=== PATIENT | female | born 1930 | race Caucasian/White ===

== ENCOUNTER 2018-03-29 11:56 | Inpatient (IN) ==
[2018-03-29] MEDS ORDERED: Vancomycin Inj 1,000 MG in Sodium Chlor 0.9% Inj 250 ML IV.SIG STA (12:31)
[2018-03-29] MEDS ORDERED: Acetaminophen 650 MG Supp RECTAL ONE (12:31)
--- NOTE | 2018-03-29 12:40 | ED ---
HPI General Chief Complaint: Fever Stated Complaint: Medical/EVAC Time Seen by Provider: 03/29/18 12:30 History of Present Illness HPI Narrative: Patient comes to the emergency department by EMS sent by her urologist after developing a fever status post lithotripsy today. Patient was given a liter of fluid and started on gentamicin prior to being transferred. Patient's states that over the past 2 days she has had 2 small episodes where she was confused but then went back to normal. States it she was fine today until she developed fever. Patient denies any pain anywhere. However patient believes it is 1975 and Matt is President thus limiting H&P. No modifying factors. Related Data Home Medications Medication Instructions Recorded Confirmed amlodipine 10 mg PO DAILY 03/29/18 03/29/18 atorvastatin 10 mg PO DAILY 03/29/18 03/29/18 carvedilol 6.25 mg PO BID 03/29/18 03/29/18 furosemide 20 mg PO DAILY 03/29/18 03/29/18 glimepiride 1 mg PO QAM 03/29/18 03/29/18 latanoprost 1 drp OPHTHALMIC (EYE) QPM 03/29/18 03/29/18 ramipril 5 mg PO BID 03/29/18 03/29/18 sucralfate 2 g PO DAILY 03/29/18 03/29/18 tamsulosin 0.4 mg PO DAILY 03/29/18 03/29/18 Allergies Allergy/AdvReac Type Severity Reaction Status Date / Time No Known Allergies Allergy Unverified 03/29/18 12:31 Review of Systems ROS Unobtainable unobtainable due to mental status [facility] Medical History Medical History Diabetes (Acute) History of hysterectomy (Acute) Hyperlipemia (Acute) Hypertension (Acute) Throat cancer (Acute) Surgical History Surgical History Knee joint replacement by other means (Acute) Social History Social History Substance History: No History of Abuse Second Hand Smoke Exposure: No Smoking Status: Never smoker How Often Do You Have a Drink Containing Alcohol: Monthly or less Recent Out of Country Travel within the Last 8 Weeks: No Immunization History Tetanus Immunization: <5 Years Hx Influenza Vaccine This Season: Yes Exam Narrative Exam Narrative: GENERAL: Well-developed, overly nourished, in no acute distress , and non-ill appearing. SKIN: Focused skin assessment warm and dry. HEAD: Atraumatic. Normocephalic. EYES: Pupils equal and round. EOMI. No scleral icterus. No injection or drainage. ENT: No nasal bleeding or discharge. Mucous membranes pink and moist. NECK: Trachea midline. Supple. No nuclear rigidity. CARDIOVASCULAR: Regular rate and rhythm. No murmur appreciated. RESPIRATORY: No accessory muscle use. No respiratory distress. Clear to auscultation. Breath sounds equal bilaterally. GASTROINTESTINAL: Abdomen soft, nondistended, and no guarding. Hepatic and splenic margins not palpable. No pulsatile mass. Tenderness to lower abdomen. MUSCULOSKELETAL: No obvious deformities. No clubbing. No cyanosis. No edema. Full range of motion. NEUROLOGICAL: Awake and alert. No obvious cranial nerve deficits. Normal speech. PSYCHIATRIC: Confused. Course Reevaluation(s) Reevaluation #1: Discussed patient with residents trade union official, who are agreeable to admit the patient. Time: 15:20 Initial Documented Vital Signs Temperature 102.6 F H 03/29/18 12:14 Respiratory Rate 16 03/29/18 12:14 Blood Pressure 147/64 H 03/29/18 12:14 Pulse Oximetry 89 L 03/29/18 12:14 Last Documented Vital Signs Temperature 100.8 F H 03/29/18 15:21 Pulse Rate 93 H 03/29/18 14:58 Respiratory Rate 14 03/29/18 12:35 Blood Pressure 123/58 L 03/29/18 14:58 Pulse Oximetry 96 03/29/18 13:24 Medical Decision Making [facility] Narrative Medical decision making narrative: Patient was seen and examined. IV was established patient placed on continuous cardiac monitoring. Sepsis protocol was initiated. Patient was given additional 2 L of IV fluid and started on vancomycin. Patient's family stabilized. Temperature came down after receiving Tylenol suppository. Discussed patient with Dr. Jenkins who saw and evaluated patient and discussed all findings plan of care with patient's family , who are agreeable for patient to be admitted. Discussed patient with residents, who are agreeable to admit the patient. Differential Diagnosis Differential Diagnosis: Sepsis, UTI, pneumonia, SBO, metabolic disturbance Lab Data Result diagrams: 03/29/18 12:47 03/29/18 12:47 Lab Results 03/29/18 03/29/18 03/29/18 Range/Units 12:47 12:47 12:47 WBC 2.5 L (4.0-11.0) th/mm3 RBC 3.55 L (4.00-5.30) mil/mm3 Hgb 10.4 L (11.6-15.3) gm/dL Hct 31.9 L (35.0-46.0) % MCV 89.9 (80.0-100.0) fL MCH 29.4 (27.0-34.0) pg MCHC 32.7 (32.0-36.0) % RDW 13.1 (11.6-17.2) % Plt Count 231 (150-450) th/mm3 MPV 7.7 (7.0-11.0) fL Neut % (Auto) 96.6 H (16.0-70.0) % Lymph % (Auto) 2.1 L (9.0-44.0) % Parker % (Auto) 0.5 (0.0-8.0) % Eos % (Auto) 0.5 (0.0-4.0) % Baso % (Auto) 0.3 (0.0-2.0) % Neut # (Auto) 2.4 (1.8-7.7) th/mm3 Lymph # (Auto) 0.1 L (1.0-4.8) th/mm3 Parker # (Auto) 0.0 (0.0-0.9) th/mm3 Eos # (Auto) 0.0 (0.0-0.4) th/mm3 Baso # (Auto) 0.0 (0.0-0.2) th/mm3 WBC Differential . Differential Comment Auto diff final PT 11.7 H (9.8-11.6) sec INR 1.2 Ratio APTT 21.6 L (24.3-30.1) sec Sodium 143 (136-145) meq/L Potassium 4.0 (3.5-5.1) meq/L Chloride 106 (98-107) meq/L Carbon Dioxide 24.6 (21.0-32.0) meq/L Anion Gap 12 (5-15) meq/L BUN 23 H (7-18) mg/dL Creatinine 1.31 H (0.50-1.00) mg/dL Estimated GFR 38 L (>89) mL/min POC Glucose (68-110) mg/dl Random Glucose 108 H (74-106) mg/dL Lactic Acid (0.4-2.0) mmol/L Calcium 8.7 (8.5-10.1) mg/dL Magnesium 1.8 (1.5-2.5) mg/dL Total Bilirubin 0.8 (0.2-1.0) mg/dL AST 14 L (15-37) U/L ALT 16 (10-53) U/L Alkaline Phosphatase 83 (45-117) U/L Total Protein 7.3 (6.4-8.2) g/dL Albumin 2.7 L (3.4-5.0) g/dL Urine Color (Yellw/Straw) Urine Clarity (Clear) Urine pH (5.0-8.5) Ur Specific [place] (1.002-1.035) Urine Protein (Neg-Trace) mg/dL Urine Glucose (UA) (Negative) mg/dL Urine Ketones (Negative) mg/dL Urine Occult Blood (Negative) Urine Nitrate (Negative) Urine Bilirubin (Negative) Urine Urobilinogen (Less than 2) mg/dL Ur Leukocyte Esterase (Negative) Urine RBC (0-3) /hpf Urine WBC (0-5) /hpf Micro UA Comment Urine Culture Comments 03/29/18 03/29/18 03/29/18 Range/Units 12:47 12:54 13:05 WBC (4.0-11.0) th/mm3 RBC (4.00-5.30) mil/mm3 Hgb (11.6-15.3) gm/dL Hct (35.0-46.0) % MCV (80.0-100.0) fL MCH (27.0-34.0) pg MCHC (32.0-36.0) % RDW (11.6-17.2) % Plt Count (150-450) th/mm3 MPV (7.0-11.0) fL Neut % (Auto) (16.0-70.0) % Lymph % (Auto) (9.0-44.0) % Parker % (Auto) (0.0-8.0) % Eos % (Auto) (0.0-4.0) % Baso % (Auto) (0.0-2.0) % Neut # (Auto) (1.8-7.7) th/mm3 Lymph # (Auto) (1.0-4.8) th/mm3 Parker # (Auto) (0.0-0.9) th/mm3 Eos # (Auto) (0.0-0.4) th/mm3 Baso # (Auto) (0.0-0.2) th/mm3 WBC Differential Differential Comment PT (9.8-11.6) sec INR Ratio APTT (24.3-30.1) sec Sodium (136-145) meq/L Potassium (3.5-5.1) meq/L Chloride (98-107) meq/L Carbon Dioxide (21.0-32.0) meq/L Anion Gap (5-15) meq/L BUN (7-18) mg/dL Creatinine (0.50-1.00) mg/dL Estimated GFR (>89) mL/min POC Glucose 120 H (68-110) mg/dl Random Glucose (74-106) mg/dL Lactic Acid 2.6 H (0.4-2.0) mmol/L Calcium (8.5-10.1) mg/dL Magnesium (1.5-2.5) mg/dL Total Bilirubin (0.2-1.0) mg/dL AST (15-37) U/L ALT (10-53) U/L Alkaline Phosphatase (45-117) U/L Total Protein (6.4-8.2) g/dL Albumin (3.4-5.0) g/dL Urine Color Red (Yellw/Straw) Urine Clarity Cloudy H (Clear) Urine pH 7.0 (5.0-8.5) Ur Specific [place] 1.006 (1.002-1.035) Urine Protein 100 H (Neg-Trace) mg/dL Urine Glucose (UA) Negative (Negative) mg/dL Urine Ketones Negative (Negative) mg/dL Urine Occult Blood Large H (Negative) Urine Nitrate Negative (Negative) Urine Bilirubin Negative (Negative) Urine Urobilinogen Less than 2 (Less than 2) mg/dL Ur Leukocyte Esterase Large H (Negative) Urine RBC (0-3) /hpf Urine WBC 171 H (0-5) /hpf Micro UA Comment Cath-culture ind Urine Culture Comments Cath-cult indicated Imaging Data Radiologist's impression: ITS Impressions Chest X-Ray 03/29/18 12:31 CONCLUSION: Mild pulmonary venous congestion. No definite acute pulmonary infiltrates. Abdomen/Pelvis CT 03/29/18 12:35 CONCLUSION: 1. Left kidney stones. Left ureteral stent in satisfactory position. No evidence of perinephric hematoma or other specific complication 2. Gallstone. Unexplained density adjacent to the right lobe of the liver which could be exophytic liver mass or other mass or artifactual in the setting of significant patient motion. ECG Data Interpretation: EKG reviewed by Dr. Jenkins shows sinus tachycardia with ventricular rate of 106. No STEMI. Discharge Plan Discharge Disposition Patient Disposition: 30 Still Patient Discharge Details Discharge Problem: Sepsis, Acute UTI Physicians Team ED Provider: Broderick Jenkins ED Midlevel Provider: Aly Beaulieu Attending Provider: Laura Figueroa Discharge Interventions Interventions: Vital Signs Last Done: 03/29/18 15:21 Status ED Status: Admitted Patient
[2018-03-29] MEDS ORDERED: Sod Chloride 0.9% Inj 1,000 ML IV.SIG SCH ×2 (12:45)
[2018-03-29 13:17] LABS: Baso % (Auto) 0.3 % (0.0-2.0); Eos % (Auto) 0.5 % (0.0-4.0); Hematocrit 31.9 % (35.0-46.0); Hemoglobin 10.4 gm/dL (11.6-15.3); Lymph # (Auto) 0.1 th/mm3 (1.0-4.8); Lymph % (Auto) 2.1 % (9.0-44.0); Mean Corpuscular HGB Conc 32.7 % (32.0-36.0); Mean Corpuscular Hemoglobin 29.4 pg (27.0-34.0); Mean Corpuscular Volume 89.9 fL (80.0-100.0); Mean Platelet Volume 7.7 fL (7.0-11.0); Mono % (Auto) 0.5 % (0.0-8.0); Neut # (Auto) 2.4 th/mm3 (1.8-7.7); Neut % (Auto) 96.6 % (16.0-70.0); Platelet Count 231 th/mm3 (150-450); Red Blood Count 3.55 mil/mm3 (4.00-5.30); Red Cell Distribution Width 13.1 % (11.6-17.2); White Blood Count 2.5 th/mm3 (4.0-11.0)
[2018-03-29 13:22] LABS: Activated Partial Thrombo Time 21.6 sec (24.3-30.1); INR 1.2 Ratio; Prothrombin Time 11.7 sec (9.8-11.6)
[2018-03-29 13:34] LABS: Bilirubin,Urine Negative (Negative); Clarity,Urine Cloudy (Clear); Color,Urine Red (Yellw/Straw); Glucose,Urine (UA) Negative (Negative); Leukocyte Esterase,Urine Large (Negative); Nitrite,Urine Negative (Negative); Specific Gravity,Urine 1.006 (1.002-1.035)
[2018-03-29 13:39] LABS: Alanine Aminotransferase 16 U/L (10-53); Albumin 2.7 g/dL (3.4-5.0); Anion Gap 12 meq/L (5-15); Aspartate Aminotransferase 14 U/L (15-37); Blood Urea Nitrogen 23 mg/dL (7-18); Calcium 8.7 mg/dL (8.5-10.1); Carbon Dioxide 24.6 meq/L (21.0-32.0); Chloride 106 meq/L (98-107); Glomerular Filtration Rate 38 mL/min (>89); Glucose,Random 108 mg/dL (74-106); Magnesium 1.8 mg/dL (1.5-2.5); Sodium 143 meq/L (136-145)
[2018-03-29 13:41] LABS: Alkaline Phosphatase 83 U/L (45-117); Total Protein 7.3 g/dL (6.4-8.2)
--- NOTE | 2018-03-29 13:46 | CT ---
EXAM DATE: 03/29/2018 1:38 PM EDT AGE/SEX: 87 years / Female INDICATIONS: Patient became septic today after lithotripsy procedure. CLINICAL DATA: This is the patient's initial encounter. Patient reports that signs and symptoms have been present for 1 day and indicates a pain score of 10/10. MEDICAL/SURGICAL HISTORY: Diabetes. Hypertension. Carcinoma, throat. Hysterectomy. RADIATION DOSE: 15.33 CTDI (mGy) COMPARISON: [facility], CHEST 1V SINGLE AP, 03/29/2018. . TECHNIQUE: Multiple contiguous axial images were obtained through the abdomen. Images were obtained using multiple row detector helical technique. Using automated exposure control and adjustment of the mA and/or kV according to patient size, radiation dose was kept as low as reasonably achievable to o btain optimal diagnostic quality images. DICOM format image data is available electronically for rev iew and comparison. FINDINGS: Prominently motion degraded exam. Lower Lungs: The visualized lower lungs are clear. Liver: Density adjacent to the inferior aspect of the right lobe of the liver lateral to the gallblad rosario which may be artifactual though mass is not excluded. Gallstone. No definite biliary ductal dilat ation. Spleen: Homogeneous density without enlargement. Pancreas: Unremarkable without mass or calcification. Kidneys: Left ureteral stent. Left kidney stones. Exophytic posterior right renal cyst. No evidence of perinephric hematoma. Adrenal Glands: Unremarkable. Aorta: The aorta and proximal iliac vessels are grossly unremarkable without aneurysmal dilation. I VC filter in place. Bowel/Mesentery: The bowel loops are grossly unremarkable. The cecum and sigmoid colon have a normal configuration. Abdominal Wall: Intact. Retroperitoneum: No evidence of adenopathy in the retrocrural, para-aortic, or deep pelvic regions. Bladder: Minimally distended with left ureteral stent in good position Reproductive Organs: No abnormal masses or calcifications seen. Inguinal: The inguinal region is unremarkable without evidence of adenopathy. Bony Structures: Unremarkable. CONCLUSION: 1. Left kidney stones. Left ureteral stent in satisfactory position. No evidence of perinephric samantha armando or other specific complication 2. Gallstone. Unexplained density adjacent to the right lobe of the liver which could be exophytic l iver mass or other mass or artifactual in the setting of significant patient motion. Electronically signed by: Gordo Maldonado MD 03/29/2018 1:45 PM EDT
--- NOTE | 2018-03-29 14:09 | XR ---
EXAM DATE: 03/29/2018 1:56 PM EDT AGE/SEX: 87 years / Female INDICATIONS: Fever, blood in urine. CLINICAL DATA: This is the patient's initial encounter. Patient reports that signs and symptoms have been present for 3 days and indicates a pain score of 0/10. MEDICAL/SURGICAL HISTORY: . Kidney stones . Lithotripsy [place] [facility] [place]EL[place]AST, 03/29/2018. . FINDINGS: A single AP view of the chest demonstrates the lungs to be symmetrically aerated without evidence of mass, infiltrate or effusion. There is some mild prominence of the pulmonary vasculature. The cardio mediastinal contours are unremarkable. Osseous structures are intact. CONCLUSION: Mild pulmonary venous congestion. No definite acute pulmonary infiltrates. Electronically signed by: Alpesh Diaz MD 03/29/2018 2:07 PM EDT
--- NOTE | 2018-03-29 16:17 | P.HPFP ---
History of Present Illness Primary Care Physician: Sirisha Renee <CarolinaLaura R - 03/30/18 12:28> Sirisha Renee <Vik Oakley H - 03/29/18 16:17> Chief Complaint: Fever <Vik Oakley H - 03/29/18 19:04> History of Present Illness: Mrs. Jaime is a 87 y/o F presenting to the ED s/p laser lithotripsy with AMS. Patient is unable to provide history, but she is accompanied by her daughter and who provided the history. Patient does answer intermittent yes/no questioning between falling asleep during the interview. They state that her procedure went well with Dr. Klein, Urology. However she became tachycardic with chills post-procedure. Temperature was not obtained per the patient's daughter due to "the monitor's not picking up her temeprature." She was given one dose of morphine for back pain and a dose of gentamicin. Her mental status then acutely changed. She was originally AAOx3 with mild drowsiness prior to the morphine, but became AAOx0 after the medication. Due to her rapid change in mental state as well as her continued tachycardia, patient was transferred to [facility] for further evaluation. Her daughter reports that she is very sensitive to opiate medications. During a previous hospitalization, she has had a very similar episode where she became disoriented after opiate medications. Her also reports two episodes of possible hallucinations this week which is not normal for the patient at her baseline. He states that shortly after awakening she would complain of "men" coming into their house. Upon questioning later in the day, she denied the statements "like they did not happen." Both her daughter and her state that her long-term memory remains intact, however she is beginning to lose her short-term memory. Otherwise they have no acute complaints and the patient denies any chest pain, shortness of breath, NVD, or calf tenderness. Past medical history: -Hyperlipidemia -Hypertension -History of DVT, currently not on anticoagulation due to gastric ulceration. 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 They do not require assistance with ADLs. -Patient ambulates with assistance of walker. -Patient denies any tobacco or illicit drug history. -Patient has occasional alcohol use. <Vik Oakley 03/29/18 19:04> - Diagnosis (1) Severe sepsis (2) Acute UTI (3) Renal stone (4) Creatinine elevation (5) Altered mental status (6) Abnormal finding on CT scan (7) Hypertension (8) Hyperlipidemia (9) Diabetes mellitus (10) Nutrition, metabolism, and development symptoms (11) DVT prophylaxis <Laura Figueroa 03/30/18 12:28> (1) Severe sepsis (2) Acute UTI (3) Renal stone (4) Creatinine elevation (5) Altered mental status (6) Abnormal finding on CT scan (7) Hypertension (8) Hyperlipidemia (9) Diabetes mellitus (10) Nutrition, metabolism, and development symptoms (11) DVT prophylaxis <OakleyVik 03/29/18 17:26> Inpatient Certification: I certify that the inpatient services were ordered in accordance with Medicare regulations governing the order. This includes certification that hospital inpatient services are reasonable and necessary and in the case of services not specified as inpatient-only under 42 CFR 419.22(n), that they are appropriately provided as inpatient services in accordance to with the 2-midnight benchmark under 43 CFR 412.3(e) <RenanradhaLaura R 03/30/18 12:28> I certify that the inpatient services were ordered in accordance with Medicare regulations governing the order. This includes certification that hospital inpatient services are reasonable and necessary and in the case of services not specified as inpatient-only under 42 CFR 419.22(n), that they are appropriately provided as inpatient services in accordance to with the 2-midnight benchmark under 43 CFR 412.3(e) <Vik Oakley 03/29/18 16:17> Estimated Total Length of Stay (Days): 3 <Vik Oakley 03/29/18 16:17> Plans for Post Hospital Care: Home <Vik Oakley 03/29/18 16:17> Review of Systems unobtainable due to mental status (Provided by Daughter and ) <Vik Oakley 03/29/18 16:39> Constitutional: Reports chills, Reports lack of energy <Vik Oakley 16:39> Eyes: Denies blurry vision, Denies double vision [facility] 16: 39> Ears, Nose, Mouth, and Throat: Denies nasal discharge, Denies sore throat < Vik Oakley 03/29/18 16:39> Cardiovascular: Denies chest pain, Denies shortness of breath with activity < Vik Oakley 03/29/18 16:39> Respiratory: Denies cough, Denies shortness of breath [facility] 16:39> Gastrointestinal: Denies abdominal pain, Denies nausea, Denies vomiting < [facility] 03/29/18 16:39> Genitourinary: Reports urinary incontinence, Denies painful urination <Vik Oakley 03/29/18 16:39> Musculoskeletal: Reports back pain, Denies joint pain <Vik Oakley 16:39> Skin/Breast: Denies itching, Denies rash <Vik Oakley 03/29/18 16:39> Psychiatric: Reports sensing things others do not sense, Denies mood swings < Vik Oakley 03/29/18 16:39> PMFSH - History History Provided By: Patient, Significant Other <Vik Oakley 03/29/18 16: 17> - Medical History Medical History: Medical History (Last Reviewed 03/29/18 @ 12:38 by JOYA Moraes) Diabetes History of hysterectomy Hyperlipemia Hypertension Throat cancer <Laura Figueroa 03/30/18 12:28> Medical History (Last Reviewed 03/29/18 @ 12:38 by JOYA Moraes) Diabetes History of hysterectomy Hyperlipemia Hypertension Throat cancer <Vik Oakley 03/29/18 16:17> - Surgical History Surgical History: Surgical History (Last Reviewed 03/29/18 @ 12:38 by JOYA Moraes) Knee joint replacement by other means <Laura Figueroa 03/30/18 12:28> Surgical History (Last Reviewed 03/29/18 @ 12:38 by JOYA Moraes) Knee joint replacement by other means <Vik Oakley 03/29/18 16:17> - Tobacco History Second Hand Smoke Exposure: No <Vik Oakley [facility] 03/29/18 16:17> Smoking Status: Never smoker <OakleyVik - 03/29/18 16:17> - Alcohol History How Often Do You Have a Drink Containing Alcohol: Monthly or less <Vik Oakley - 03/29/18 16:17> - Substance Use History Substance History: No History of Abuse <Vik Oakley - 03/29/18 16:17> - Travel History Recent Travel Out of the Country Within the Last 8 Weeks: No <Vik Oakley - 03/29/18 16:17> - Immunization History Tetanus Immunization: <5 Years <Vik Oakley - 03/29/18 16:17> Hx Influenza Vaccine This Season: Yes <Vik Oakley [facility] 03/29/18 16:17> Medications and Allergies Allergies Allergy/AdvReac Type Severity Reaction Status Date / Time No Known Allergies Allergy Unverified 03/29/18 12:31 <Laura Figueroa - 03/30/18 12:28> Home Medications Medication Instructions Recorded Confirmed Type amlodipine 10 mg PO DAILY 03/29/18 03/29/18 History atorvastatin 10 mg PO DAILY 03/29/18 03/29/18 History carvedilol 6.25 mg PO BID 03/29/18 03/29/18 History furosemide 20 mg PO DAILY 03/29/18 03/29/18 History glimepiride 1 mg PO QAM 03/29/18 03/29/18 History latanoprost 1 drp OPHTHALMIC (EYE) QPM 03/29/18 03/29/18 History ramipril 5 mg PO BID 03/29/18 03/29/18 History sucralfate 2 g PO DAILY 03/29/18 03/29/18 History tamsulosin 0.4 mg PO DAILY 03/29/18 03/29/18 History <Laura Figueroa - 03/30/18 12:28> Active Medications: Active Medications Acetaminophen (Tylenol) 650 mg PO Q4H PRN PRN Reason: Temp > 100.4/Pain 1-10 Last Admin: 03/29/18 21:00 Dose: 650 mg Amlodipine Besylate (Norvasc) 10 mg PO DAILY [facility] Last Admin: 03/30/18 09:55 Dose: 10 mg Atorvastatin Calcium (Lipitor) 10 mg PO DAILY [facility] Last Admin: 03/30/18 09:55 Dose: 10 mg Carvedilol (Coreg) 6.25 mg PO BID [facility] Last Admin: 03/30/18 09:55 Dose: 6.25 mg Clonidine HCl (Catapres) 0.1 mg PO Q6H PRN PRN Reason: BP >180/110 Dextrose (D50w Vial) 50 ml IV.PUSH UNSCH PRN PRN Reason: PER HYPOGLYCEMIA PROTOCOL Furosemide (Lasix) 20 mg PO DAILY [facility] Last Admin: 03/30/18 09:04 Dose: Not Given Glucagon (Glucagon Inj) 1 mg OTHER UNSCH PRN PRN Reason: for Hypoglycemia Protocol Sodium Chloride (Ns Inj) 1,000 mls @ 100 mls/hr IV.CONT .Q10H [facility] Last Infusion: 03/30/18 09:05 Dose: Infused Piperacillin/Tazobactam/Dextrose (Zosyn 2.25 Gm Premix) 50 mls @ 100 mls/hr IV.SIG Q6H [facility] Last Infusion: 03/30/18 09:04 Dose: Infused Pharmacy Profile Note (Vancomycin Consult Pharmacy) 0 mls @ 0 mls/hr OTHER UNSCH [facility] Heparin Sodium/Dextrose (Heparin/D5w 25,000 U/250 Ml) 25,000 unit in 250 mls @ 12.684 mls/hr IV.CONT TITRATE PRN; Protocol PRN Reason: Per Protocol Last Admin: 03/30/18 10:44 Dose: 12 units/kg/hr, 12.68 mls/hr Vancomycin HCl 1,500 mg/ (Sodium Chloride) 515 mls @ 250 mls/hr IV.SIG ONCE ONE Stop: 03/30/18 13:03 Insulin Aspart (Novolog Insulin Suppl Scale Inj) 0 unit SQ ACHS [facility]; Protocol Last Admin: 03/30/18 11:36 Dose: 1 unit Latanoprost (Xalatan 0.005% Opth Drops) 1 drop EACH EYE [facility] Last Admin: 03/29/18 21:04 Dose: Not Given Nitroglycerin (Nitrostat Sl) 0.4 mg SL Q5M PRN PRN Reason: CHEST PAIN Ondansetron HCl (Zofran Odt) 4 mg PO Q6H PRN PRN Reason: NAUSEA Pantoprazole Sodium (Protonix Inj) 40 mg IV.PUSH Q24H [facility] Last Admin: 03/30/18 10:58 Dose: 40 mg Ramipril (Altace) 5 mg PO BID [facility] Last Admin: 03/30/18 10:16 Dose: 5 mg Senna/Docusate Sodium (Marie-Colace) 1 tab PO BID PRN PRN Reason: CONSTIPATION Sucralfate (Carafate) 2 gm PO DAILY [facility] Last Admin: 03/30/18 09:55 Dose: 2 gm <Laura Figueroa R - 03/30/18 12:28> Active Medications Sodium Chloride (Ns Inj) 1,000 mls @ 0 mls/hr IV.SIG .Q0M [facility] Last Admin: 03/29/18 13:23 Dose: 1,000 mls/hr Sodium Chloride (Ns Inj) 1,000 mls @ 0 mls/hr IV.SIG .Q0M [facility] Last Admin: 03/29/18 13:22 Dose: 1,000 mls/hr <Vik Oakley H - 03/29/18 16:17> Exam Vital signs: Vital Signs 03/29/18 12:35 03/29/18 13:24 03/29/18 14:58 Temperature 103.2 F H Pulse Rate 100 H 93 H Respiratory Rate 14 Blood Pressure 117/54 L 123/58 L Pulse Oximetry 96 96 03/29/18 15:21 03/29/18 17:23 03/29/18 20:00 Temperature 100.8 F H 100.6 F H Pulse Rate 87 Respiratory Rate 16 Blood Pressure 117/58 L 122/57 L Pulse Oximetry 95 03/30/18 00:00 03/30/18 04:00 03/30/18 04:50 Temperature 99.6 F 98.3 F Pulse Rate 69 78 68 Respiratory Rate 14 16 Blood Pressure 107/52 L 125/58 L Pulse Oximetry 95 93 L 03/30/18 05:23 03/30/18 06:30 03/30/18 06:35 Temperature Pulse Rate 70 Respiratory Rate 30 H Blood Pressure 147/68 H Pulse Oximetry 96 85 L 96 03/30/18 06:40 03/30/18 06:45 03/30/18 06:50 Temperature Pulse Rate 75 Respiratory Rate Blood Pressure 144/82 H Pulse Oximetry 99 94 L 95 03/30/18 07:00 03/30/18 08:00 03/30/18 09:00 Temperature 97.9 F Pulse Rate 82 78 Respiratory Rate 36 H Blood Pressure 145/69 H 149/71 H Pulse Oximetry 95 93 L 89 L 03/30/18 10:02 03/30/18 11:20 Temperature Pulse Rate Respiratory Rate Blood Pressure Pulse Oximetry 94 L 97 Intake & Output 03/29/18 03/30/18 03/30/18 18:59 06:59 18:59 Intake Total 250 / 250 900 / 900 2750 / 2750 Balance 250 / 250 900 / 900 2750 / 2750 Weight 100 kg 105.7 kg Intake: IV 250 / 250 900 / 900 2750 / 2750 NS Inj 1,000 ML @ 100 mls/hr IV 800 / 800 700 / 700 .CONT .Q10H [facility] Rx#:[id number] Zosyn 2.25 GM Premix 50 ML @ 100 / 100 50 / 50 100 mls/hr IV.SIG Q6H [facility] Rx#: [id number] Other: Weight On Admission 90.4 kg <Laura Figueroa R - 03/30/18 12:28> Vital Signs 03/29/18 12:14 03/29/18 12:35 03/29/18 13:24 Temperature 102.6 F H 103.2 F H Pulse Rate 100 H Respiratory Rate 16 14 Blood Pressure 147/64 H 117/54 L Pulse Oximetry 89 L 96 96 03/29/18 14:58 03/29/18 15:21 Temperature 100.8 F H Pulse Rate 93 H Respiratory Rate Blood Pressure 123/58 L Pulse Oximetry Intake & Output 03/28/18 03/29/18 03/29/18 18:59 06:59 18:59 Weight 100 kg <Vik Oakley H - 03/29/18 16:17> Narrative: GENERAL: Elderly female lying in bed sleeping upon entering the room in no acute distress with daughter and at bedside. PSYCHIATRIC: Unable to evaluate due to sleep/drowsiness. EYES: Pupils miotic and fixed to 3mm. EOMI. Lids and conjunctivae reveal no gross abnormality. No scleral icterus. ENT: Hearing difficulties bilaterally. NCAT. MMM. OP/OC clear. No cervical or supraclavicular LAD. NECK: Full ROM. No stiffness. Supple, no masses. Trachea midline. No thyromegaly. RESPIRATORY: CTAB, no wheezing, crackles, or increased WOB. CARDIOVASCULAR: RRR, no m/r/g. Normal S1, S2 heart sounds. Radial and DP pulses 2+ and symmetric bilaterally. Brisk capillary refill. ABDOMEN: S/ NT/ND. Bowel sounds x 4. No masses or pulsations present. No hepatosplenomegaly. Patient shows discomfort suprapubic palpation. Broussard catheter in place with dark colored urine and reservoir without destiny hematuria. EXTREMITIES: No remarkable dependent edema or varicosities. No clubbing, cyanosis, or erythema. MUSCULOSKELETAL: No calf tenderness. No edema appreciated. SKIN: Essentially clear with no significant rash or lesions. Adequate skin turgor. NEUROLOGICAL: AAOx1. GCS 14 (Eye 4, Verbal 4, Motor 6) Speech- Fluent. No dysarthria or dysphasia. Poor focus, attention, and comprehension secondary to depressed mental state. Cranial nerves- 2 through 12 intact. (Patient with BL difficulty hearing) Motor/sensory/reflexes- Face- No facial droop. No tongue deviation. RUE- 5/5 strength in all musc groups, sensation intact. Reflexes 2+. LUE- 5/5 strength in all musc groups, sensation intact. Reflexes 2+. RLE- 5/5 strength in all musc groups, sensation intact. Reflexes 2+. LLE- 5/5 strength in all musc groups, sensation intact. Reflexes 2+. Babinski-negative No hemispace neglect. Patient able to answer yes/no questioning in ROS. Unable to evaluate short-term memory due to mental status. <Vik Oakley H - 03/29/18 19:04> Results - Labs Result diagrams: 03/30/18 06:19 03/30/18 06:19 <Laura Figueroa - 03/30/18 12:28> Abnormal lab results 03/29/18 03/29/18 03/29/18 Range/Units 12:47 12:47 12:47 WBC 2.5 L (4.0-11.0) th/mm3 RBC 3.55 L (4.00-5.30) mil/mm3 Hgb 10.4 L (11.6-15.3) gm/dL Hct 31.9 L (35.0-46.0) % Neut % (Auto) 96.6 H (16.0-70.0) % Lymph % (Auto) 2.1 L (9.0-44.0) % Neut # (Auto) (1.8-7.7) th/mm3 Lymph # (Auto) 0.1 L (1.0-4.8) th/mm3 [place] # (Auto) (0.0-0.9) th/mm3 Seg Neuts % (Manual) (16-70) % Band Neuts % (Manual) (0-6) % Lymphocytes % (Manual) (9-44) % Abs Neuts (Manual) (1.8-7.7) th/mm3 PT 11.7 H (9.8-11.6) sec APTT 21.6 L (24.3-30.1) sec ABG pH (7.380-7.420) ABG pCO2 (38-42) mmHg ABG HCO3 (22-26) mmol/L ABG Base Excess (-2-2) mmol/L Hemoglobin (12.0-16.0) G/DL Sodium (136-145) meq/L Chloride (98-107) meq/L BUN 23 H (7-18) mg/dL Creatinine 1.31 H (0.50-1.00) mg/dL Estimated GFR 38 L (>89) mL/min POC Glucose (68-110) mg/dl Random Glucose 108 H (74-106) mg/dL Lactic Acid (0.4-2.0) mmol/L Calcium (8.5-10.1) mg/dL AST 14 L (15-37) U/L Troponin I (0.02-0.05) ng/mL B-Natriuretic Peptide (0-100) pg/mL Total Protein (6.4-8.2) g/dL Albumin 2.7 L (3.4-5.0) g/dL Urine Clarity (Clear) Urine Protein (Neg-Trace) mg/dL Urine Occult Blood (Negative) Ur Leukocyte Esterase (Negative) Urine WBC (0-5) /hpf 03/29/18 03/29/18 03/29/18 Range/Units 12:47 12:54 13:05 WBC (4.0-11.0) th/mm3 RBC (4.00-5.30) mil/mm3 Hgb (11.6-15.3) gm/dL Hct (35.0-46.0) % Neut % (Auto) (16.0-70.0) % Lymph % (Auto) (9.0-44.0) % Neut # (Auto) (1.8-7.7) th/mm3 Lymph # (Auto) (1.0-4.8) th/mm3 [place] # (Auto) (0.0-0.9) th/mm3 Seg Neuts % (Manual) (16-70) % Band Neuts % (Manual) (0-6) % Lymphocytes % (Manual) (9-44) % Abs Neuts (Manual) (1.8-7.7) th/mm3 PT (9.8-11.6) sec APTT (24.3-30.1) sec ABG pH (7.380-7.420) ABG pCO2 (38-42) mmHg ABG HCO3 (22-26) mmol/L ABG Base Excess (-2-2) mmol/L Hemoglobin (12.0-16.0) G/DL Sodium (136-145) meq/L Chloride (98-107) meq/L BUN (7-18) mg/dL Creatinine (0.50-1.00) mg/dL Estimated GFR (>89) mL/min POC Glucose 120 H (68-110) mg/dl Random Glucose (74-106) mg/dL Lactic Acid 2.6 H (0.4-2.0) mmol/L Calcium (8.5-10.1) mg/dL AST (15-37) U/L Troponin I (0.02-0.05) ng/mL B-Natriuretic Peptide (0-100) pg/mL Total Protein (6.4-8.2) g/dL Albumin (3.4-5.0) g/dL Urine Clarity Cloudy H (Clear) Urine Protein 100 H (Neg-Trace) mg/dL Urine Occult Blood Large H (Negative) Ur Leukocyte Esterase Large H (Negative) Urine WBC 171 H (0-5) /hpf 03/29/18 03/29/18 03/30/18 Range/Units 19:20 21:17 06:19 WBC (4.0-11.0) th/mm3 RBC (4.00-5.30) mil/mm3 Hgb 9.1 L (11.6-15.3) gm/dL Hct 27.7 L (35.0-46.0) % Neut % (Auto) (16.0-70.0) % Lymph % (Auto) (9.0-44.0) % Neut # (Auto) (1.8-7.7) th/mm3 Lymph # (Auto) (1.0-4.8) th/mm3 [place] # (Auto) (0.0-0.9) th/mm3 Seg Neuts % (Manual) (16-70) % Band Neuts % (Manual) (0-6) % Lymphocytes % (Manual) (9-44) % Abs Neuts (Manual) (1.8-7.7) th/mm3 PT (9.8-11.6) sec APTT (24.3-30.1) sec ABG pH (7.380-7.420) ABG pCO2 (38-42) mmHg ABG HCO3 (22-26) mmol/L ABG Base Excess (-2-2) mmol/L Hemoglobin (12.0-16.0) G/DL Sodium (136-145) meq/L Chloride (98-107) meq/L BUN (7-18) mg/dL Creatinine (0.50-1.00) mg/dL Estimated GFR (>89) mL/min POC Glucose (68-110) mg/dl Random Glucose (74-106) mg/dL Lactic Acid 3.0 H (0.4-2.0) mmol/L Calcium (8.5-10.1) mg/dL AST (15-37) U/L Troponin I 1.52 H* (0.02-0.05) ng/mL B-Natriuretic Peptide (0-100) pg/mL Total Protein (6.4-8.2) g/dL Albumin (3.4-5.0) g/dL Urine Clarity (Clear) Urine Protein (Neg-Trace) mg/dL Urine Occult Blood (Negative) Ur Leukocyte Esterase (Negative) Urine WBC (0-5) /hpf 03/30/18 03/30/18 03/30/18 Range/Units 06:19 06:19 06:56 WBC 28.6 H D (4.0-11.0) th/mm3 RBC 3.14 L (4.00-5.30) mil/mm3 Hgb 9.0 L (11.6-15.3) gm/dL Hct 28.0 L (35.0-46.0) % Neut % (Auto) 94.4 H (16.0-70.0) % Lymph % (Auto) 2.0 L (9.0-44.0) % Neut # (Auto) 26.9 H (1.8-7.7) th/mm3 Lymph # (Auto) 0.6 L (1.0-4.8) th/mm3 [place] # (Auto) 1.0 H (0.0-0.9) th/mm3 Seg Neuts % (Manual) 74 H (16-70) % Band Neuts % (Manual) 21 H (0-6) % Lymphocytes % (Manual) 1 L (9-44) % Abs Neuts (Manual) 27.5 H (1.8-7.7) th/mm3 PT (9.8-11.6) sec APTT (24.3-30.1) sec ABG pH 7.44 H (7.380-7.420) ABG pCO2 32 L (38-42) mmHg ABG HCO3 21 L (22-26) mmol/L ABG Base Excess -2.4 L (-2-2) mmol/L Hemoglobin 11.7 L (12.0-16.0) G/DL Sodium 147 H (136-145) meq/L Chloride 111 H (98-107) meq/L BUN 29 H (7-18) mg/dL Creatinine 1.78 H (0.50-1.00) mg/dL Estimated GFR 27 L (>89) mL/min POC Glucose (68-110) mg/dl Random Glucose (74-106) mg/dL Lactic Acid (0.4-2.0) mmol/L Calcium 7.8 L D (8.5-10.1) mg/dL AST (15-37) U/L Troponin I (0.02-0.05) ng/mL B-Natriuretic Peptide (0-100) pg/mL Total Protein 6.1 L D (6.4-8.2) g/dL Albumin 2.2 L (3.4-5.0) g/dL Urine Clarity (Clear) Urine Protein (Neg-Trace) mg/dL Urine Occult Blood (Negative) Ur Leukocyte Esterase (Negative) Urine WBC (0-5) /hpf 03/30/18 03/30/18 Range/Units 11:31 Unknown WBC (4.0-11.0) th/mm3 RBC (4.00-5.30) mil/mm3 Hgb (11.6-15.3) gm/dL Hct (35.0-46.0) % Neut % (Auto) (16.0-70.0) % Lymph % (Auto) (9.0-44.0) % Neut # (Auto) (1.8-7.7) th/mm3 Lymph # (Auto) (1.0-4.8) th/mm3 [place] # (Auto) (0.0-0.9) th/mm3 Seg Neuts % (Manual) (16-70) % Band Neuts % (Manual) (0-6) % Lymphocytes % (Manual) (9-44) % Abs Neuts (Manual) (1.8-7.7) th/mm3 PT (9.8-11.6) sec APTT (24.3-30.1) sec ABG pH (7.380-7.420) ABG pCO2 (38-42) mmHg ABG HCO3 (22-26) mmol/L ABG Base Excess (-2-2) mmol/L Hemoglobin (12.0-16.0) G/DL Sodium (136-145) meq/L Chloride (98-107) meq/L BUN (7-18) mg/dL Creatinine (0.50-1.00) mg/dL Estimated GFR (>89) mL/min POC Glucose 163 H (68-110) mg/dl Random Glucose (74-106) mg/dL Lactic Acid (0.4-2.0) mmol/L Calcium (8.5-10.1) mg/dL AST (15-37) U/L Troponin I (0.02-0.05) ng/mL B-Natriuretic Peptide 1752 H (0-100) pg/mL Total Protein (6.4-8.2) g/dL Albumin (3.4-5.0) g/dL Urine Clarity (Clear) Urine Protein (Neg-Trace) mg/dL Urine Occult Blood (Negative) Ur Leukocyte Esterase (Negative) Urine WBC (0-5) /hpf Short CBC 03/29/18 03/29/18 03/30/18 Range/Units 12:47 21:17 06:19 WBC 2.5 L 28.6 H D (4.0-11.0) th/mm3 Hgb 10.4 L 9.1 L 9.0 L (11.6-15.3) gm/dL Hct 31.9 L 27.7 L 28.0 L (35.0-46.0) % Plt Count 231 208 (150-450) th/mm3 BMP 03/29/18 03/30/18 12:47 06:19 Sodium 143 147 H Potassium 4.0 3.9 Chloride 106 111 H Carbon Dioxide 24.6 23.2 BUN 23 H 29 H Creatinine 1.31 H 1.78 H Calcium 8.7 7.8 L D Cardiac Enzymes 03/30/18 Range/Units 06:19 Troponin I 1.52 H* (0.02-0.05) ng/mL Liver Function 03/29/18 03/30/18 Range/Units 12:47 06:19 Total Bilirubin 0.8 0.5 (0.2-1.0) mg/dL AST 14 L 18 (15-37) U/L ALT 16 13 (10-53) U/L Alkaline Phosphatase 83 61 (45-117) U/L Albumin 2.7 L 2.2 L (3.4-5.0) g/dL Urine 03/29/18 Range/Units 12:54 Urine Color Red (Yellw/Straw) Urine Clarity Cloudy H (Clear) Urine pH 7.0 (5.0-8.5) Ur Specific [place] 1.006 (1.002-1.035) Urine Protein 100 H (Neg-Trace) mg/dL Urine Glucose (UA) Negative (Negative) mg/dL <Laura Figueroa R - 03/30/18 12:28> Abnormal lab results 03/29/18 03/29/18 03/29/18 Range/Units 12:47 12:47 12:47 WBC 2.5 L (4.0-11.0) th/mm3 RBC 3.55 L (4.00-5.30) mil/mm3 Hgb 10.4 L (11.6-15.3) gm/dL Hct 31.9 L (35.0-46.0) % Neut % (Auto) 96.6 H (16.0-70.0) % Lymph % (Auto) 2.1 L (9.0-44.0) % Lymph # (Auto) 0.1 L (1.0-4.8) th/mm3 PT 11.7 H (9.8-11.6) sec APTT 21.6 L (24.3-30.1) sec BUN 23 H (7-18) mg/dL Creatinine 1.31 H (0.50-1.00) mg/dL Estimated GFR 38 L (>89) mL/min POC Glucose (68-110) mg/dl Random Glucose 108 H (74-106) mg/dL Lactic Acid (0.4-2.0) mmol/L AST 14 L (15-37) U/L Albumin 2.7 L (3.4-5.0) g/dL Urine Clarity (Clear) Urine Protein (Neg-Trace) mg/dL Urine Occult Blood (Negative) Ur Leukocyte Esterase (Negative) Urine WBC (0-5) /hpf 03/29/18 03/29/18 03/29/18 Range/Units 12:47 12:54 13:05 WBC (4.0-11.0) th/mm3 RBC (4.00-5.30) mil/mm3 Hgb (11.6-15.3) gm/dL Hct (35.0-46.0) % Neut % (Auto) (16.0-70.0) % Lymph % (Auto) (9.0-44.0) % Lymph # (Auto) (1.0-4.8) th/mm3 PT (9.8-11.6) sec APTT (24.3-30.1) sec BUN (7-18) mg/dL Creatinine (0.50-1.00) mg/dL Estimated GFR (>89) mL/min POC Glucose 120 H (68-110) mg/dl Random Glucose (74-106) mg/dL Lactic Acid 2.6 H (0.4-2.0) mmol/L AST (15-37) U/L Albumin (3.4-5.0) g/dL Urine Clarity Cloudy H (Clear) Urine Protein 100 H (Neg-Trace) mg/dL Urine Occult Blood Large H (Negative) Ur Leukocyte Esterase Large H (Negative) Urine WBC 171 H (0-5) /hpf Short CBC 03/29/18 Range/Units 12:47 WBC 2.5 L (4.0-11.0) th/mm3 Hgb 10.4 L (11.6-15.3) gm/dL Hct 31.9 L (35.0-46.0) % Plt Count 231 (150-450) th/mm3 BMP 03/29/18 12:47 Sodium 143 Potassium 4.0 Chloride 106 Carbon Dioxide 24.6 BUN 23 H Creatinine 1.31 H Calcium 8.7 Liver Function 03/29/18 Range/Units 12:47 Total Bilirubin 0.8 (0.2-1.0) mg/dL AST 14 L (15-37) U/L ALT 16 (10-53) U/L Alkaline Phosphatase 83 (45-117) U/L Albumin 2.7 L (3.4-5.0) g/dL Urine 03/29/18 Range/Units 12:54 Urine Color Red (Yellw/Straw) Urine Clarity Cloudy H (Clear) Urine pH 7.0 (5.0-8.5) Ur Specific [place] 1.006 (1.002-1.035) Urine Protein 100 H (Neg-Trace) mg/dL Urine Glucose (UA) Negative (Negative) mg/dL <Vik Oakley H - 03/29/18 16:17> - Imaging Impressions Chest X-Ray 03/29/18 12:31 CONCLUSION: Mild pulmonary venous congestion. No definite acute pulmonary infiltrates. Abdomen/Pelvis CT 03/29/18 12:35 CONCLUSION: 1. Left kidney stones. Left ureteral stent in satisfactory position. No evidence of perinephric hematoma or other specific complication 2. Gallstone. Unexplained density adjacent to the right lobe of the liver which could be exophytic liver mass or other mass or artifactual in the setting of significant patient motion. Chest X-Ray 03/30/18 07:02 CONCLUSION: 1. Cardiomegaly with increase in pulmonary vascularity. 2. Prominence of mediastinum. Consider PA and lateral views of the chest for further evaluation. <Laura Figueroa R - 03/30/18 12:28> Impressions Chest X-Ray 03/29/18 12:31 CONCLUSION: Mild pulmonary venous congestion. No definite acute pulmonary infiltrates. Abdomen/Pelvis CT 03/29/18 12:35 CONCLUSION: 1. Left kidney stones. Left ureteral stent in satisfactory position. No evidence of perinephric hematoma or other specific complication 2. Gallstone. Unexplained density adjacent to the right lobe of the liver which could be exophytic liver mass or other mass or artifactual in the setting of significant patient motion. <Vik Oakley - 03/29/18 16:17> Caprini VTE Risk Assessment Caprini VTE Risk Assessment: Moderate/High Risk (score >= 2) <Vik Oakley - 03/29/18 19:04> Bobbi Risk Assessment Model: Point Value = 1 Point Value = 2 Point Value = 3 Point Value = 5 Age 41-60 Minor surgery BMI > 25 kg/m2 Swollen legs Varicose veins or History of unexplained or recurrent spontaneous Oral contraceptives or hormone replacement Sepsis (< 1 month) Serious lung disease, including pneumonia (< 1 month) Abnormal pulmonary function Acute myocardial infarction Congestive heart failure (< 1 month) History of inflammatory bowel disease Medical patient at bed rest Age 61-74 Arthroscopic surgery Major open surgery (> 45 min) Laparoscopic surgery (> 45 min) Malignancy Confined to bed (> 72 hours) Immobilizing plaster cast Central venous access Age >= 75 History of VTE Family history of VTE Factor V Leiden Prothrombin [id number] Lupus anticoagulant Anticardiolipin antibodies Elevated serum homocysteine Heparin-induced thrombocytopenia Other congenital or acquired thrombophilia Stroke (< 1 month) Elective arthroplasty Hip, pelvis, or leg fracture Acute spinal cord injury (< 1 month) <Laura Figueroa - 03/30/18 12:28> Point Value = 1 Point Value = 2 Point Value = 3 Point Value = 5 Age 41-60 Minor surgery BMI > 25 kg/m2 Swollen legs Varicose veins or History of unexplained or recurrent spontaneous Oral contraceptives or hormone replacement Sepsis (< 1 month) Serious lung disease, including pneumonia (< 1 month) Abnormal pulmonary function Acute myocardial infarction Congestive heart failure (< 1 month) History of inflammatory bowel disease Medical patient at bed rest Age 61-74 Arthroscopic surgery Major open surgery (> 45 min) Laparoscopic surgery (> 45 min) Malignancy Confined to bed (> 72 hours) Immobilizing plaster cast Central venous access Age >= 75 History of VTE Family history of VTE Factor V Leiden Prothrombin [id number] Lupus anticoagulant Anticardiolipin antibodies Elevated serum homocysteine Heparin-induced thrombocytopenia Other congenital or acquired thrombophilia Stroke (< 1 month) Elective arthroplasty Hip, pelvis, or leg fracture Acute spinal cord injury (< 1 month) <Vik Oakley H - 03/29/18 16:17> Prophylaxis Regimen: Total Risk Factor Score Risk Level Prophylaxis Regimen 0-1 Low Early ambulation 2 Moderate Order ONE of the following: *Sequential Compression Device (SCD) *Heparin 5000 units SQ BID 3-4 Higher Order ONE of the following medications: *Heparin 5000 units SQ TID *Enoxaparin/Lovenox 40 mg SQ daily (WT < 150 kg, CrCl > 30 mL/min) *Enoxaparin/Lovenox 30 mg SQ daily (WT < 150 kg, CrCl > 10-29 mL/min) *Enoxaparin/Lovenox 30 mg SQ BID (WT < 150 kg, CrCl > 30 mL/min) AND/OR *Sequential Compression Device (SCD) 5 or more Highest Order ONE of the following medications: *Heparin 5000 units SQ TID (Preferred with Epidurals) *Enoxaparin/Lovenox 40 mg SQ daily (WT < 150 kg, CrCl > 30 mL/min) *Enoxaparin/Lovenox 30 mg SQ daily (WT < 150 kg, CrCl > 10-29 mL/min) *Enoxaparin/Lovenox 30 mg SQ BID (WT < 150 kg, CrCl > 30 mL/min) AND *Sequential Compression Device (SCD) <Laura Figueroa R - 03/30/18 12:28> Total Risk Factor Score Risk Level Prophylaxis Regimen 0-1 Low Early ambulation 2 Moderate Order ONE of the following: *Sequential Compression Device (SCD) *Heparin 5000 units SQ BID 3-4 Higher Order ONE of the following medications: *Heparin 5000 units SQ TID *Enoxaparin/Lovenox 40 mg SQ daily (WT < 150 kg, CrCl > 30 mL/min) *Enoxaparin/Lovenox 30 mg SQ daily (WT < 150 kg, CrCl > 10-29 mL/min) *Enoxaparin/Lovenox 30 mg SQ BID (WT < 150 kg, CrCl > 30 mL/min) AND/OR *Sequential Compression Device (SCD) 5 or more Highest Order ONE of the following medications: *Heparin 5000 units SQ TID (Preferred with Epidurals) *Enoxaparin/Lovenox 40 mg SQ daily (WT < 150 kg, CrCl > 30 mL/min) *Enoxaparin/Lovenox 30 mg SQ daily (WT < 150 kg, CrCl > 10-29 mL/min) *Enoxaparin/Lovenox 30 mg SQ BID (WT < 150 kg, CrCl > 30 mL/min) AND *Sequential Compression Device (SCD) <Vik Oakley H - 03/29/18 16:17> Assessment and Plan - Assessment (1) Severe sepsis Code(s): A41.9 - Sepsis, unspecified organism; R65.20 - Severe sepsis without septic shock Status: Acute (2) Acute UTI Code(s): N39.0 - Urinary tract infection, site not specified Status: Acute (3) Renal stone Code(s): N20.0 - Calculus of kidney Status: Acute (4) Creatinine elevation Code(s): R79.89 - Other specified abnormal findings of blood chemistry Status : Acute (5) Altered mental status Code(s): R41.82 - Altered mental status, unspecified Status: Acute (6) Abnormal finding on CT scan Code(s): R93.8 - Abnormal findings on diagnostic imaging of other specified body structures Status: Acute (7) Hypertension Code(s): I10 - Essential (primary) hypertension Status: Chronic (8) Hyperlipidemia Code(s): E78.5 - Hyperlipidemia, unspecified Status: Chronic (9) Diabetes mellitus Code(s): E11.9 - Type 2 diabetes mellitus without complications Status: Chronic (10) Nutrition, metabolism, and development symptoms Code(s): R63.8 - Other symptoms and signs concerning food and fluid intake Status: Acute (11) DVT prophylaxis Status: Acute <Laura Figueroa - 03/30/18 12:28> (1) Severe sepsis Code(s): A41.9 - Sepsis, unspecified organism; R65.20 - Severe sepsis without septic shock Status: Acute Plan: Patient meeting severe sepsis criteria on admission. Patient with fever up to 103.2 degrees as well as sinus tachycardia to 100 bpm. Likely source of infection is likely urinary in origin. Patient's initial lactic acid was elevated at 2.6. -Sepsis protocol in place -Blood and urine cultures pending Medications: -Vancomycin daily, pharmacy consult for dosing -Zosyn 2.25 mg every 6 hours (renally dose) -Normal saline at 100 mL/h (patient received two 1 L normal saline boluses in ED ); cautious with IV fluids as chest x-ray showed mild venous congestion. (2) Acute UTI Code(s): N39.0 - Urinary tract infection, site not specified Status: Acute Plan: Patient admitted for urosepsis s/p lithotripsy. Findings could possibly be secondary to lithotripsy, however medical team to cover with broad spectrum antibiotics until cultures are finalized. -WBC 2.5 with 96.6% neutrophils -UA: Cloudy, 100 protein, large occult blood, large leukocyte esterase, 171 WBC -Blood cultures pending -Urine cultures pending Medications: -Vancomycin and Zosyn as above -Normal saline at 100 mL/h (caution with IV fluids as chest x-ray showed mild venous congestion) (3) Renal stone Code(s): N20.0 - Calculus of kidney Status: Acute Plan: Patient is s/p lithotripsy on 03/29/[address] Klein, Urology. Per family, procedure went well with destruction of "most of her stone." A ureter stent was placed for the next 7-10 days per family report. -CT abdomen and pelvis: Left kidney stones. Left ureteral stent in satisfactory position. No evidence of perinephric hematoma or other specific complication. Other findings as below -Repeat H/H 1 as patient is mildly anemic and is post procedure -Family and informed patient to discontinue tamsulosin at this time -Broussard catheter inserted post procedure per nursing report -Monitor I/Os (4) Creatinine elevation Code(s): R79.89 - Other specified abnormal findings of blood chemistry Status : Acute Plan: Patient presenting post lithotripsy with creatinine elevation. Patient with no recent hospitalizations per chart review and therefore no baseline could be established. -CMP: Creatinine 1.31 -Creatinine clearance calculated to 48 mL/min -Avoid nephrotoxic substances -Renally dose medications Medications: -Normal saline at 100 mL/h (cautious with IV fluids as chest x-ray showed mild pulmonary venous congestion) (5) Altered mental status Code(s): R41.82 - Altered mental status, unspecified Status: Acute Plan: Patient presenting with altered mental status. Patient was given morphine which caused an acute mental status change post procedure. Daughter reports that patient has history of low tolerance of opiate medication and has had "a reaction just like this before." Family also reports increasing short-term memory loss as well as 2 episodes of hallucinations prior to her procedure this week. Per family report, patient's mental status has improved since being transported to the hospital. -Physical exam with somnolence and mild disorientation, however patient is able to answer yes/no questioning during interview. Otherwise no acute issues. -Hold all opiate/altering medications at this time -Neuro checks every 4 hours, nursing staff to contact MD with acute change -Low threshold to proceed with further AMS evaluation with alteration including CT, MRI, carotid US, echocardiogram (6) Abnormal finding on CT scan Code(s): R93.8 - Abnormal findings on diagnostic imaging of other specified body structures Status: Acute Plan: -CT abdomen and pelvis: Left kidney stones with left ureteral stent in satisfactory position. No evidence of perinephric hematoma or other specific complication. Gallstone. Unexpected density adjacent to the right lobe of liver which could be exophytic liver mass, other mass, or artifactual in the setting of significant patient motion. -Discussed imaging with radiology who recommends repeat CT at this time due to patient having chills while in scanner disrupting imaging -Repeat CT ordered, as patient's chills have resolved and is currently in a somnolent state, plan to hold sedating patient for imaging (7) Hypertension Code(s): I10 - Essential (primary) hypertension Status: Chronic Plan: Medications: -Continue home amlodipine, carvedilol, furosemide, and ramipril -Clonidine 0.1 mg every 6 hours as needed for blood pressure greater than 180/ 110 (8) Hyperlipidemia Code(s): E78.5 - Hyperlipidemia, unspecified Status: Chronic Plan: Medications: -Continue home atorvastatin (9) Diabetes mellitus Code(s): E11.9 - Type 2 diabetes mellitus without complications Status: Chronic Plan: Medications: -Hold home glimepiride -Sliding scale insulin per protocol (10) Nutrition, metabolism, and development symptoms Code(s): R63.8 - Other symptoms and signs concerning food and fluid intake Status: Acute Plan: -Fluids: Normal saline at 100 mL/h (monitor for overload as chest x-ray concerning for mild pulmonary venous congestion) -Diet: N.p.o for swallow evaluation, may progress to a diabetic diet as tolerated -Electrolytes: Within normal limits, continue to monitor -Prophylaxis: Calcium carbonate as needed for reflux, Zofran as needed for nausea/vomiting, Marie-Colace as needed for constipation, clonidine as needed for blood pressure greater than 180/110, Tylenol as needed for fever/pain (11) DVT prophylaxis Status: Acute Plan: -SCDs bilaterally -Defer heparin at this time post procedure, plan to initiate medical prophylaxis with prolonged hospital stay <Vik Oakley - 03/29/18 17:26> - Attending Attestation Patient dw the resident team and agree with admission and assessment and plan as written. <Laura Figueroa - 03/30/18 12:28> <Vik Oakley H - Last Filed: 03/29/18 17:26> (5) Altered mental status Qualifiers: Altered mental status type: somnolence Qualified Code(s): R40.0 - Somnolence (7) Hypertension Qualifiers: Hypertension type: essential hypertension Qualified Code(s): I10 - Essential (primary) hypertension (8) Hyperlipidemia Qualifiers: Hyperlipidemia type: unspecified Qualified Code(s): E78.5 - Hyperlipidemia, unspecified (9) Diabetes mellitus Qualifiers: Diabetes mellitus type: type 2 Diabetes mellitus manager intermediate insulin use: unspecified prison insulin use status Diabetes mellitus complication status : with unspecified complications Qualified Code(s): E11.8 - Type 2 diabetes mellitus with unspecified complications <Laura Figueroa R - Last Filed: 03/30/18 12:28> (5) Altered mental status Qualifiers: Altered mental status type: somnolence Qualified Code(s): R40.0 - Somnolence (7) Hypertension Qualifiers: Hypertension type: essential hypertension Qualified Code(s): I10 - Essential (primary) hypertension (8) Hyperlipidemia Qualifiers: Hyperlipidemia type: unspecified Qualified Code(s): E78.5 - Hyperlipidemia, unspecified (9) Diabetes mellitus Qualifiers: Diabetes mellitus type: type 2 Diabetes mellitus manager intermediate insulin use: unspecified manager intermediate insulin use status Diabetes mellitus complication status : with unspecified complications Qualified Code(s): E11.8 - Type 2 diabetes mellitus with unspecified complications <Vik Oakley H - Last Filed: 03/29/18 17:26> (5) Altered mental status Qualifiers: Altered mental status type: somnolence Qualified Code(s): R40.0 - Somnolence (7) Hypertension Qualifiers: Hypertension type: essential hypertension Qualified Code(s): I10 - Essential (primary) hypertension (8) Hyperlipidemia Qualifiers: Hyperlipidemia type: unspecified Qualified Code(s): E78.5 - Hyperlipidemia, unspecified (9) Diabetes mellitus Qualifiers: Diabetes mellitus type: type 2 Diabetes mellitus prison insulin use: unspecified manager intermediate insulin use status Diabetes mellitus complication status : with unspecified complications Qualified Code(s): E11.8 - Type 2 diabetes mellitus with unspecified complications <Laura Figueroa R - Last Filed: 03/30/18 12:28> (5) Altered mental status Qualifiers: Altered mental status type: somnolence Qualified Code(s): R40.0 - Somnolence (7) Hypertension Qualifiers: Hypertension type: essential hypertension Qualified Code(s): I10 - Essential (primary) hypertension (8) Hyperlipidemia Qualifiers: Hyperlipidemia type: unspecified Qualified Code(s): E78.5 - Hyperlipidemia, unspecified (9) Diabetes mellitus Qualifiers: Diabetes mellitus type: type 2 Diabetes mellitus manager intermediate insulin use: unspecified manager intermediate insulin use status Diabetes mellitus complication status : with unspecified complications Qualified Code(s): E11.8 - Type 2 diabetes mellitus with unspecified complications
[2018-03-29] MEDS ORDERED: Vancomycin Consult Pharmacy OTHER ONE (17:03)
[2018-03-29] MEDS ORDERED: Acetaminophen 325 MG Tablet PO PRN (17:07)
[2018-03-29] MEDS ORDERED: Senna/Docusate Sodium 8.6/50 MG Tablet PO PRN (17:07)
[2018-03-29] MEDS ORDERED: Vancomycin Inj 1,000 MG in Sodium Chlor 0.9% Inj 250 ML IV.SIG SCH (18:00)
[2018-03-29] MEDS ORDERED: Vancomycin Consult Pharmacy 1 EACH OTHER SCH (18:00)
[2018-03-29] MEDS ORDERED: Dextrose 50% in Water 50 ML Vial IV.PUSH PRN (18:35)
[2018-03-29] MEDS: Sod Chloride 0.9% Inj 1,000 ML IV.CONT SCH (18:55)
[2018-03-29] MEDS: Piperacil/Tazo 2.25 GM Premix 50 ML IV.SIG SCH (19:26)
[2018-03-29] MEDS: Ramipril 5 MG Capsule PO SCH (21:00)
[2018-03-29] MEDS: Carvedilol 6.25 MG Tablet PO SCH (21:00)
[2018-03-29] MEDS: Latanoprost 0.005% Opth Drops 2.5 ML Bottle EACH EYE SCH (21:04)
[2018-03-29] MEDS: Insulin NovoLOG Aspart Correctional Sugar Inj SQ SCH (21:04)
[2018-03-29 22:07] LABS: Hematocrit 27.7 % (35.0-46.0); Hemoglobin 9.1 gm/dL (11.6-15.3)
[2018-03-30] MEDS: Piperacil/Tazo 2.25 GM Premix 50 ML IV.SIG SCH ×3 (00:11→12:55)
[2018-03-30] MEDS: Sod Chloride 0.9% Inj 1,000 ML IV.CONT SCH ×2 (04:08→14:58)
[2018-03-30 07:17] LABS: ABG Base Excess -2.4 mmol/L (-2-2); ABG PCO2 32 mmHg (38-42); ABG PO2 61 mmHg (61-120)
[2018-03-30 07:22] LABS: Baso % (Auto) 0.1 % (0.0-2.0); Lymph # (Auto) 0.6 th/mm3 (1.0-4.8); Mean Corpuscular HGB Conc 32.1 % (32.0-36.0); Mean Corpuscular Hemoglobin 28.6 pg (27.0-34.0); Mean Corpuscular Volume 89.1 fL (80.0-100.0); Mean Platelet Volume 8.1 fL (7.0-11.0); Mono % (Auto) 3.5 % (0.0-8.0); Neut # (Auto) 26.9 th/mm3 (1.8-7.7); Neut % (Auto) 94.4 % (16.0-70.0); Platelet Count 208 th/mm3 (150-450); Red Blood Count 3.14 mil/mm3 (4.00-5.30); Red Cell Distribution Width 13.3 % (11.6-17.2); White Blood Count 28.6 th/mm3 (4.0-11.0)
--- NOTE | 2018-03-30 07:44 | P.PNADD ---
Addendum to Inpatient Note Reason for Addendum: Additional Documentation Additional information: S: Resident team paged for how he can at at 0700. Nursing staff reported that patient had acute desaturation into the low 80s. Patient was placed on nonrebreather mask and saturations improved to the mid 90s. Patient denied any chest pain but is reporting difficulty breathing. O: O2 sat 94% on Venturi mask, 6 L 50% FiO2, HR mid 80s, RR low to mid 20s GEN: Elderly female sitting upright in bed with Venturi mask in place. Breathing heavily and able to answer questions with short answers CV: Regular rate and rhythm with no murmurs appreciated RESP: Diminished air movement in the right lung conrad compared to the left, no crackles or wheezes appreciated ABD: Nondistended and nontender EXT: Warm and well perfused, no asymmetric edema, erythema or tenderness of the lower extremities A/P: 87-year-old female with recent lithotripsy was admitted for urosepsis he had acute oxygen desaturation with increased oxygen demand -Ordering chest x-ray, ABG -CBC, CMP, troponin, EKG -Also suspicious for possible PE. The day team has arrived so I will defer to them for any further workup of possible clot
--- NOTE | 2018-03-30 07:45 | XR ---
EXAM DATE: 03/30/2018 7:34 AM EDT AGE/SEX: 87 years / Female INDICATIONS: Shortness of breath. CLINICAL DATA: This is the patient's subsequent encounter. Patient reports that signs and symptoms h ave been present for 1 day and indicates a pain score of 0/10. MEDICAL/SURGICAL HISTORY: None. None. COMPARISON: No prior exams available for comparison. FINDINGS: A single AP view of the chest demonstrates cardiomegaly and prominence of the mediastinum. There is s ome pulmonary vascular congestion. No pleural effusions or consolidation. Osseous structures are int act. CONCLUSION: 1. Cardiomegaly with increase in pulmonary vascularity. 2. Prominence of mediastinum. Consider PA and lateral views of the chest for further evaluation. Electronically signed by: Zeeshan Ryder MD 03/30/2018 7:44 AM EDT
[2018-03-30 07:52] LABS: Alanine Aminotransferase 13 U/L (10-53); Albumin 2.2 g/dL (3.4-5.0); Alkaline Phosphatase 61 U/L (45-117); Anion Gap 13 meq/L (5-15); Aspartate Aminotransferase 18 U/L (15-37); Blood Urea Nitrogen 29 mg/dL (7-18); Calcium 7.8 mg/dL (8.5-10.1); Carbon Dioxide 23.2 meq/L (21.0-32.0); Chloride 111 meq/L (98-107); Glomerular Filtration Rate 27 mL/min (>89); Glucose,Random 103 mg/dL (74-106); Lymphocytes 1 % (9-44); Metamyelocytes 1 % (0-1); Monocytes 3 % (0-8); Potassium 3.9 meq/L (3.5-5.1); Sodium 147 meq/L (136-145); Total Protein 6.1 g/dL (6.4-8.2)
[2018-03-30 07:53] LABS: Platelet Estimate Normal (Normal); Platelet Morphology Normal (Normal); RBC Morphology Normal (Normal)
[2018-03-30] MEDS ORDERED: Aspirin 325 MG Tablet PO ONE (08:50)
[2018-03-30] MEDS ORDERED: Heparin Drip 25,000 UNIT/250 ML BAG IV.CONT PRN (08:58)
[2018-03-30] MEDS ORDERED: Heparin 10,000 UNITS/10 ML Vial (for IV use) IV.PUSH STA (08:58)
[2018-03-30] MEDS: Furosemide 20 MG Tablet PO SCH (09:04)
--- NOTE | 2018-03-30 09:04 | P.PNADD ---
Addendum to Inpatient Note Reason for Addendum: Additional Documentation Additional information: Please see resident H/P and addendum for further documentation of the patients history. Patient seen at 8:50am on rounds. Patient had change in status with increased WOB now requiring Oxygen. CXR with signs of pulm edema and troponin elevated to 1.5. Very subtle possible ST depression seen in one lead with very subtle possible early Q in lead 1. Patient with uncertain cardiac history. She denies any h/o CHF or CAD and states only has HTN but her medication list would suggest that she has underlying CHF and a more significant cardiac history than HTN. She denies CP. Vital Signs Temp Pulse Resp BP Pulse Ox 03/30/18 07:00 82 145/69 H 95 03/30/18 06:50 95 03/30/18 06:45 94 L 03/30/18 06:40 75 144/82 H 99 03/30/18 06:35 96 03/30/18 06:30 70 30 H 147/68 H 85 L 03/30/18 05:23 96 03/30/18 04:50 68 03/30/18 04:00 98.3 F 78 16 125/58 L 93 L 03/30/18 00:00 99.6 F 69 14 107/52 L 95 03/29/18 20:00 100.6 F H 87 16 122/57 L 95 03/29/18 17:23 117/58 L 03/29/18 15:21 100.8 F H 03/29/18 14:58 93 H 123/58 L 03/29/18 13:24 96 03/29/18 12:35 103.2 F H 100 H 14 117/54 L 96 03/29/18 12:14 102.6 F H 16 147/64 H 89 L Intake and Output 03/29/18 03/30/18 03/30/18 22:59 06:59 14:59 Intake Total 50 / 50 850 / 850 Balance 50 / 50 850 / 850 Intake: IV 50 / 50 850 / 850 NS Inj 1,000 ML @ 100 mls/hr IV 800 / 800 .CONT .Q10H KEESHA Rx#:[id number] Zosyn 2.25 GM Premix 50 ML @ 50 / 50 50 / 50 100 mls/hr IV.SIG Q6H KEESHA Rx#: [id number] Other: Weight 90.4 kg 105.7 kg Weight On Admission 90.4 kg Laboratory Results - last 12 hr 03/29/18 03/30/18 03/30/18 21:17 06:19 06:19 WBC 28.6 H D RBC 3.14 L Hgb 9.1 L 9.0 L Hct 27.7 L 28.0 L MCV 89.1 MCH 28.6 MCHC 32.1 RDW 13.3 Plt Count 208 MPV 8.1 Prelim Diff (Auto) Slide review pending Neut % (Auto) 94.4 H Lymph % (Auto) 2.0 L Antelope % (Auto) 3.5 Eos % (Auto) 0.0 Baso % (Auto) 0.1 Neut # (Auto) 26.9 H Lymph # (Auto) 0.6 L Antelope # (Auto) 1.0 H Eos # (Auto) 0.0 Baso # (Auto) 0.0 WBC Differential Manual diff final Seg Neuts % (Manual) 74 H Band Neuts % (Manual) 21 H Lymphocytes % (Manual) 1 L Monocytes % (Manual) 3 Metamyelocytes % (Man) 1 Abs Neuts (Manual) 27.5 H Differential Comment . Platelet Estimate Normal Platelet Morphology Normal RBC Morphology Normal Puncture Site Patient Temperature O2 Saturation ABG pH ABG pCO2 ABG pO2 ABG HCO3 ABG O2 Content ABG Base Excess ABG Methemoglobin Farhan Test Hemoglobin Carboxyhemoglobin O2 Delivery Device Inspired O2 Critical Value Sodium Potassium Chloride Carbon Dioxide Anion Gap BUN Creatinine Estimated GFR POC Glucose Random Glucose Calcium Total Bilirubin AST ALT Alkaline Phosphatase Troponin I 1.52 H* Total Protein Albumin Random Vancomycin 03/30/18 03/30/18 03/30/18 06:19 06:42 06:56 WBC RBC Hgb Hct MCV MCH MCHC RDW Plt Count MPV Prelim Diff (Auto) Neut % (Auto) Lymph % (Auto) Antelope % (Auto) Eos % (Auto) Baso % (Auto) Neut # (Auto) Lymph # (Auto) Antelope # (Auto) Eos # (Auto) Baso # (Auto) WBC Differential Seg Neuts % (Manual) Band Neuts % (Manual) Lymphocytes % (Manual) Monocytes % (Manual) Metamyelocytes % (Man) Abs Neuts (Manual) Differential Comment Platelet Estimate Platelet Morphology RBC Morphology Puncture Site Right radial Patient Temperature 98.6 O2 Saturation 90 ABG pH 7.44 H ABG pCO2 32 L ABG pO2 61 ABG HCO3 21 L ABG O2 Content 14.8 ABG Base Excess -2.4 L ABG Methemoglobin 0.8 Farhan Test Present Hemoglobin 11.7 L Carboxyhemoglobin 1.0 O2 Delivery Device Venti mask Inspired O2 50 Critical Value No Sodium 147 H Potassium 3.9 Chloride 111 H Carbon Dioxide 23.2 Anion Gap 13 BUN 29 H Creatinine 1.78 H Estimated GFR 27 L POC Glucose 104 Random Glucose 103 Calcium 7.8 L D Total Bilirubin 0.5 AST 18 ALT 13 Alkaline Phosphatase 61 Troponin I Total Protein 6.1 L D Albumin 2.2 L Random Vancomycin 7.0 Impressions Chest X-Ray 03/29/18 12:31 CONCLUSION: Mild pulmonary venous congestion. No definite acute pulmonary infiltrates. Abdomen/Pelvis CT 03/29/18 12:35 CONCLUSION: 1. Left kidney stones. Left ureteral stent in satisfactory position. No evidence of perinephric hematoma or other specific complication 2. Gallstone. Unexplained density adjacent to the right lobe of the liver which could be exophytic liver mass or other mass or artifactual in the setting of significant patient motion. Chest X-Ray 03/30/18 07:02 CONCLUSION: 1. Cardiomegaly with increase in pulmonary vascularity. 2. Prominence of mediastinum. Consider PA and lateral views of the chest for further evaluation. GENERAL: Lying in bed with non-rebreather mask with increased work of breasting SKIN: Warm and dry, alert, conversant, answers and asks questions HEAD: Atraumatic. Normocephalic. EYES: Pupils equal and round. No scleral icterus. No injection or drainage. ENT: No nasal bleeding or discharge. Mucous membranes pink and moist. NECK: Trachea midline. No JVD. CARDIOVASCULAR: Regular rate and rhythm, no murmurs RESPIRATORY: anteriorly assessed only at this time but clear, no crackles or wheezing noted GASTROINTESTINAL: Abdomen soft, non-tender, nondistended. MUSCULOSKELETAL: Extremities without clubbing, cyanosis, or edema. No obvious deformities. NEUROLOGICAL: Awake and alert. Normal speech. PSYCHIATRIC: Appropriate mood and affect AP 1. Change in status -- suspect this is due to underlying volume overload due to boluses and IVF used to address her sepsis on admission. Suspect even though patient denies this has some underlying CHF. patient being transferred to the ICU for increased monitoring. Troponin is high and very subtle EKG changes without CP. Due to unknown history, etc will treat as ACS. - 40mg IV lasix - ASA, heparin drip - consult cardiology - Patient re-evaluated at 11:00 and was much improved. Back to [place] for oxygen. Echo pending. 2. Urosepsis with bacteremia showing gram negative rods. Her WBC is very elevated today in relation to yesterday even though the patient is clinically improved and afebrile. Makes me doubt the validity of the initial WBC. Continue with the jasmine and oly at this time - Patient had lithotripsy yesterday Patient seen and dw the resident team -- Dr. Hendrickson, Dr. Espinal and Dr. Oakley
[2018-03-30] MEDS: Insulin NovoLOG Aspart Correctional Sugar Inj SQ SCH ×3 (09:52→18:25)
[2018-03-30] MEDS: amLODIPine 10 MG Tablet PO SCH (09:55)
[2018-03-30] MEDS: Sucralfate 1 GM Tablet PO SCH (09:55)
[2018-03-30] MEDS: Carvedilol 6.25 MG Tablet PO SCH ×2 (09:55→22:18)
[2018-03-30] MEDS: Ramipril 5 MG Capsule PO SCH ×2 (10:16→22:18)
--- NOTE | 2018-03-30 10:43 | ECG ---
Date Performed: 03/29/2018 Time Performed: 13:10:19 PTAGE: 87 years EKG: SINUS TACHYCARDIA NONSPECIFIC ST & T-WAVE ABNORMALITY ABNORMAL ECG NO PREVIOUS TRACING DOCTOR: Jon Juárez Interpretating Date/Time 03/30/2018 10:42:51
[2018-03-30] MEDS: Pantoprazole Inj 40 MG Vial IV.PUSH SCH (10:58)
[2018-03-30] MEDS ORDERED: Vancomycin Inj 1,500 MG in Sodium Chlor 0.9% Inj 500 ML IV.SIG ONE (11:00)
--- NOTE | 2018-03-30 11:03 | MB ---
cc: Jon Juárez MD DATE: 03/30/2018 REASON FOR CONSULTATION: Congestive heart failure, abnormal troponin level. HISTORY OF PRESENT ILLNESS: The patient is an unreliable historian. She is unable to answer most questions, stating "I don't know". She is an 87-year-old white female, apparently with a history of hypertension, diabetes, hyperlipidemia, and laryngeal cancer, who was admitted status post lithotripsy due to mental status changes. She was admitted for possible urosepsis. This morning, she developed oxygen desaturation with chest x-ray suggesting increased interstitial markings and troponin level found to be mildly abnormal. The patient denies chest pain, dizziness, syncope, near syncope, palpitations. Occasionally, she experiences pedal edema. At this time, she states she is mildly short of breath. The patient also denies history of paroxysmal nocturnal dyspnea, flu symptoms, or fevers. She cannot recall her primary care physician. 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 PAST MEDICAL HISTORY: As above. No other details are currently available. PAST SURGICAL HISTORY: Hysterectomy. CARDIAC MEDICATIONS AT HOME: 1. Amlodipine 10 mg daily. 2. Atorvastatin 10 mg at bedtime. 3. Carvedilol 6.25 mg b.i.d. 4. Furosemide 20 mg daily. 5. Ramipril 5 mg b.i.d. ALLERGIES: NO KNOWN DRUG ALLERGIES. FAMILY HISTORY: Noncontributory. SOCIAL HISTORY: The patient quit smoking many years ago. She denies alcohol abuse. REVIEW OF SYSTEMS: As in history of present illness, otherwise negative or noncontributory. She also denies headache, abdominal pain, melena, dyspepsia, or bright red blood per rectum. PHYSICAL EXAMINATION: VITAL SIGNS: Her blood pressure 149/70 with a pulse of 78, respirations 30. GENERAL: She is a well-developed, well-nourished white female, in mild respiratory distress. NECK: Jugular venous pressure is normal. Carotid pulses are 2+ bilaterally and without bruits. CHEST: Reveals poor inspiratory effort with decreased breath sounds at the bases. CARDIAC: She has a regular rhythm and rate without definite S3, S4, or murmur. ABDOMEN: She has a soft, nontender abdomen. Bowel sounds are present. There is no definite hepatosplenomegaly. EXTREMITIES: Reveals no clubbing, cyanosis or edema. DIAGNOSTIC STUDIES: EKG from 03/29/2018 at 1:10 p.m. shows sinus tachycardia, nonspecific ST and T-wave abnormality. Chest x-ray from today shows cardiomegaly with increased pulmonary vascularity. LABORATORY DATA: Includes WBC 28.6, hemoglobin 9.0, platelets 208. Potassium 3.9, BUN 29, creatinine 1.78. Troponin 1.52. IMPRESSION: Possible mild acute congestive heart failure, mildly abnormal troponin level in this 87-year-old white female with a history of hypertension, diabetes, hyperlipidemia, and throat cancer. Overall, I doubt the elevation in troponin level is due to acute coronary syndrome. She has no definite chest pain symptoms. I am unable to view her most recent EKG today, but apparently there are no significant acute ST segment or T-wave changes. The troponin level is also elevated in the setting of renal insufficiency. Chest x-ray does suggest the possibility of congestive heart failure. She also appears to be in mild respiratory distress at the present time. In light of her advanced age, poor functional status, renal insufficiency, would recommend overall conservative cardiac evaluation and management. RECOMMENDATIONS: 1. Await subsequent cardiac enzymes. 2. Await her 2D echo. 3. Consider intravenous furosemide diuresis. 4. Continue beta lauro and SHEYLA inhibitor therapy. MD ED Lyons/LLUVIA , 10:06 AM , 11:02 AM JACQUE
--- NOTE | 2018-03-30 11:56 | ECG ---
Date Performed: 03/30/2018 Time Performed: 08:03:02 PTAGE: 87 years EKG: Sinus rhythm Poor R wave progression - probable normal variant Borderline ECG NO PREVIOUS TRACING DOCTOR: Jon Juárez Interpretating Date/Time 03/30/2018 11:55:56
[2018-03-30 12:48] LABS: Magnesium 1.8 mg/dL (1.5-2.5)
[2018-03-30 13:21] LABS: CKMB Percent 1.2 % (0.0-4.0); Creatine Kinase MB 2.4 ng/mL (0.5-3.6)
[2018-03-30 13:36] LABS: Troponin I 1.84 ng/mL (0.02-0.05)
--- NOTE | 2018-03-30 15:36 | ECG ---
Date Performed: 03/30/2018 Time Performed: 12:20:22 PTAGE: 87 years EKG: Sinus rhythm Normal ECG NO PREVIOUS TRACING DOCTOR: Jon Juárez Interpretating Date/Time 03/30/2018 15:34:05
--- NOTE | 2018-03-30 16:42 | P.CONID ---
History of Present Illness Service: ID Consult date: 03/30/18 Requesting Physician: Vik Oakley Reason for Consult: Evaluation and management of ESBL bacteremia and severe sepsis Primary Care Provider: Sirisha Renee Chief Complaint: Fever History of Present Illness: Most of the history was obtained by review of medical records as patient was unable to provide much history. Ms. Jaime is an 87-year-old female who presented to the ED status post lithotripsy with altered mental status. Patient is able to tell me that she underwent surgery on Thursday, March 29, 2018. Reportedly this was done by Dr. Klein urology as outpatient. However patient became tachycardic started having chills post procedure. She was reportedly given 1 dose of gentamicin as well as pain medication. He admits her mentation started worsening and because her daughter was unable to record a temperature she brought her to the hospital. Patient underwent a sepsis workup upon admission. Blood cultures on admission are positive for ESBL Proteus. Urine cultures are still pending. Patient's troponins were elevated and so she is started now on heparin drip. Patient received some IV fluids as part of the resuscitation. ID consulted for evaluation and management of severe sepsis and ESBL Proteus bacteremia Past medical history -Hyperlipidemia -Hypertension -History of DVT, currently not on anticoagulation due to gastric ulceration. 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 Surgical history: -Hysterectomy -Left knee replacement Review of Systems unobtainable due to mental condition [facility] - History History Provided By: Family Member - Medical History Medical History: Medical History (Last Reviewed 03/29/18 @ 12:38 by JOYA Moraes) Diabetes History of hysterectomy Hyperlipemia Hypertension Throat cancer - Surgical History Surgical History: Surgical History (Last Reviewed 03/29/18 @ 12:38 by JOYA Moraes) Knee joint replacement by other means - Tobacco History Second Hand Smoke Exposure: No Smoking Status: Never smoker - Alcohol History How Often Do You Have a Drink Containing Alcohol: Never - Substance Use History Substance History: No History of Abuse - Travel History Recent Travel Out of the Country Within the Last 8 Weeks: No - Immunization History Tetanus Immunization: <5 Years Hx Influenza Vaccine This Season: Yes Medications and Allergies Active Medications: Active Medications Acetaminophen (Tylenol) 650 mg PO Q4H PRN PRN Reason: Temp > 100.4/Pain 1-10 Last Admin: 03/29/18 21:00 Dose: 650 mg Amlodipine Besylate (Norvasc) 10 mg PO DAILY [facility] Last Admin: 03/30/18 09:55 Dose: 10 mg Atorvastatin Calcium (Lipitor) 10 mg PO DAILY [facility] Last Admin: 03/30/18 09:55 Dose: 10 mg Carvedilol (Coreg) 6.25 mg PO BID [facility] Last Admin: 03/30/18 09:55 Dose: 6.25 mg Clonidine HCl (Catapres) 0.1 mg PO Q6H PRN PRN Reason: BP >180/110 Dextrose (D50w Vial) 50 ml IV.PUSH UNSCH PRN PRN Reason: PER HYPOGLYCEMIA PROTOCOL Furosemide (Lasix) 20 mg PO DAILY [facility] Last Admin: 03/30/18 09:04 Dose: Not Given Glucagon (Glucagon Inj) 1 mg OTHER UNSCH PRN PRN Reason: for Hypoglycemia Protocol Sodium Chloride (Ns Inj) 1,000 mls @ 100 mls/hr IV.CONT .Q10H [facility] Last Admin: 03/30/18 14:58 Dose: Not Given Heparin Sodium/Dextrose (Heparin/D5w 25,000 U/250 Ml) 25,000 unit in 250 mls @ 12.684 mls/hr IV.CONT TITRATE PRN; Protocol PRN Reason: Per Protocol Last Admin: 03/30/18 10:44 Dose: 12 units/kg/hr, 12.68 mls/hr Meropenem 1,000 mg/ Sodium (Chloride) 100 mls @ 200 mls/hr IV.SIG Q8H [facility] Insulin Aspart (Novolog Insulin Suppl Scale Inj) 0 unit SQ ACHS [facility]; Protocol Last Admin: 03/30/18 11:36 Dose: 1 unit Latanoprost (Xalatan 0.005% Opth Drops) 1 drop EACH EYE [facility] Last Admin: 03/29/18 21:04 Dose: Not Given Nitroglycerin (Nitrostat Sl) 0.4 mg SL Q5M PRN PRN Reason: CHEST PAIN Ondansetron HCl (Zofran Odt) 4 mg PO Q6H PRN PRN Reason: NAUSEA Pantoprazole Sodium (Protonix Inj) 40 mg IV.PUSH Q24H [facility] Last Admin: 03/30/18 10:58 Dose: 40 mg Ramipril (Altace) 5 mg PO BID [facility] Last Admin: 03/30/18 10:16 Dose: 5 mg Senna/Docusate Sodium (Marie-Colace) 1 tab PO BID PRN PRN Reason: CONSTIPATION Sucralfate (Carafate) 2 gm PO DAILY [facility] Last Admin: 03/30/18 09:55 Dose: 2 gm Allergies Allergy/AdvReac Type Severity Reaction Status Date / Time No Known Allergies Allergy Unverified 03/29/18 12:31 Home Medications Medication Instructions Recorded Confirmed Type amlodipine 10 mg PO DAILY 03/29/18 03/29/18 History atorvastatin 10 mg PO DAILY 03/29/18 03/29/18 History carvedilol 6.25 mg PO BID 03/29/18 03/29/18 History furosemide 20 mg PO DAILY 03/29/18 03/29/18 History glimepiride 1 mg PO QAM 03/29/18 03/29/18 History latanoprost 1 drp OPHTHALMIC (EYE) QPM 03/29/18 03/29/18 History ramipril 5 mg PO BID 03/29/18 03/29/18 History sucralfate 2 g PO DAILY 03/29/18 03/29/18 History tamsulosin 0.4 mg PO DAILY 03/29/18 03/29/18 History Exam Vital signs: Vital Signs 03/29/18 17:23 03/29/18 20:00 03/30/18 00:00 Temperature 100.6 F H 99.6 F Pulse Rate 87 69 Respiratory Rate 16 14 Blood Pressure 117/58 L 122/57 L 107/52 L Pulse Oximetry 95 95 03/30/18 04:00 03/30/18 04:50 03/30/18 05:23 Temperature 98.3 F Pulse Rate 78 68 Respiratory Rate 16 Blood Pressure 125/58 L Pulse Oximetry 93 L 96 03/30/18 06:30 03/30/18 06:35 03/30/18 06:40 Temperature Pulse Rate 70 75 Respiratory Rate 30 H Blood Pressure 147/68 H 144/82 H Pulse Oximetry 85 L 96 99 03/30/18 06:45 03/30/18 06:50 03/30/18 07:00 Temperature Pulse Rate 82 Respiratory Rate Blood Pressure 145/69 H Pulse Oximetry 94 L 95 95 03/30/18 08:00 03/30/18 09:00 07/07/18 10:02 Temperature 97.9 F Pulse Rate 78 Respiratory Rate 36 H Blood Pressure 149/71 H Pulse Oximetry 93 L 89 L 94 L 03/30/18 11:20 03/30/18 12:58 03/30/18 13:38 Temperature 97.6 F 97.3 F L Pulse Rate 65 76 Respiratory Rate 28 H 22 Blood Pressure 125/56 L 121/56 L Pulse Oximetry 97 95 92 L Intake & Output 03/29/18 03/30/18 03/30/18 18:59 06:59 18:59 Intake Total 250 / 250 900 / 900 3265 / 3265 Balance 250 / 250 900 / 900 3265 / 3265 Weight 100 kg 105.7 kg 90.7 kg Intake: IV 250 / 250 900 / 900 3265 / 3265 NS Inj 1,000 ML @ 100 mls/hr IV 800 / 800 700 / 700 .CONT .Q10H [facility] Rx#:[id number] Zosyn 2.25 GM Premix 50 ML @ 100 / 100 50 / 50 100 mls/hr IV.SIG Q6H [facility] Rx#: [id number] Vancomycin Inj 1,500 MG In NS 515 / 515 Inj 500 ML @ 250 mls/hr IV.SIG ONCE ONE Rx#:[id number] Other: Weight On Admission 90.4 kg Narrative: GENERAL: Well-nourished well-developed, not in acute distress SKIN: Cool and dry, no generalized rash HEAD: Atraumatic. Normocephalic. No temporal or scalp tenderness. EYES: Pupils equal round and reactive. Scleral icterus. No injection or drainage. No petechia ENT: Nothing abnormal detected NECK: Trachea midline. Supple, nontender, no meningeal signs. CARDIOVASCULAR: HS audible. RESPIRATORY: Clear to auscultation bilaterally. GASTROINTESTINAL: Abdomen soft nontender. MUSCULOSKELETAL: Extremities without clubbing, cyanosis. Left knee surgical scar intact. NEUROLOGICAL: Alert oriented x 2. Able to move her extremities. Psych cooperative IV line sites ok. Results - Labs CBC & Chem 7: 03/30/18 06:19 03/30/18 06:19 Labs: Laboratory Results - last 24 hr 03/29/18 03/29/18 03/29/18 19:20 19:42 21:17 WBC RBC Hgb 9.1 L Hct 27.7 L MCV MCH MCHC RDW Plt Count MPV Prelim Diff (Auto) Neut % (Auto) Lymph % (Auto) [place] % (Auto) Eos % (Auto) Baso % (Auto) Neut # (Auto) Lymph # (Auto) [place] # (Auto) Eos # (Auto) Baso # (Auto) WBC Differential Seg Neuts % (Manual) Band Neuts % (Manual) Lymphocytes % (Manual) Monocytes % (Manual) Metamyelocytes % (Man) Abs Neuts (Manual) Differential Comment Platelet Estimate Platelet Morphology RBC Morphology Puncture Site Patient Temperature O2 Saturation ABG pH ABG pCO2 ABG pO2 ABG HCO3 ABG O2 Content ABG Base Excess ABG Methemoglobin Farhan Test Hemoglobin Carboxyhemoglobin O2 Delivery Device Inspired O2 Critical Value Sodium Potassium Chloride Carbon Dioxide Anion Gap BUN Creatinine Estimated GFR POC Glucose 107 Random Glucose Lactic Acid 3.0 H Calcium Magnesium Total Bilirubin AST ALT Alkaline Phosphatase Total Creatine Kinase CK-MB (CK-2) CK-MB (CK-2) % Troponin I B-Natriuretic Peptide Total Protein Albumin Random Vancomycin 03/30/18 03/30/18 03/30/18 06:19 06:19 06:19 WBC 28.6 H D RBC 3.14 L Hgb 9.0 L Hct 28.0 L MCV 89.1 MCH 28.6 MCHC 32.1 RDW 13.3 Plt Count 208 MPV 8.1 Prelim Diff (Auto) Slide review pending Neut % (Auto) 94.4 H Lymph % (Auto) 2.0 L [place] % (Auto) 3.5 Eos % (Auto) 0.0 Baso % (Auto) 0.1 Neut # (Auto) 26.9 H Lymph # (Auto) 0.6 L [place] # (Auto) 1.0 H Eos # (Auto) 0.0 Baso # (Auto) 0.0 WBC Differential Manual diff final Seg Neuts % (Manual) 74 H Band Neuts % (Manual) 21 H Lymphocytes % (Manual) 1 L Monocytes % (Manual) 3 Metamyelocytes % (Man) 1 Abs Neuts (Manual) 27.5 H Differential Comment . Platelet Estimate Normal Platelet Morphology Normal RBC Morphology Normal Puncture Site Patient Temperature O2 Saturation ABG pH ABG pCO2 ABG pO2 ABG HCO3 ABG O2 Content ABG Base Excess ABG Methemoglobin Farhan Test Hemoglobin Carboxyhemoglobin O2 Delivery Device Inspired O2 Critical Value Sodium 147 H Potassium 3.9 Chloride 111 H Carbon Dioxide 23.2 Anion Gap 13 BUN 29 H Creatinine 1.78 H Estimated GFR 27 L POC Glucose Random Glucose 103 Lactic Acid Calcium 7.8 L D Magnesium Total Bilirubin 0.5 AST 18 ALT 13 Alkaline Phosphatase 61 Total Creatine Kinase CK-MB (CK-2) CK-MB (CK-2) % Troponin I 1.52 H* B-Natriuretic Peptide Total Protein 6.1 L D Albumin 2.2 L Random Vancomycin 7.0 03/30/18 03/30/18 03/30/18 06:42 06:56 11:31 WBC RBC Hgb Hct MCV MCH MCHC RDW Plt Count MPV Prelim Diff (Auto) Neut % (Auto) Lymph % (Auto) [place] % (Auto) Eos % (Auto) Baso % (Auto) Neut # (Auto) Lymph # (Auto) [place] # (Auto) Eos # (Auto) Baso # (Auto) WBC Differential Seg Neuts % (Manual) Band Neuts % (Manual) Lymphocytes % (Manual) Monocytes % (Manual) Metamyelocytes % (Man) Abs Neuts (Manual) Differential Comment Platelet Estimate Platelet Morphology RBC Morphology Puncture Site Right radial Patient Temperature 98.6 O2 Saturation 90 ABG pH 7.44 H ABG pCO2 32 L ABG pO2 61 ABG HCO3 21 L ABG O2 Content 14.8 ABG Base Excess -2.4 L ABG Methemoglobin 0.8 Farhan Test Present Hemoglobin 11.7 L Carboxyhemoglobin 1.0 O2 Delivery Device Venti mask Inspired O2 50 Critical Value No Sodium Potassium Chloride Carbon Dioxide Anion Gap BUN Creatinine Estimated GFR POC Glucose 104 163 H Random Glucose Lactic Acid Calcium Magnesium Total Bilirubin AST ALT Alkaline Phosphatase Total Creatine Kinase CK-MB (CK-2) CK-MB (CK-2) % Troponin I B-Natriuretic Peptide Total Protein Albumin Random Vancomycin 03/30/18 03/30/18 03/30/18 11:50 12:00 Unknown WBC RBC Hgb Hct MCV MCH MCHC RDW Plt Count MPV Prelim Diff (Auto) Neut % (Auto) Lymph % (Auto) [place] % (Auto) Eos % (Auto) Baso % (Auto) Neut # (Auto) Lymph # (Auto) [place] # (Auto) Eos # (Auto) Baso # (Auto) WBC Differential Seg Neuts % (Manual) Band Neuts % (Manual) Lymphocytes % (Manual) Monocytes % (Manual) Metamyelocytes % (Man) Abs Neuts (Manual) Differential Comment Platelet Estimate Platelet Morphology RBC Morphology Puncture Site Patient Temperature O2 Saturation ABG pH ABG pCO2 ABG pO2 ABG HCO3 ABG O2 Content ABG Base Excess ABG Methemoglobin Farhan Test Hemoglobin Carboxyhemoglobin O2 Delivery Device Inspired O2 Critical Value Sodium Potassium Chloride Carbon Dioxide Anion Gap BUN Creatinine Estimated GFR POC Glucose Random Glucose Lactic Acid 3.1 H Calcium Magnesium 1.8 Total Bilirubin AST ALT Alkaline Phosphatase Total Creatine Kinase 204 H CK-MB (CK-2) 2.4 CK-MB (CK-2) % 1.2 Troponin I 1.84 H* D B-Natriuretic Peptide 1752 H Total Protein Albumin Random Vancomycin - Imaging Impressions Chest X-Ray 03/30/18 07:02 CONCLUSION: 1. Cardiomegaly with increase in pulmonary vascularity. 2. Prominence of mediastinum. Consider PA and lateral views of the chest for further evaluation. Assessment and Plan - Plan Severe sepsis present on admission ESBL Proteus bacteremia likely source could be UTI UTI complicated occurred after lithotripsy Acute metabolic encephalopathy likely secondary to sepsis possible baseline dementia Acute renal failure prerenal, sepsis Recommendations Discontinue Zosyn IV Discontinue Vanco IV Start meropenem IV Repeat blood cultures 2 Follow cultures Follow clinically
--- NOTE | 2018-03-30 17:02 | ECHRPT ---
Indication: Heart Failure CONCLUSIONS The left ventricular systolic function is [id number] reduced with an estimated ejection fr action in the range of 35-40%. Global hypokinesis. Mildly dilated left ventricle. Wall thickness is measured a t the upper limits of normal. The left atrial size is mildly dilated. Mild mitral valve regurgitation. There is mild tricuspid valve regurgitation. The estimated pulmonary arterial pressure is 42 mmHg. BP: / HR: Rhythm: MEASUREMENTS (Male / Female) Normal Values Technical Quality:Fair 2D ECHO LV Diastolic Diameter PLAX 5.9 cm 4.2 - 5.9 / 3.9 - 5.3 cm LV Systolic Diameter PLAX 5.1 cm IVS Diastolic Thickness 1.1 cm 0.6 - 1.0 / 0.6 - 0.9 cm LVPW Diastolic Thickness 1.1 cm 0.6 - 1.0 / 0.6 - 0.9 cm LV Relative Wall Thickness 0.4 RV Internal Dim ED PLAX 3.0 cm LVOT Diameter 2.0 cm LA Systolic Diameter LX 4.3 cm 3.0 - 4.0 / 2.7 - 3.8 cm M-MODE Aortic Root Diameter MM 3.3 cm LA Systolic Diameter MM 4.2 cm LA Ao Ratio MM 1.3 AV Cusp Separation MM 1.7 cm DOPPLER AV Peak Velocity 121.0 cm/s AV Peak Gradient 5.9 mmHg LVOT Peak Velocity 69.1 cm/s LVOT Peak Gradient 1.9 mmHg AV Area Cont Eq pk 1.8 cm MV Area PHT 3.2 cm Mitral E Point Velocity 103.0 cm/s Mitral A Point Velocity 58.7 cm/s Mitral E to A Ratio 1.8 LV E' Lateral Velocity 6.3 cm/s Mitral E to LV E' Lateral Ratio 16.3 LV E' Septal Velocity 4.4 cm/s Mitral E to LV E' Septal Ratio 23.5 TR Peak Velocity 303.0 cm/s TR Peak Gradient 36.7 mmHg Right Atrial Pressure 10.0 mmHg Pulmonary Artery Systolic Pressu 46.7 mmHg Right Ventricular Systolic Press 46.7 mmHg FINDINGS LEFT VENTRICLE The left ventricular systolic function is [id number] reduced with an estimated ejection fr action in the range of 35-40%. Global hypokinesis. Mildly dilated left ventricle. Wall thickness is measured a t the upper limits of normal. RIGHT VENTRICLE Normal right ventricular size and systolic function. LEFT ATRIUM The left atrial size is mildly dilated. RIGHT ATRIUM The right atrial size is normal. ATRIAL SEPTUM Normal atrial septal thickness without atrial level shunting by limited color doppler interrogation. AORTA The aortic root and proximal ascending aorta are normal in size on limited imaging. MITRAL VALVE Mitral annular calcification is present. Mild mitral valve regurgitation. AORTIC VALVE Trileaflet aortic valve. No aortic valve stenosis or regurgitation. TRICUSPID VALVE Structurally normal tricuspid valve. There is mild tricuspid valve regurgitation. The estimated pulmonary arterial pressure is 42 mmHg. PULMONARY VALVE No pulmonary valve regurgitation or stenosis. VESSELS The inferior vena cava is normal in size. PERICARDIUM No pericardial effusion. Jon Juárez MD (Electronically Signed) Final Date:30 March 2018 17:01
--- NOTE | 2018-03-30 18:17 | ECG ---
Date Performed: 03/30/2018 Time Performed: 17:59:00 PTAGE: 87 years EKG: Sinus rhythm NORMAL ECG PREVIOUS TRACING : 03/30/2018 12.20 No significant change from previous tracing noted. DOCTOR: Jon Juárez Interpretating Date/Time 03/30/2018 18:16:34
[2018-03-30 19:42] LABS: Troponin I 1.66 ng/mL (0.02-0.05)
[2018-03-30 19:53] LABS: INR 1.4 Ratio; Prothrombin Time 14.4 sec (9.8-11.6)
[2018-03-30] MEDS: Latanoprost 0.005% Opth Drops 2.5 ML Bottle EACH EYE SCH (22:19)
[2018-03-31] MEDS: Insulin NovoLOG Aspart Correctional Sugar Inj SQ SCH ×5 (02:20→22:11)
[2018-03-31 04:57] LABS: Baso # (Auto) 0.1 th/mm3 (0.0-0.2); Baso % (Auto) 0.4 % (0.0-2.0); Eos # (Auto) 0.2 th/mm3 (0.0-0.4); Eos % (Auto) 0.7 % (0.0-4.0); Hematocrit 28.7 % (35.0-46.0); Hemoglobin 9.3 gm/dL (11.6-15.3); Lymph # (Auto) 0.8 th/mm3 (1.0-4.8); Lymph % (Auto) 2.5 % (9.0-44.0); Mean Corpuscular HGB Conc 32.5 % (32.0-36.0); Mean Corpuscular Hemoglobin 28.6 pg (27.0-34.0); Mean Platelet Volume 8.3 fL (7.0-11.0); Mono # (Auto) 0.7 th/mm3 (0.0-0.9); Mono % (Auto) 2.1 % (0.0-8.0); Neut # (Auto) 29.6 th/mm3 (1.8-7.7); Neut % (Auto) 94.3 % (16.0-70.0); Platelet Count 203 th/mm3 (150-450); Red Blood Count 3.26 mil/mm3 (4.00-5.30); Red Cell Distribution Width 13.4 % (11.6-17.2); White Blood Count 31.4 th/mm3 (4.0-11.0)
[2018-03-31 05:26] LABS: Calcium 8.2 mg/dL (8.5-10.1); Carbon Dioxide 25.2 meq/L (21.0-32.0); Potassium 3.5 meq/L (3.5-5.1)
[2018-03-31] MEDS: Ramipril 5 MG Capsule PO SCH ×2 (08:41→21:27)
[2018-03-31] MEDS: amLODIPine 10 MG Tablet PO SCH (08:41)
[2018-03-31] MEDS: Sucralfate 1 GM Tablet PO SCH (08:41)
[2018-03-31] MEDS: Carvedilol 6.25 MG Tablet PO SCH ×2 (08:41→21:22)
[2018-03-31] MEDS: Sod Chloride 0.9% Inj 1,000 ML IV.CONT SCH ×2 (08:42→09:02)
[2018-03-31] MEDS: Furosemide 20 MG Tablet PO SCH (08:42)
[2018-03-31] MEDS: Pantoprazole Inj 40 MG Vial IV.PUSH SCH (09:03)
[2018-03-31 09:18] LABS: Eosinophils 1 % (0-4); Lymphocytes 7 % (9-44); Monocytes 5 % (0-8); Toxic Granulation 1+
[2018-03-31 09:19] LABS: Platelet Estimate Normal (Normal); Platelet Morphology Normal (Normal); Toxic Vacuolation Present
--- NOTE | 2018-03-31 10:11 | P.PNCA ---
Subjective Interval history: Denies dyspnea, CP, dizziness, PND, palpitations. Physical Exam Vital signs: Vital Signs 03/30/18 11:20 03/30/18 12:58 03/30/18 13:38 Temperature 97.6 F 97.3 F L Pulse Rate 65 76 Respiratory Rate 28 H 22 Blood Pressure 125/56 L 121/56 L Pulse Oximetry 97 95 92 L 03/30/18 16:00 03/30/18 20:00 03/31/18 00:00 Temperature 97.8 F 98.3 F 97.8 F Pulse Rate 59 L 71 69 Respiratory Rate 17 22 20 Blood Pressure 139/64 127/65 137/63 Pulse Oximetry 100 97 94 L 03/31/18 04:00 Temperature 98 F Pulse Rate 68 Respiratory Rate 20 Blood Pressure 136/74 Pulse Oximetry 96 Intake & Output 03/30/18 03/31/18 03/31/18 18:59 06:59 18:59 Intake Total 3515 / 3515 994 / 994 Output Total 300 / 300 350 / 350 Balance 3215 / 3215 644 / 644 Weight 90.7 kg 90.5 kg Intake: IV 3265 / 3265 100 / 100 NS Inj 1,000 ML @ 100 mls/hr IV 700 / 700 .CONT .Q10H [facility] Rx#:[id number] Merrem Inj 1,000 MG In NS Inj 100 / 100 100 ML @ 200 mls/hr IV.SIG Q12H [facility] Rx#:[id number] Zosyn 2.25 GM Premix 50 ML @ 50 / 50 100 mls/hr IV.SIG Q6H [facility] Rx#: [id number] Vancomycin Inj 1,500 MG In NS 515 / 515 Inj 500 ML @ 250 mls/hr IV.SIG ONCE ONE Rx#:[id number] Oral 250 / 250 650 / 650 Other 244 / 244 Output: Urine 300 / 300 350 / 350 Other: # Incontinent Voids 2 2 Date of Last Bowel Movement 03/31/18 # Bowel Movements 0 1 - Constitutional no acute distress - Routine Neck Exam Absent: JVD - Routine Respiratory Exam Comments: Lungs clear anteriorly. - Routine Cardiovascular Exam Present: RRR, S1, S2. Absent: murmur, gallop - Routine Abdominal Exam Present: soft, normoactive bowel sounds. Absent: tenderness, organomegaly - Routine Extremities Exam Absent: cyanosis, clubbing, edema Assessment and Plan - Assessment (1) Dilated cardiomyopathy Code(s): I42.0 - Dilated cardiomyopathy Status: Chronic Plan: EF approximately 35-40% by echo with global hypokinesis. Overall appears compensated. BNP level substantially reduced today. Suspect her cardiomyopathy is non-ischemic in origin. REC continue beta lauro (increase dose), diuretic; no SHEYLA-I or ARB with her renal insufficiency; repeat echo in 3-4 months will f/u PRN rest of hospital stay; I can see her in f/u after discharge (2) Elevated troponin Code(s): R74.8 - Abnormal levels of other serum enzymes Status: Acute Plan: Stable overnight. Doubt increase in troponin level due to ACS. Possibly due to renal insufficiency, CHF. In light of her renal insufficiency, advanced age , lack of any angina-like symptoms, recommend conservative evaluation and treatment. Continue beta lauro, add aspirin. Can stop heparin. (3) Hypertension Code(s): I10 - Essential (primary) hypertension Status: Chronic Plan: Stable. Mostly normotensive. - Plan Code Status: alternative code Discussed Condition With: patient (3) Hypertension Qualifiers: Hypertension type: essential hypertension Qualified Code(s): I10 - Essential (primary) hypertension
--- NOTE | 2018-03-31 12:37 | P.PNFP ---
Subjective Interval history: Patient seen and examined this morning. Patient is currently on nasal cannula, sitting up in bed comfortably. No complaints of shortness of breath or chest pain. She denies fever, chills, abdominal pain, problems urinating or leg pain. At bedside we explained that she is receiving antibiotics for the urinary and subsequent infection of her blood. We also discussed that the echocardiogram showed decreased heart function and that we will be following cardiology's recommendations from today's visit. She notes that she would like some water, but is currently cleared for honey syrup consistency liquids, so we will get another bedside swallow study. <Ama Hendrickson B - 03/31/18 13:56> Results - Labs Result diagrams: 04/01/18 05:48 04/01/18 05:48 <Laura Figueroa - 04/01/18 11:58> Abnormal lab results 03/31/18 03/31/18 03/31/18 Range/Units 12:24 18:21 22:04 WBC (4.0-11.0) th/mm3 RBC (4.00-5.30) mil/mm3 Hgb (11.6-15.3) gm/dL Hct (35.0-46.0) % Sodium (136-145) meq/L Potassium (3.5-5.1) meq/L Chloride (98-107) meq/L BUN (7-18) mg/dL Creatinine (0.50-1.00) mg/dL Estimated GFR (>89) mL/min POC Glucose 147 H 132 H 155 H (68-110) mg/dl 04/01/18 04/01/18 04/01/18 Range/Units 05:48 05:48 08:51 WBC 33.1 H (4.0-11.0) th/mm3 RBC 3.31 L (4.00-5.30) mil/mm3 Hgb 9.5 L (11.6-15.3) gm/dL Hct 29.2 L (35.0-46.0) % Sodium 147 H (136-145) meq/L Potassium 3.0 L (3.5-5.1) meq/L Chloride 112 H (98-107) meq/L BUN 36 H (7-18) mg/dL Creatinine 1.05 H (0.50-1.00) mg/dL Estimated GFR 50 L (>89) mL/min POC Glucose 123 H (68-110) mg/dl Short CBC 04/01/18 Range/Units 05:48 WBC 33.1 H (4.0-11.0) th/mm3 Hgb 9.5 L (11.6-15.3) gm/dL Hct 29.2 L (35.0-46.0) % Plt Count 192 (150-450) th/mm3 BMP 04/01/18 05:48 Sodium 147 H Potassium 3.0 L Chloride 112 H Carbon Dioxide 25.2 BUN 36 H Creatinine 1.05 H Calcium 8.6 <Laura Figueroa R - 04/01/18 11:58> Abnormal lab results 03/29/18 03/30/18 03/30/18 Range/Units 12:54 11:50 12:00 WBC (4.0-11.0) th/mm3 RBC (4.00-5.30) mil/mm3 Hgb (11.6-15.3) gm/dL Hct (35.0-46.0) % Neut % (Auto) (16.0-70.0) % Lymph % (Auto) (9.0-44.0) % Neut # (Auto) (1.8-7.7) th/mm3 Lymph # (Auto) (1.0-4.8) th/mm3 Band Neuts % (Manual) (0-6) % Lymphocytes % (Manual) (9-44) % Abs Neuts (Manual) (1.8-7.7) th/mm3 Toxic Granulation (None) Toxic Vacuolation (None) PT (9.8-11.6) sec APTT (24.3-30.1) sec Sodium (136-145) meq/L Chloride (98-107) meq/L BUN (7-18) mg/dL Creatinine (0.50-1.00) mg/dL Estimated GFR (>89) mL/min POC Glucose (68-110) mg/dl Lactic Acid 3.1 H (0.4-2.0) mmol/L Calcium (8.5-10.1) mg/dL Total Creatine Kinase 204 H (26-192) U/L Troponin I 1.84 H* D (0.02-0.05) ng/mL B-Natriuretic Peptide (0-100) pg/mL Urine Clarity Cloudy H (Clear) Urine Protein 100 H (Neg-Trace) mg/dL Urine Occult Blood Large H (Negative) Ur Leukocyte Esterase Large H (Negative) Urine WBC 171 H (0-5) /hpf 03/30/18 03/30/18 03/30/18 Range/Units 18:13 18:17 18:37 WBC (4.0-11.0) th/mm3 RBC (4.00-5.30) mil/mm3 Hgb (11.6-15.3) gm/dL Hct (35.0-46.0) % Neut % (Auto) (16.0-70.0) % Lymph % (Auto) (9.0-44.0) % Neut # (Auto) (1.8-7.7) th/mm3 Lymph # (Auto) (1.0-4.8) th/mm3 Band Neuts % (Manual) (0-6) % Lymphocytes % (Manual) (9-44) % Abs Neuts (Manual) (1.8-7.7) th/mm3 Toxic Granulation (None) Toxic Vacuolation (None) PT 14.4 H (9.8-11.6) sec APTT 267.0 H* (24.3-30.1) sec Sodium (136-145) meq/L Chloride (98-107) meq/L BUN (7-18) mg/dL Creatinine (0.50-1.00) mg/dL Estimated GFR (>89) mL/min POC Glucose 126 H (68-110) mg/dl Lactic Acid (0.4-2.0) mmol/L Calcium (8.5-10.1) mg/dL Total Creatine Kinase (26-192) U/L Troponin I 1.66 H* D (0.02-0.05) ng/mL B-Natriuretic Peptide (0-100) pg/mL Urine Clarity (Clear) Urine Protein (Neg-Trace) mg/dL Urine Occult Blood (Negative) Ur Leukocyte Esterase (Negative) Urine WBC (0-5) /hpf 03/30/18 03/30/18 03/31/18 Range/Units 18:37 21:16 01:22 WBC (4.0-11.0) th/mm3 RBC (4.00-5.30) mil/mm3 Hgb (11.6-15.3) gm/dL Hct (35.0-46.0) % Neut % (Auto) (16.0-70.0) % Lymph % (Auto) (9.0-44.0) % Neut # (Auto) (1.8-7.7) th/mm3 Lymph # (Auto) (1.0-4.8) th/mm3 Band Neuts % (Manual) (0-6) % Lymphocytes % (Manual) (9-44) % Abs Neuts (Manual) (1.8-7.7) th/mm3 Toxic Granulation (None) Toxic Vacuolation (None) PT (9.8-11.6) sec APTT 31.8 H D (24.3-30.1) sec Sodium (136-145) meq/L Chloride (98-107) meq/L BUN (7-18) mg/dL Creatinine (0.50-1.00) mg/dL Estimated GFR (>89) mL/min POC Glucose 115 H (68-110) mg/dl Lactic Acid 2.1 H (0.4-2.0) mmol/L Calcium (8.5-10.1) mg/dL Total Creatine Kinase (26-192) U/L Troponin I (0.02-0.05) ng/mL B-Natriuretic Peptide (0-100) pg/mL Urine Clarity (Clear) Urine Protein (Neg-Trace) mg/dL Urine Occult Blood (Negative) Ur Leukocyte Esterase (Negative) Urine WBC (0-5) /hpf 03/31/18 03/31/18 03/31/18 Range/Units 04:26 04:26 04:26 WBC 31.4 H (4.0-11.0) th/mm3 RBC 3.26 L (4.00-5.30) mil/mm3 Hgb 9.3 L (11.6-15.3) gm/dL Hct 28.7 L (35.0-46.0) % Neut % (Auto) 94.3 H (16.0-70.0) % Lymph % (Auto) 2.5 L (9.0-44.0) % Neut # (Auto) 29.6 H (1.8-7.7) th/mm3 Lymph # (Auto) 0.8 L (1.0-4.8) th/mm3 Band Neuts % (Manual) 23 H (0-6) % Lymphocytes % (Manual) 7 L (9-44) % Abs Neuts (Manual) 27.3 H (1.8-7.7) th/mm3 Toxic Granulation 1+ H (None) Toxic Vacuolation Present H (None) PT (9.8-11.6) sec APTT (24.3-30.1) sec Sodium 146 H (136-145) meq/L Chloride 111 H (98-107) meq/L BUN 37 H (7-18) mg/dL Creatinine 1.53 H (0.50-1.00) mg/dL Estimated GFR 32 L (>89) mL/min POC Glucose (68-110) mg/dl Lactic Acid (0.4-2.0) mmol/L Calcium 8.2 L (8.5-10.1) mg/dL Total Creatine Kinase (26-192) U/L Troponin I (0.02-0.05) ng/mL B-Natriuretic Peptide 397 H (0-100) pg/mL Urine Clarity (Clear) Urine Protein (Neg-Trace) mg/dL Urine Occult Blood (Negative) Ur Leukocyte Esterase (Negative) Urine WBC (0-5) /hpf 03/31/18 03/31/18 Range/Units 07:57 08:45 WBC (4.0-11.0) th/mm3 RBC (4.00-5.30) mil/mm3 Hgb (11.6-15.3) gm/dL Hct (35.0-46.0) % Neut % (Auto) (16.0-70.0) % Lymph % (Auto) (9.0-44.0) % Neut # (Auto) (1.8-7.7) th/mm3 Lymph # (Auto) (1.0-4.8) th/mm3 Band Neuts % (Manual) (0-6) % Lymphocytes % (Manual) (9-44) % Abs Neuts (Manual) (1.8-7.7) th/mm3 Toxic Granulation (None) Toxic Vacuolation (None) PT (9.8-11.6) sec APTT 32.9 H (24.3-30.1) sec Sodium (136-145) meq/L Chloride (98-107) meq/L BUN (7-18) mg/dL Creatinine (0.50-1.00) mg/dL Estimated GFR (>89) mL/min POC Glucose 120 H (68-110) mg/dl Lactic Acid (0.4-2.0) mmol/L Calcium (8.5-10.1) mg/dL Total Creatine Kinase (26-192) U/L Troponin I (0.02-0.05) ng/mL B-Natriuretic Peptide (0-100) pg/mL Urine Clarity (Clear) Urine Protein (Neg-Trace) mg/dL Urine Occult Blood (Negative) Ur Leukocyte Esterase (Negative) Urine WBC (0-5) /hpf Short CBC 03/31/18 Range/Units 04:26 WBC 31.4 H (4.0-11.0) th/mm3 Hgb 9.3 L (11.6-15.3) gm/dL Hct 28.7 L (35.0-46.0) % Plt Count 203 (150-450) th/mm3 BMP 03/31/18 04:26 Sodium 146 H Potassium 3.5 Chloride 111 H Carbon Dioxide 25.2 BUN 37 H Creatinine 1.53 H Calcium 8.2 L Cardiac Enzymes 03/30/18 03/30/18 Range/Units 12:00 18:37 Total Creatine Kinase 204 H 148 (26-192) U/L CK-MB (CK-2) 2.4 (0.5-3.6) ng/mL Troponin I 1.84 H* D 1.66 H* D (0.02-0.05) ng/mL Urine 03/29/18 Range/Units 12:54 Urine Color Red (Yellw/Straw) Urine Clarity Cloudy H (Clear) Urine pH 7.0 (5.0-8.5) Ur Specific Millen 1.006 (1.002-1.035) Urine Protein 100 H (Neg-Trace) mg/dL Urine Glucose (UA) Negative (Negative) mg/dL <Ama Hendrickson - 03/31/18 12:37> Physical Exam Vital signs: Vital Signs 03/31/18 12:00 03/31/18 16:00 03/31/18 17:05 Temperature 98.2 F 97.9 F Pulse Rate 71 66 Respiratory Rate 23 Blood Pressure 96/46 L 117/57 L Pulse Oximetry 93 L 98 98 03/31/18 20:00 03/31/18 20:19 04/01/18 00:00 Temperature 98 F 98.2 F Pulse Rate 65 62 Respiratory Rate 16 22 Blood Pressure 128/60 127/58 L Pulse Oximetry 94 L 95 04/01/18 04:00 04/01/18 08:00 04/01/18 08:11 Temperature 98 F Pulse Rate 60 68 Respiratory Rate 17 Blood Pressure 131/62 Pulse Oximetry 96 Intake & Output 03/31/18 04/01/18 04/01/18 18:59 06:59 18:59 Intake Total 700 / 700 1350 / 1350 Output Total 500 / 500 450 / 450 Balance 200 / 200 900 / 900 Weight 87.3 kg Intake: IV 100 / 100 Merrem Inj 1,000 MG In NS Inj 100 / 100 100 ML @ 200 mls/hr IV.SIG Q12H KEESHA Rx#:[id number] Oral 600 / 600 1200 / 1200 Other 150 / 150 Output: Urine 500 / 500 450 / 450 Other: # Incontinent Voids 1 1 Date of Last Bowel Movement 03/31/18 03/31/18 03/31/18 # Incontinent Bowel Movements 1 1 <Laura Figueroa R - 04/01/18 11:58> Vital Signs 03/30/18 12:58 03/30/18 13:38 03/30/18 16:00 Temperature 97.6 F 97.3 F L 97.8 F Pulse Rate 65 76 59 L Respiratory Rate 28 H 22 17 Blood Pressure 125/56 L 121/56 L 139/64 Pulse Oximetry 95 92 L 100 03/30/18 20:00 03/31/18 00:00 03/31/18 04:00 Temperature 98.3 F 97.8 F 98 F Pulse Rate 71 69 68 Respiratory Rate 22 20 20 Blood Pressure 127/65 137/63 136/74 Pulse Oximetry 97 94 L 96 Intake & Output 03/30/18 03/31/18 03/31/18 18:59 06:59 18:59 Intake Total 3515 / 3515 994 / 994 Output Total 300 / 300 350 / 350 Balance 3215 / 3215 644 / 644 Weight 90.7 kg 90.5 kg Intake: IV 3265 / 3265 100 / 100 NS Inj 1,000 ML @ 100 mls/hr IV 700 / 700 .CONT .Q10H KEESHA Rx#:[id number] Merrem Inj 1,000 MG In NS Inj 100 / 100 100 ML @ 200 mls/hr IV.SIG Q12H KEESHA Rx#:[id number] Zosyn 2.25 GM Premix 50 ML @ 50 / 50 100 mls/hr IV.SIG Q6H KEESHA Rx#: [id number] Vancomycin Inj 1,500 MG In NS 515 / 515 Inj 500 ML @ 250 mls/hr IV.SIG ONCE ONE Rx#:[id number] Oral 250 / 250 650 / 650 Other 244 / 244 Output: Urine 300 / 300 350 / 350 Other: # Incontinent Voids 2 2 Date of Last Bowel Movement 03/31/18 # Bowel Movements 0 1 <[facility] 03/31/18 12:37> Narrative: sitting up in bed, breathing comfortably on nasal cannula <[facility] 03/31/18 12:37> - Constitutional no acute distress <[facility] 03/31/18 12:37> - Routine HEENT Exam Head: Present: normocephalic, atraumatic <[facility] 03/31/18 12:37> Eye: Present: EOMI. Absent: scleral injection <[facility] 03/31/18 12: 37> - Routine Respiratory Exam Present: CTA bilaterally. Absent: accessory muscle use, stridor, wheezes, crackles <[facility] 03/31/18 13:56> - Routine Cardiovascular Exam Present: RRR. Absent: murmur <[facility] 03/31/18 13:56> - Routine Abdominal Exam Present: soft, normoactive bowel sounds, tenderness (mild, diffuse, per patient associated with needing to urinate ) <[facility] 03/31/18 13:56> - Routine Extremities Exam Present: pulses intact, normal capillary refill. Absent: edema, calf tenderness <[facility] 03/31/18 13:56> - Routine Skin Exam Present: dry, warm <[facility] 03/31/18 13:56> - Routine Neurological Exam Present: alert, moving all extremities <[facility] 03/31/18 13:56> Assessment and Plan - Assessment (1) Severe sepsis Code(s): A41.9 - Sepsis, unspecified organism; R65.20 - Severe sepsis without septic shock Status: Acute (2) Acute UTI Code(s): N39.0 - Urinary tract infection, site not specified Status: Acute (3) Dilated cardiomyopathy Code(s): I42.0 - Dilated cardiomyopathy Status: Chronic (4) Elevated troponin Code(s): R74.8 - Abnormal levels of other serum enzymes Status: Acute (5) Shortness of breath Code(s): R06.02 - Shortness of breath Status: Acute (6) Creatinine elevation Code(s): R79.89 - Other specified abnormal findings of blood chemistry Status : Acute (7) Renal stone Code(s): N20.0 - Calculus of kidney Status: Acute (8) Altered mental status Code(s): R41.82 - Altered mental status, unspecified Status: Acute (9) Abnormal finding on CT scan Code(s): R93.8 - Abnormal findings on diagnostic imaging of other specified body structures Status: Acute (10) Hypertension Code(s): I10 - Essential (primary) hypertension Status: Chronic (11) Hyperlipidemia Code(s): E78.5 - Hyperlipidemia, unspecified Status: Chronic (12) Diabetes mellitus Code(s): E11.9 - Type 2 diabetes mellitus without complications Status: Chronic (13) Nutrition, metabolism, and development symptoms Code(s): R63.8 - Other symptoms and signs concerning food and fluid intake Status: Acute (14) DVT prophylaxis Status: Acute <Laura Figueroa - 04/01/18 11:58> (1) Severe sepsis Code(s): A41.9 - Sepsis, unspecified organism; R65.20 - Severe sepsis without septic shock Status: Acute Plan: Patient meeting severe sepsis criteria on admission. Patient with fever up to 103.2 degrees as well as sinus tachycardia to 100 bpm. Likely source of infection is likely urinary in origin. Patient's initial lactic acid was elevated at 2.6. -Sepsis protocol in place on 03/29 -WBC 28.6 on 03/30 significantly increased from 2.5 on admission on 03/29. WBC 31.4 on 03/31, with 23% bands. -Blood cultures from 03/29 positive for ESBL, Proteus species and MRSA 03/31, on Vancomycin and Zosyn. -Blood cultures from 03/30 show NGTD -Urine cultures positive for Proteus mirabilis and MRSA 03/31 -ID consulted: Due to EBSL, patient changed to Meropenem 1g. Vancomycin and Zosyn discontinued. Medications: -Meropenem 1mg IV, started on 03/30 -Vancomycin daily, pharmacy consult for dosing. Stopped on 03/31 -Zosyn 2.25 mg every 6 hours (renally dose). Stopped on 03/31. -Normal saline at 100 mL/h (patient received two 1 L normal saline boluses in ED ); cautious with IV fluids as chest x-ray showed mild venous congestion. (2) Acute UTI Code(s): N39.0 - Urinary tract infection, site not specified Status: Acute Plan: Patient admitted for urosepsis s/p lithotripsy. Findings could possibly be secondary to lithotripsy, however medical team to cover with broad spectrum antibiotics until cultures are finalized. -WBC 2.5 with 96.6% neutrophils on admission. WBC increased to 28.6 on 03/30 and 31.4 on 03/31. -UA: Cloudy, 100 protein, large occult blood, large leukocyte esterase, 171 WBC -Blood cultures from 03/29 positive for ESBL, Proteus species and MRSA 03/31 -Blood cultures from 03/30 show NGTD -Urine cultures positive for Proteus mirabilis and MRSA 03/31 Medications: -Vancomycin and Zosyn as above -Normal saline at 100 mL/h (caution with IV fluids as chest x-ray showed mild venous congestion) (3) Dilated cardiomyopathy Code(s): I42.0 - Dilated cardiomyopathy Status: Chronic Plan: 2D Echo on 03/30 showed EF approximately 35-40% by echo with global hypokinesis and mild regurgitation of mitral and tricuspid valves. BNP 1752 on 03/30, decreased to 387 on 03/31. -On Lasix 20mg PO daily -Awaiting cardio consult (4) Elevated troponin Code(s): R74.8 - Abnormal levels of other serum enzymes Status: Acute Plan: Troponin on 03/30 1.66. Serial troponins showed peak at 1.84 at 12:00 on 03/30. Started treatment for ACS. 03/31 Troponin 1.52, decreased from 1.84 on 03/30. -ASA and heparin drip started on 03/30 -Cardiology consulted (5) Shortness of breath Code(s): R06.02 - Shortness of breath Status: Acute Plan: MINAL called at 7AM on 03/30 for increased work of breath, requiring 5-6 L on non-rebreather mask. Denied chest pain. ACS and CHF r/o started. 03/31 SOB now resolved. Patient denies any chest pain. -CXR showed signs of pulmonary edema -Troponins elevated, as seen above -BNP elevated, as seen above -started on ASA, heparin drip, lasix 40 mg IV bolus, as seen above -Echocardiogram results as seen above -Cardiology consulted (6) Creatinine elevation Code(s): R79.89 - Other specified abnormal findings of blood chemistry Status : Acute Plan: Patient presenting post lithotripsy with creatinine elevation. Patient with no recent hospitalizations per chart review and therefore no baseline could be established. -CMP: Creatinine 1.35 on 03/31 -Creatinine clearance calculated to 32 mL/min on 03/31 -Avoid nephrotoxic substances -Renally dose medications Medications: -Normal saline at 100 mL/h (cautious with IV fluids as chest x-ray showed mild pulmonary venous congestion) (7) Renal stone Code(s): N20.0 - Calculus of kidney Status: Acute Plan: Patient is s/p lithotripsy on 03/29/[address] Klein, Urology. Per family, procedure went well with destruction of "most of her stone." A ureter stent was placed for the next 7-10 days per family report. -CT abdomen and pelvis: Left kidney stones. Left ureteral stent in satisfactory position. No evidence of perinephric hematoma or other specific complication. Other findings as below -H/H stable -Discontinued tamsulosin on 03/29 -Monitor I/Os (8) Altered mental status Code(s): R41.82 - Altered mental status, unspecified Status: Acute Plan: Patient presenting with altered mental status. Patient was given morphine which caused an acute mental status change post procedure. Daughter reports that patient has history of low tolerance of opiate medication and has had "a reaction just like this before." Family also reports increasing short-term memory loss as well as 2 episodes of hallucinations prior to her procedure this week. Per family report, patient's mental status has improved since being transported to the hospital. -Physical exam with somnolence and mild disorientation, however patient is able to answer yes/no questioning during interview. Otherwise no acute issues. -Hold all opiate/altering medications at this time -Neuro checks every 4 hours, nursing staff to contact MD with acute change -Low threshold to proceed with further AMS evaluation with alteration including CT, MRI, carotid US, echocardiogram (9) Abnormal finding on CT scan Code(s): R93.8 - Abnormal findings on diagnostic imaging of other specified body structures Status: Acute Plan: -CT abdomen and pelvis: Left kidney stones with left ureteral stent in satisfactory position. No evidence of perinephric hematoma or other specific complication. Gallstone. Unexpected density adjacent to the right lobe of liver which could be exophytic liver mass, other mass, or artifactual in the setting of significant patient motion. -Discussed imaging with radiology who recommends repeat CT at this time due to patient having chills while in scanner disrupting imaging -Repeat CT ordered, as patient's chills have resolved and is currently in a somnolent state, plan to hold sedating patient for imaging -CT not repeated - 03/31 (10) Hypertension Code(s): I10 - Essential (primary) hypertension Status: Chronic Plan: Medications: -Continue home amlodipine, carvedilol, furosemide, and ramipril -Clonidine 0.1 mg every 6 hours as needed for blood pressure greater than 180/ 110 (11) Hyperlipidemia Code(s): E78.5 - Hyperlipidemia, unspecified Status: Chronic Plan: Medications: -Continue home atorvastatin (12) Diabetes mellitus Code(s): E11.9 - Type 2 diabetes mellitus without complications Status: Chronic Plan: Medications: -Hold home glimepiride -Sliding scale insulin per protocol (13) Nutrition, metabolism, and development symptoms Code(s): R63.8 - Other symptoms and signs concerning food and fluid intake Status: Acute Plan: -Fluids: Normal saline at 100 mL/h (monitor for overload as chest x-ray concerning for mild pulmonary venous congestion) -Diet: N.p.o for swallow evaluation, may progress to a diabetic diet as tolerated -Electrolytes: Within normal limits, continue to monitor -Prophylaxis: Calcium carbonate as needed for reflux, Zofran as needed for nausea/vomiting, Marie-Colace as needed for constipation, clonidine as needed for blood pressure greater than 180/110, Tylenol as needed for fever/pain (14) DVT prophylaxis Status: Acute Plan: -SCDs bilaterally -Defer heparin at this time post procedure, plan to initiate medical prophylaxis with prolonged hospital stay <Ama Hendrickson - 03/31/18 15:01> - Attending Attestation The exam, history, and the medical decision-making described in the above note were completed with the assistance of the resident physician. I reviewed and agree with the findings presented. I attest that I had a [id number] encounter with the patient on the same day, and personally performed and documented my assessment and findings in the medical record. <Laura Figueroa - 04/01/18 11:58> <Ama Henrdickson - Last Filed: 03/31/18 15:01> (8) Altered mental status Qualifiers: Altered mental status type: somnolence Qualified Code(s): R40.0 - Somnolence (10) Hypertension Qualifiers: Hypertension type: essential hypertension Qualified Code(s): I10 - Essential (primary) hypertension (11) Hyperlipidemia Qualifiers: Hyperlipidemia type: unspecified Qualified Code(s): E78.5 - Hyperlipidemia, unspecified (12) Diabetes mellitus Qualifiers: Diabetes mellitus type: type 2 Diabetes mellitus oil heaterman insulin use: unspecified prison insulin use status Diabetes mellitus complication status : with unspecified complications Qualified Code(s): E11.8 - Type 2 diabetes mellitus with unspecified complications <Laura Figueroa - Last Filed: 04/01/18 11:58> (8) Altered mental status Qualifiers: Altered mental status type: somnolence Qualified Code(s): R40.0 - Somnolence (10) Hypertension Qualifiers: Hypertension type: essential hypertension Qualified Code(s): I10 - Essential (primary) hypertension (11) Hyperlipidemia Qualifiers: Hyperlipidemia type: unspecified Qualified Code(s): E78.5 - Hyperlipidemia, unspecified (12) Diabetes mellitus Qualifiers: Diabetes mellitus type: type 2 Diabetes mellitus prison insulin use: unspecified oil heaterman insulin use status Diabetes mellitus complication status : with unspecified complications Qualified Code(s): E11.8 - Type 2 diabetes mellitus with unspecified complications <Ama Hendrickson B - Last Filed: 03/31/18 15:01> (8) Altered mental status Qualifiers: Altered mental status type: somnolence Qualified Code(s): R40.0 - Somnolence (10) Hypertension Qualifiers: Hypertension type: essential hypertension Qualified Code(s): I10 - Essential (primary) hypertension (11) Hyperlipidemia Qualifiers: Hyperlipidemia type: unspecified Qualified Code(s): E78.5 - Hyperlipidemia, unspecified (12) Diabetes mellitus Qualifiers: Diabetes mellitus type: type 2 Diabetes mellitus prison insulin use: unspecified prison insulin use status Diabetes mellitus complication status : with unspecified complications Qualified Code(s): E11.8 - Type 2 diabetes mellitus with unspecified complications <Laura Figueroa R - Last Filed: 04/01/18 11:58> (8) Altered mental status Qualifiers: Altered mental status type: somnolence Qualified Code(s): R40.0 - Somnolence (10) Hypertension Qualifiers: Hypertension type: essential hypertension Qualified Code(s): I10 - Essential (primary) hypertension (11) Hyperlipidemia Qualifiers: Hyperlipidemia type: unspecified Qualified Code(s): E78.5 - Hyperlipidemia, unspecified (12) Diabetes mellitus Qualifiers: Diabetes mellitus type: type 2 Diabetes mellitus oil heaterman insulin use: unspecified prison insulin use status Diabetes mellitus complication status : with unspecified complications Qualified Code(s): E11.8 - Type 2 diabetes mellitus with unspecified complications
[2018-03-31] MEDS: DAPTOmycin Inj 900 MG in Sodium Chlor 0.9% Inj 100 ML IV.SIG SCH (14:12)
--- NOTE | 2018-03-31 16:06 | P.PNID ---
Subjective Remarks: Ms. Jaime is an 87-year-old female who presented to the ED status post lithotripsy with altered mental status. Patient is able to tell me that she underwent surgery on Thursday, March 29, 2018. Reportedly this was done by Dr. Klein urology as outpatient. However patient became tachycardic started having chills post procedure. She was reportedly given 1 dose of gentamicin as well as pain medication. He admits her mentation started worsening and because her daughter was unable to record a temperature she brought her to the hospital. Patient underwent a sepsis workup upon admission. Blood cultures on admission are positive for ESBL Proteus. Urine cultures are still pending. Patient's troponins were elevated and so she is started now on heparin drip. Patient received some IV fluids as part of the resuscitation. ID consulted for evaluation and management of severe sepsis and ESBL Proteus bacteremia Past medical history -Hyperlipidemia -Hypertension -History of DVT, currently not on anticoagulation due to gastric ulceration. 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 No fevers No rash No diarrhea Antibiotics: Meropenem IV Lines: Lines ok Past Medical History: reviewed Allergies/Adverse Reactions: Allergies No Known Allergies Allergy (Unverified 03/29/18 12:31) Objective Vital Signs 03/30/18 20:00 03/31/18 00:00 03/31/18 04:00 Temperature 98.3 F 97.8 F 98 F Pulse Rate 71 69 68 Respiratory Rate 22 20 20 Blood Pressure 127/65 137/63 136/74 Pulse Oximetry 97 94 L 96 03/31/18 08:00 03/31/18 09:00 03/31/18 12:00 Temperature 98.0 F 98.2 F Pulse Rate 79 79 71 Respiratory Rate 24 23 Blood Pressure 139/65 96/46 L Pulse Oximetry 93 L 93 L Intake & Output 03/30/18 03/31/18 03/31/18 18:59 06:59 18:59 Intake Total 3515 / 3515 994 / 994 100 / 100 Output Total 300 / 300 350 / 350 Balance 3215 / 3215 644 / 644 100 / 100 Weight 90.7 kg 90.5 kg Intake: IV 3265 / 3265 100 / 100 100 / 100 NS Inj 1,000 ML @ 100 mls/hr IV 700 / 700 .CONT .Q10H [facility] Rx#:[id number] Merrem Inj 1,000 MG In NS Inj 100 / 100 100 / 100 100 ML @ 200 mls/hr IV.SIG Q12H [facility] Rx#:[id number] Zosyn 2.25 GM Premix 50 ML @ 50 / 50 100 mls/hr IV.SIG Q6H [facility] Rx#: [id number] Vancomycin Inj 1,500 MG In NS 515 / 515 Inj 500 ML @ 250 mls/hr IV.SIG ONCE ONE Rx#:[id number] Oral 250 / 250 650 / 650 Other 244 / 244 Output: Urine 300 / 300 350 / 350 Other: # Incontinent Voids 2 2 Date of Last Bowel Movement 03/31/18 03/31/18 # Bowel Movements 0 1 03/29/18 12:54 Catheterized Urine Urine Culture - Preliminary Proteus mirabilis S. aureus MRSA 03/30/18 18:37 Blood - Peripheral Aerobic Blood Culture - Preliminary No growth in 1 day 03/30/18 18:37 Blood - Peripheral Anaerobic Blood Culture - Preliminary No growth in 1 day 03/30/18 18:30 Blood - Peripheral Aerobic Blood Culture - Preliminary No growth in 1 day 03/30/18 18:30 Blood - Peripheral Anaerobic Blood Culture - Preliminary No growth in 1 day 03/29/18 12:47 Blood - Peripheral Aerobic Blood Culture - Preliminary S. aureus MRSA 03/29/18 12:47 Blood - Peripheral Anaerobic Blood Culture - Preliminary gram negative rods 03/29/18 12:41 Blood - Peripheral Aerobic Blood Culture - Preliminary S. aureus MRSA 03/29/18 12:41 Blood - Peripheral Anaerobic Blood Culture - Preliminary Proteus species ESBL Lab - Hematology Results 03/29/18 03/30/18 03/31/18 21:17 06:19 04:26 WBC 28.6 H D 31.4 H RBC 3.14 L 3.26 L Hgb 9.1 L 9.0 L 9.3 L Hct 27.7 L 28.0 L 28.7 L MCV 89.1 88.0 MCH 28.6 28.6 MCHC 32.1 32.5 RDW 13.3 13.4 Plt Count 208 203 MPV 8.1 8.3 Prelim Diff (Auto) Slide review pending Slide review pending Neut % (Auto) 94.4 H 94.3 H Lymph % (Auto) 2.0 L 2.5 L Emery % (Auto) 3.5 2.1 Eos % (Auto) 0.0 0.7 Baso % (Auto) 0.1 0.4 Neut # (Auto) 26.9 H 29.6 H Lymph # (Auto) 0.6 L 0.8 L Emery # (Auto) 1.0 H 0.7 Eos # (Auto) 0.0 0.2 Baso # (Auto) 0.0 0.1 WBC Differential Manual diff final Manual diff final Seg Neuts % (Manual) 74 H 64 Band Neuts % (Manual) 21 H 23 H Lymphocytes % (Manual) 1 L 7 L Monocytes % (Manual) 3 5 Eosinophils % (Manual) 1 Metamyelocytes % (Man) 1 Abs Neuts (Manual) 27.5 H 27.3 H Differential Comment . . Toxic Granulation 1+ H Toxic Vacuolation Present H Platelet Estimate Normal Normal Platelet Morphology Normal Normal RBC Morphology Normal Lab - Chemistry Results 03/29/18 03/29/18 03/30/18 19:20 19:42 06:19 Sodium Potassium Chloride Carbon Dioxide Anion Gap BUN Creatinine Estimated GFR POC Glucose 107 Random Glucose Lactic Acid 3.0 H Calcium Magnesium Total Bilirubin AST ALT Alkaline Phosphatase Total Creatine Kinase CK-MB (CK-2) CK-MB (CK-2) % Troponin I 1.52 H* B-Natriuretic Peptide Total Protein Albumin 03/30/18 03/30/18 03/30/18 06:19 06:42 11:31 Sodium 147 H Potassium 3.9 Chloride 111 H Carbon Dioxide 23.2 Anion Gap 13 BUN 29 H Creatinine 1.78 H Estimated GFR 27 L POC Glucose 104 163 H Random Glucose 103 Lactic Acid Calcium 7.8 L D Magnesium Total Bilirubin 0.5 AST 18 ALT 13 Alkaline Phosphatase 61 Total Creatine Kinase CK-MB (CK-2) CK-MB (CK-2) % Troponin I B-Natriuretic Peptide Total Protein 6.1 L D Albumin 2.2 L 03/30/18 03/30/18 03/30/18 11:50 12:00 18:13 Sodium Potassium Chloride Carbon Dioxide Anion Gap BUN Creatinine Estimated GFR POC Glucose 126 H Random Glucose Lactic Acid 3.1 H Calcium Magnesium 1.8 Total Bilirubin AST ALT Alkaline Phosphatase Total Creatine Kinase 204 H CK-MB (CK-2) 2.4 CK-MB (CK-2) % 1.2 Troponin I 1.84 H* D B-Natriuretic Peptide Total Protein Albumin 03/30/18 03/30/18 03/30/18 18:37 18:37 21:16 Sodium Potassium Chloride Carbon Dioxide Anion Gap BUN Creatinine Estimated GFR POC Glucose 115 H Random Glucose Lactic Acid 2.1 H Calcium Magnesium Total Bilirubin AST ALT Alkaline Phosphatase Total Creatine Kinase 148 CK-MB (CK-2) CK-MB (CK-2) % Troponin I 1.66 H* D B-Natriuretic Peptide Total Protein Albumin 03/30/18 03/31/18 03/31/18 Unknown 01:22 04:26 Sodium 146 H Potassium 3.5 Chloride 111 H Carbon Dioxide 25.2 Anion Gap 10 BUN 37 H Creatinine 1.53 H Estimated GFR 32 L POC Glucose Random Glucose 103 Lactic Acid 1.8 Calcium 8.2 L Magnesium Total Bilirubin AST ALT Alkaline Phosphatase Total Creatine Kinase CK-MB (CK-2) CK-MB (CK-2) % Troponin I B-Natriuretic Peptide 1752 H Total Protein Albumin 03/31/18 03/31/18 03/31/18 04:26 07:57 12:24 Sodium Potassium Chloride Carbon Dioxide Anion Gap BUN Creatinine Estimated GFR POC Glucose 120 H 147 H Random Glucose Lactic Acid Calcium Magnesium Total Bilirubin AST ALT Alkaline Phosphatase Total Creatine Kinase CK-MB (CK-2) CK-MB (CK-2) % Troponin I B-Natriuretic Peptide 397 H Total Protein Albumin Imaging: ITS Impressions Abdomen/Pelvis CT 03/29/18 12:35 CONCLUSION: 1. Left kidney stones. Left ureteral stent in satisfactory position. No evidence of perinephric hematoma or other specific complication 2. Gallstone. Unexplained density adjacent to the right lobe of the liver which could be exophytic liver mass or other mass or artifactual in the setting of significant patient motion. Chest X-Ray 03/30/18 07:02 CONCLUSION: 1. Cardiomegaly with increase in pulmonary vascularity. 2. Prominence of mediastinum. Consider PA and lateral views of the chest for further evaluation. Physical Exam: GENERAL: Well-nourished well-developed, not in acute distress SKIN: Cool and dry, no generalized rash HEAD: Atraumatic. Normocephalic. No temporal or scalp tenderness. EYES: Pupils equal round and reactive. Scleral icterus. No injection or drainage. No petechia ENT: Nothing abnormal detected NECK: Trachea midline. Supple, nontender, no meningeal signs. CARDIOVASCULAR: HS audible. RESPIRATORY: Clear to auscultation bilaterally. GASTROINTESTINAL: Abdomen soft nontender. MUSCULOSKELETAL: Extremities without clubbing, cyanosis. Left knee surgical scar intact. NEUROLOGICAL: Alert oriented x 2. Able to move her extremities. Psych cooperative IV line sites ok. Assessment and Plan - Plan Severe sepsis present on admission ESBL Proteus bacteremia likely source could be UTI MRSA bacteremia ? source. UTI complicated occurred after lithotripsy Acute metabolic encephalopathy likely secondary to sepsis possible baseline dementia Acute renal failure prerenal, sepsis Recommendations Discontinue Zosyn IV Discontinue Vanco IV Start meropenem IV Repeat blood cultures 2 Follow cultures Follow clinically
[2018-03-31] MEDS: Latanoprost 0.005% Opth Drops 2.5 ML Bottle EACH EYE SCH (21:24)
[2018-04-01 06:48] LABS: Hematocrit 29.2 % (35.0-46.0); Hemoglobin 9.5 gm/dL (11.6-15.3); Mean Corpuscular HGB Conc 32.6 % (32.0-36.0); Mean Corpuscular Hemoglobin 28.7 pg (27.0-34.0); Mean Corpuscular Volume 88.2 fL (80.0-100.0); Mean Platelet Volume 8.7 fL (7.0-11.0); Platelet Count 192 th/mm3 (150-450); Red Blood Count 3.31 mil/mm3 (4.00-5.30); Red Cell Distribution Width 13.4 % (11.6-17.2); White Blood Count 33.1 th/mm3 (4.0-11.0)
[2018-04-01 07:08] LABS: Calcium 8.6 mg/dL (8.5-10.1); Carbon Dioxide 25.2 meq/L (21.0-32.0)
[2018-04-01] MEDS: Pantoprazole Inj 40 MG Vial IV.PUSH SCH (09:03)
[2018-04-01] MEDS: Sucralfate 1 GM Tablet PO SCH (09:03)
[2018-04-01] MEDS: Furosemide 20 MG Tablet PO SCH (09:04)
[2018-04-01] MEDS: Insulin NovoLOG Aspart Correctional Sugar Inj SQ SCH ×4 (09:04→20:41)
[2018-04-01] MEDS: Ramipril 5 MG Capsule PO SCH ×2 (09:04→20:42)
[2018-04-01] MEDS: Carvedilol 6.25 MG Tablet PO SCH ×2 (09:04→20:42)
[2018-04-01] MEDS: amLODIPine 10 MG Tablet PO SCH (09:04)
--- NOTE | 2018-04-01 10:57 | P.PNFP ---
Subjective Interval history: Patient seen and examined this morning at 8:20 am, with daughter at bedside. Patient has no complaints of chest pain, shortness of breath, nausea, vomiting, abdominal pain, fever, chills, or leg pain. Updated patient and family on plan to transfer patient out of the ICU now that she is off of the venturi mask and is breathing normally on 2L nasal cannula, continuation of antibiotics for UTI and subsequent blood infection, echo findings consistent with heart failure and plan to continue heart medications. Patient and family is agreeable with plan. <Ama Hendrickson B - 04/01/18 10:57> Results - Labs Result diagrams: 04/01/18 05:48 04/01/18 05:48 <Laura Figueroa R - 04/01/18 12:10> Abnormal lab results 03/31/18 03/31/18 03/31/18 Range/Units 12:24 18:21 22:04 WBC (4.0-11.0) th/mm3 RBC (4.00-5.30) mil/mm3 Hgb (11.6-15.3) gm/dL Hct (35.0-46.0) % Sodium (136-145) meq/L Potassium (3.5-5.1) meq/L Chloride (98-107) meq/L BUN (7-18) mg/dL Creatinine (0.50-1.00) mg/dL Estimated GFR (>89) mL/min POC Glucose 147 H 132 H 155 H (68-110) mg/dl 04/01/18 04/01/18 04/01/18 Range/Units 05:48 05:48 08:51 WBC 33.1 H (4.0-11.0) th/mm3 RBC 3.31 L (4.00-5.30) mil/mm3 Hgb 9.5 L (11.6-15.3) gm/dL Hct 29.2 L (35.0-46.0) % Sodium 147 H (136-145) meq/L Potassium 3.0 L (3.5-5.1) meq/L Chloride 112 H (98-107) meq/L BUN 36 H (7-18) mg/dL Creatinine 1.05 H (0.50-1.00) mg/dL Estimated GFR 50 L (>89) mL/min POC Glucose 123 H (68-110) mg/dl Short CBC 04/01/18 Range/Units 05:48 WBC 33.1 H (4.0-11.0) th/mm3 Hgb 9.5 L (11.6-15.3) gm/dL Hct 29.2 L (35.0-46.0) % Plt Count 192 (150-450) th/mm3 BMP 04/01/18 05:48 Sodium 147 H Potassium 3.0 L Chloride 112 H Carbon Dioxide 25.2 BUN 36 H Creatinine 1.05 H Calcium 8.6 <Laura Figueroa - 04/01/18 12:10> Abnormal lab results 03/29/18 03/31/18 03/31/18 Range/Units 12:54 12:24 18:21 WBC (4.0-11.0) th/mm3 RBC (4.00-5.30) mil/mm3 Hgb (11.6-15.3) gm/dL Hct (35.0-46.0) % Sodium (136-145) meq/L Potassium (3.5-5.1) meq/L Chloride (98-107) meq/L BUN (7-18) mg/dL Creatinine (0.50-1.00) mg/dL Estimated GFR (>89) mL/min POC Glucose 147 H 132 H (68-110) mg/dl Urine Clarity Cloudy H (Clear) Urine Protein 100 H (Neg-Trace) mg/dL Urine Occult Blood Large H (Negative) Ur Leukocyte Esterase Large H (Negative) Urine WBC 171 H (0-5) /hpf 03/31/18 04/01/18 04/01/18 Range/Units 22:04 05:48 05:48 WBC 33.1 H (4.0-11.0) th/mm3 RBC 3.31 L (4.00-5.30) mil/mm3 Hgb 9.5 L (11.6-15.3) gm/dL Hct 29.2 L (35.0-46.0) % Sodium 147 H (136-145) meq/L Potassium 3.0 L (3.5-5.1) meq/L Chloride 112 H (98-107) meq/L BUN 36 H (7-18) mg/dL Creatinine 1.05 H (0.50-1.00) mg/dL Estimated GFR 50 L (>89) mL/min POC Glucose 155 H (68-110) mg/dl Urine Clarity (Clear) Urine Protein (Neg-Trace) mg/dL Urine Occult Blood (Negative) Ur Leukocyte Esterase (Negative) Urine WBC (0-5) /hpf 04/01/18 Range/Units 08:51 WBC (4.0-11.0) th/mm3 RBC (4.00-5.30) mil/mm3 Hgb (11.6-15.3) gm/dL Hct (35.0-46.0) % Sodium (136-145) meq/L Potassium (3.5-5.1) meq/L Chloride (98-107) meq/L BUN (7-18) mg/dL Creatinine (0.50-1.00) mg/dL Estimated GFR (>89) mL/min POC Glucose 123 H (68-110) mg/dl Urine Clarity (Clear) Urine Protein (Neg-Trace) mg/dL Urine Occult Blood (Negative) Ur Leukocyte Esterase (Negative) Urine WBC (0-5) /hpf Short CBC 04/01/18 Range/Units 05:48 WBC 33.1 H (4.0-11.0) th/mm3 Hgb 9.5 L (11.6-15.3) gm/dL Hct 29.2 L (35.0-46.0) % Plt Count 192 (150-450) th/mm3 BMP 04/01/18 05:48 Sodium 147 H Potassium 3.0 L Chloride 112 H Carbon Dioxide 25.2 BUN 36 H Creatinine 1.05 H Calcium 8.6 Urine 03/29/18 Range/Units 12:54 Urine Color Red (Yellw/Straw) Urine Clarity Cloudy H (Clear) Urine pH 7.0 (5.0-8.5) Ur Specific Pep 1.006 (1.002-1.035) Urine Protein 100 H (Neg-Trace) mg/dL Urine Glucose (UA) Negative (Negative) mg/dL <Ama Hendrickson - 04/01/18 10:57> Physical Exam Vital signs: Vital Signs 03/31/18 16:00 03/31/18 17:05 03/31/18 20:00 Temperature 97.9 F 98 F Pulse Rate 66 65 Respiratory Rate 16 Blood Pressure 117/57 L 128/60 Pulse Oximetry 98 98 94 L 03/31/18 20:19 04/01/18 00:00 04/01/18 04:00 Temperature 98.2 F 98 F Pulse Rate 62 60 Respiratory Rate 22 17 Blood Pressure 127/58 L 131/62 Pulse Oximetry 95 04/01/18 08:00 04/01/18 08:11 Temperature Pulse Rate 68 Respiratory Rate Blood Pressure Pulse Oximetry 96 Intake & Output 03/31/18 04/01/18 04/01/18 18:59 06:59 18:59 Intake Total 700 / 700 1350 / 1350 Output Total 500 / 500 450 / 450 Balance 200 / 200 900 / 900 Weight 87.3 kg Intake: IV 100 / 100 Merrem Inj 1,000 MG In NS Inj 100 / 100 100 ML @ 200 mls/hr IV.SIG Q12H KEESHA Rx#:[id number] Oral 600 / 600 1200 / 1200 Other 150 / 150 Output: Urine 500 / 500 450 / 450 Other: # Incontinent Voids 1 1 Date of Last Bowel Movement 03/31/18 03/31/18 03/31/18 # Incontinent Bowel Movements 1 1 <Laura Figueroa R - 04/01/18 12:10> Vital Signs 03/31/18 12:00 03/31/18 16:00 03/31/18 17:05 Temperature 98.2 F 97.9 F Pulse Rate 71 66 Respiratory Rate 23 Blood Pressure 96/46 L 117/57 L Pulse Oximetry 93 L 98 98 03/31/18 20:00 03/31/18 20:19 04/01/18 00:00 Temperature 98 F 98.2 F Pulse Rate 65 62 Respiratory Rate 16 22 Blood Pressure 128/60 127/58 L Pulse Oximetry 94 L 95 04/01/18 04:00 04/01/18 08:11 Temperature 98 F Pulse Rate 60 Respiratory Rate 17 Blood Pressure 131/62 Pulse Oximetry 96 Intake & Output 03/31/18 04/01/18 04/01/18 18:59 06:59 18:59 Intake Total 700 / 700 1350 / 1350 Output Total 500 / 500 450 / 450 Balance 200 / 200 900 / 900 Weight 87.3 kg Intake: IV 100 / 100 Merrem Inj 1,000 MG In NS Inj 100 / 100 100 ML @ 200 mls/hr IV.SIG Q12H KEESHA Rx#:[id number] Oral 600 / 600 1200 / 1200 Other 150 / 150 Output: Urine 500 / 500 450 / 450 Other: # Incontinent Voids 1 1 Date of Last Bowel Movement 03/31/18 03/31/18 # Incontinent Bowel Movements 1 1 <[facility] 04/01/18 10:57> Narrative: patient sitting up in bed talking to daughter at bedside. breathing comfortably on 2L NC <[facility] 04/01/18 10:57> - Constitutional no acute distress, cooperative <[facility] 04/01/18 10:57> - Routine HEENT Exam Head: Present: normocephalic, atraumatic <[facility] 04/01/18 10:57> Eye: Present: EOMI. Absent: scleral injection <[facility] 04/01/18 10: 57> - Routine Respiratory Exam Present: CTA bilaterally. Absent: accessory muscle use, prolonged expiratory phase, rhonchi, stridor, wheezes <[facility] 04/01/18 10:57> - Routine Cardiovascular Exam Present: RRR, S1, S2 <[facility] 04/01/18 10:57> - Routine Abdominal Exam Present: soft, normoactive bowel sounds. Absent: tenderness, mass <[facility] 04/01/18 10:57> - Routine Extremities Exam Present: pulses intact. Absent: edema, calf tenderness <[facility] 06/11 10:57> - Routine Skin Exam Present: dry, warm <[facility] 04/01/18 10:57> - Routine Neurological Exam Present: alert <[facility] 04/01/18 10:57> oriented to self, day of week and month, unable to tell us the year, believes she is in the hospital in [place] <[facility] 04/01/18 10:57> - Routine Psychiatric Exam Present: normal affect, cooperative <[facility] 04/01/18 10:57> Assessment and Plan - Assessment (1) Severe sepsis Code(s): A41.9 - Sepsis, unspecified organism; R65.20 - Severe sepsis without septic shock Status: Acute Plan: 04/01 - Correction to above -- Patient is currently on Ertapenem and Daptomycin (2) Acute UTI Code(s): N39.0 - Urinary tract infection, site not specified Status: Acute Plan: 04/01 -- Correction to above -- patient currently on Ertapenem and Daptomycin (3) Dilated cardiomyopathy Code(s): I42.0 - Dilated cardiomyopathy Status: Chronic Plan: Reading to be non-ischemic in nature -- could be in part due to the whole clinical picture. Cardiology has signed off and will be available prn during the hospital stay. Outpatient fu as above (4) Elevated troponin Code(s): R74.8 - Abnormal levels of other serum enzymes Status: Acute Plan: Reading to be secondary to CHF picture and JOHN -- non-ischemic. Troponin did peak and then trend down. This has resolved for this patient (5) Shortness of breath Code(s): R06.02 - Shortness of breath Status: Acute Plan: Reading to be secondary to mild acute CHF due to volume overload from bolus IVF with the sepsis protocol. This has now resolved (6) Creatinine elevation Code(s): R79.89 - Other specified abnormal findings of blood chemistry Status : Acute (7) Renal stone Code(s): N20.0 - Calculus of kidney Status: Acute (8) Altered mental status Code(s): R41.82 - Altered mental status, unspecified Status: Acute Plan: AMS has resolved. 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 Will need outpatient further evaluation and monitoring for this. (9) Abnormal finding on CT scan Code(s): R93.8 - Abnormal findings on diagnostic imaging of other specified body structures Status: Acute (10) Hypertension Code(s): I10 - Essential (primary) hypertension Status: Chronic (11) Hyperlipidemia Code(s): E78.5 - Hyperlipidemia, unspecified Status: Chronic (12) Diabetes mellitus Code(s): E11.9 - Type 2 diabetes mellitus without complications Status: Chronic (13) Nutrition, metabolism, and development symptoms Code(s): R63.8 - Other symptoms and signs concerning food and fluid intake Status: Acute (14) DVT prophylaxis Status: Acute Plan: not on heparin due to patient and family preference with recent GI bleed. <Laura Figueroa - 04/01/18 12:10> (1) Severe sepsis Code(s): A41.9 - Sepsis, unspecified organism; R65.20 - Severe sepsis without septic shock Status: Acute Plan: Patient meeting severe sepsis criteria on admission. Patient with fever up to 103.2 degrees as well as sinus tachycardia to 100 bpm. Likely source of infection is likely urinary in origin. Patient's initial lactic acid was elevated at 2.6. -Sepsis protocol in place on 03/29 -WBC 28.6 on 03/30 significantly increased from 2.5 on admission on 03/29. WBC 31.4 on 03/31, with 23% bands. WBC 33.1 04/01. -Blood cultures from 03/29 positive for ESBL, Proteus species and MRSA 03/31, on Vancomycin and Zosyn. -Blood cultures from 03/30 show NGTD -Urine cultures positive for Proteus mirabilis and MRSA 03/31 -ID consulted: Due to EBSL, patient changed to Meropenem 1g. Vancomycin and Zosyn discontinued. Medications: -Meropenem 1mg IV, started on 03/30 -Vancomycin daily, pharmacy consult for dosing. Stopped on 03/31 -Zosyn 2.25 mg every 6 hours (renally dose). Stopped on 03/31. -Normal saline at 100 mL/h (patient received two 1 L normal saline boluses in ED ); cautious with IV fluids as chest x-ray showed mild venous congestion. (2) Acute UTI Code(s): N39.0 - Urinary tract infection, site not specified Status: Acute Plan: Patient admitted for urosepsis s/p lithotripsy. Findings could possibly be secondary to lithotripsy, however medical team to cover with broad spectrum antibiotics until cultures are finalized. -WBC 2.5 with 96.6% neutrophils on admission. WBC increased to 28.6 on 03/30 and 31.4 on 03/31. -UA: Cloudy, 100 protein, large occult blood, large leukocyte esterase, 171 WBC -Blood cultures from 03/29 positive for ESBL, Proteus species and MRSA 03/31 -Blood cultures from 03/30 show NGTD -Urine cultures positive for Proteus mirabilis and MRSA 03/31 Medications: -Vancomycin and Zosyn as above -Normal saline at 100 mL/h (caution with IV fluids as chest x-ray showed mild venous congestion) (3) Dilated cardiomyopathy Code(s): I42.0 - Dilated cardiomyopathy Status: Chronic Plan: 2D Echo on 03/30 showed EF approximately 35-40% by echo with global hypokinesis and mild regurgitation of mitral and tricuspid valves. BNP 1752 on 03/30, decreased to 387 on 03/31. -On Lasix 20mg PO daily -Cardio consult: recommended to continue Carvedilol 12.5 mg PO BID, Ramipril 5mg PO BID and furosemide 20 mg PO daily. Will repeat echo in 3-4 months and continue to see patient in the hospital and on an outpatient basis (4) Elevated troponin Code(s): R74.8 - Abnormal levels of other serum enzymes Status: Acute Plan: Troponin on 03/30 1.66. Serial troponins showed peak at 1.84 at 12:00 on 03/30. Started treatment for ACS. 03/31 Troponin 1.52, decreased from 1.84 on 03/30. -ASA 81 mg PO daily started on 03/30 -heparin drip discontinued on 03/31 -Cardiology consulted: see above (5) Shortness of breath Code(s): R06.02 - Shortness of breath Status: Acute Plan: MINAL called at 7AM on 03/30 for increased work of breath, requiring 5-6 L on non-rebreather mask. Denied chest pain. ACS and CHF r/o started. Patient transferred to ICU. 03/31 SOB now resolved. Patient denies any chest pain. 04/01 SOB resolved. Denies chest pain or palpitations. Patient has O2 saturation of 92-94% on 2L nasal cannula. Stable for transfer from ICU to medical floor. -CXR showed signs of pulmonary edema -Troponins elevated, as seen above -BNP elevated, as seen above -started on ASA, lasix 40 mg IV bolus, as seen above -heparing drip discontinued 03/31 -Echocardiogram results as seen above -Cardiology consulted: see above (6) Creatinine elevation Code(s): R79.89 - Other specified abnormal findings of blood chemistry Status : Acute Plan: Patient presenting post lithotripsy with creatinine elevation. Patient with no recent hospitalizations per chart review and therefore no baseline could be established. -CMP: Creatinine 1.05 on 04/01, improved compared to admission -Creatinine clearance calculated to 50 mL/min on 7/9, improved compared to admission -Avoid nephrotoxic substances -Renally dose medications Medications: -Normal saline at 100 mL/h (cautious with IV fluids as chest x-ray showed mild pulmonary venous congestion) (7) Renal stone Code(s): N20.0 - Calculus of kidney Status: Acute Plan: Patient is s/p lithotripsy on 03/29/[address] Klein, Urology. Per family, procedure went well with destruction of "most of her stone." A ureter stent was placed for the next 7-10 days per family report. -CT abdomen and pelvis: Left kidney stones. Left ureteral stent in satisfactory position. No evidence of perinephric hematoma or other specific complication. Other findings as below -H/H stable -Discontinued tamsulosin on 03/29 -Monitor I/Os (8) Altered mental status Code(s): R41.82 - Altered mental status, unspecified Status: Acute Plan: Patient presenting with altered mental status. Patient was given morphine which caused an acute mental status change post procedure. Daughter reports that patient has history of low tolerance of opiate medication and has had "a reaction just like this before." Family also reports increasing short-term memory loss as well as 2 episodes of hallucinations prior to her procedure this week. Per family report, patient's mental status has improved since being transported to the hospital. -Physical exam with somnolence and mild disorientation, however patient is able to answer yes/no questioning during interview. Otherwise no acute issues. -Hold all opiate/altering medications at this time -Neuro checks every 4 hours, nursing staff to contact MD with acute change -Low threshold to proceed with further AMS evaluation with alteration including CT, MRI, carotid US, echocardiogram (9) Abnormal finding on CT scan Code(s): R93.8 - Abnormal findings on diagnostic imaging of other specified body structures Status: Acute Plan: -CT abdomen and pelvis: Left kidney stones with left ureteral stent in satisfactory position. No evidence of perinephric hematoma or other specific complication. Gallstone. Unexpected density adjacent to the right lobe of liver which could be exophytic liver mass, other mass, or artifactual in the setting of significant patient motion. -Discussed imaging with radiology who recommends repeat CT at this time due to patient having chills while in scanner disrupting imaging -Repeat CT ordered, as patient's chills have resolved and is currently in a somnolent state, plan to hold sedating patient for imaging -CT not repeated - 04/01 (10) Hypertension Code(s): I10 - Essential (primary) hypertension Status: Chronic Plan: Medications: -Continue home amlodipine, carvedilol, furosemide, and ramipril -Clonidine 0.1 mg every 6 hours as needed for blood pressure greater than 180/ 110 (11) Hyperlipidemia Code(s): E78.5 - Hyperlipidemia, unspecified Status: Chronic Plan: Medications: -Continue home atorvastatin (12) Diabetes mellitus Code(s): E11.9 - Type 2 diabetes mellitus without complications Status: Chronic Plan: Medications: -Hold home glimepiride -Sliding scale insulin per protocol (13) Nutrition, metabolism, and development symptoms Code(s): R63.8 - Other symptoms and signs concerning food and fluid intake Status: Acute Plan: -Fluids: Normal saline at 100 mL/h (monitor for overload as chest x-ray concerning for mild pulmonary venous congestion) -Diet: N.p.o for swallow evaluation, may progress to a diabetic diet as tolerated -Electrolytes: Within normal limits, continue to monitor -Prophylaxis: Calcium carbonate as needed for reflux, Zofran as needed for nausea/vomiting, Marie-Colace as needed for constipation, clonidine as needed for blood pressure greater than 180/110, Tylenol as needed for fever/pain (14) DVT prophylaxis Status: Acute Plan: -SCDs bilaterally <Ama Hendrickson - 04/01/18 10:28> - Attending Attestation The exam, history, and the medical decision-making described in the above note were completed with the assistance of the resident physician. I reviewed and agree with the findings presented. I attest that I had a [id number] encounter with the patient on the same day, and personally performed and documented my assessment and findings in the medical record. <Laura Figueroa - 04/01/18 12:10> <Ama Hendrickson B - Last Filed: 04/01/18 10:28> (8) Altered mental status Qualifiers: Altered mental status type: somnolence Qualified Code(s): R40.0 - Somnolence (10) Hypertension Qualifiers: Hypertension type: essential hypertension Qualified Code(s): I10 - Essential (primary) hypertension (11) Hyperlipidemia Qualifiers: Hyperlipidemia type: unspecified Qualified Code(s): E78.5 - Hyperlipidemia, unspecified (12) Diabetes mellitus Qualifiers: Diabetes mellitus type: type 2 Diabetes mellitus terminal gauger supervisor insulin use: unspecified penitentiary insulin use status Diabetes mellitus complication status : with unspecified complications Qualified Code(s): E11.8 - Type 2 diabetes mellitus with unspecified complications <Laura Figueroa R - Last Filed: 04/01/18 12:10> (8) Altered mental status Qualifiers: Altered mental status type: somnolence Qualified Code(s): R40.0 - Somnolence (10) Hypertension Qualifiers: Hypertension type: essential hypertension Qualified Code(s): I10 - Essential (primary) hypertension (11) Hyperlipidemia Qualifiers: Hyperlipidemia type: unspecified Qualified Code(s): E78.5 - Hyperlipidemia, unspecified (12) Diabetes mellitus Qualifiers: Diabetes mellitus type: type 2 Diabetes mellitus terminal gauger supervisor insulin use: unspecified penitentiary insulin use status Diabetes mellitus complication status : with unspecified complications Qualified Code(s): E11.8 - Type 2 diabetes mellitus with unspecified complications <Ama Hendrickson B - Last Filed: 04/01/18 10:28> (8) Altered mental status Qualifiers: Altered mental status type: somnolence Qualified Code(s): R40.0 - Somnolence (10) Hypertension Qualifiers: Hypertension type: essential hypertension Qualified Code(s): I10 - Essential (primary) hypertension (11) Hyperlipidemia Qualifiers: Hyperlipidemia type: unspecified Qualified Code(s): E78.5 - Hyperlipidemia, unspecified (12) Diabetes mellitus Qualifiers: Diabetes mellitus type: type 2 Diabetes mellitus terminal gauger supervisor insulin use: unspecified terminal gauger supervisor insulin use status Diabetes mellitus complication status : with unspecified complications Qualified Code(s): E11.8 - Type 2 diabetes mellitus with unspecified complications <Laura Figueroa R - Last Filed: 04/01/18 12:10> (8) Altered mental status Qualifiers: Altered mental status type: somnolence Qualified Code(s): R40.0 - Somnolence (10) Hypertension Qualifiers: Hypertension type: essential hypertension Qualified Code(s): I10 - Essential (primary) hypertension (11) Hyperlipidemia Qualifiers: Hyperlipidemia type: unspecified Qualified Code(s): E78.5 - Hyperlipidemia, unspecified (12) Diabetes mellitus Qualifiers: Diabetes mellitus type: type 2 Diabetes mellitus terminal gauger supervisor insulin use: unspecified terminal gauger supervisor insulin use status Diabetes mellitus complication status : with unspecified complications Qualified Code(s): E11.8 - Type 2 diabetes mellitus with unspecified complications
--- NOTE | 2018-04-01 11:25 | P.PNID ---
Subjective Remarks: Ms. Jaime is an 87-year-old female who presented to the ED status post lithotripsy with altered mental status. Patient is able to tell me that she underwent surgery on Sunday, March 29, 2018. Reportedly this was done by Dr. Klein urology as outpatient. However patient became tachycardic started having chills post procedure. She was reportedly given 1 dose of gentamicin as well as pain medication. He admits her mentation started worsening and because her daughter was unable to record a temperature she brought her to the hospital. Patient underwent a sepsis workup upon admission. Blood cultures on admission are positive for ESBL Proteus. Urine cultures are still pending. Patient's troponins were elevated and so she is started now on heparin drip. Patient received some IV fluids as part of the resuscitation. ID consulted for evaluation and management of severe sepsis and ESBL Proteus bacteremia Past medical history -Hyperlipidemia -Hypertension -History of DVT, currently not on anticoagulation due to gastric ulceration. 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 No fevers No rash No diarrhea WBC at 33 but clinically stable and being transferred to floor. 2D ECHO negative. Alert but still confused. Antibiotics: Meropenem IV Dapto IV Lines: Lines ok Past Medical History: reviewed Allergies/Adverse Reactions: Allergies No Known Allergies Allergy (Unverified 03/29/18 12:31) Objective Vital Signs 03/31/18 12:00 03/31/18 16:00 03/31/18 17:05 Temperature 98.2 F 97.9 F Pulse Rate 71 66 Respiratory Rate 23 Blood Pressure 96/46 L 117/57 L Pulse Oximetry 93 L 98 98 03/31/18 20:00 03/31/18 20:19 04/01/18 00:00 Temperature 98 F 98.2 F Pulse Rate 65 62 Respiratory Rate 16 22 Blood Pressure 128/60 127/58 L Pulse Oximetry 94 L 95 04/01/18 04:00 04/01/18 08:00 04/01/18 08:11 Temperature 98 F Pulse Rate 60 68 Respiratory Rate 17 Blood Pressure 131/62 Pulse Oximetry 96 Intake & Output 03/31/18 04/01/18 04/01/18 18:59 06:59 18:59 Intake Total 700 / 700 1350 / 1350 Output Total 500 / 500 450 / 450 Balance 200 / 200 900 / 900 Weight 87.3 kg Intake: IV 100 / 100 Merrem Inj 1,000 MG In NS Inj 100 / 100 100 ML @ 200 mls/hr IV.SIG Q12H KEESHA Rx#:[id number] Oral 600 / 600 1200 / 1200 Other 150 / 150 Output: Urine 500 / 500 450 / 450 Other: # Incontinent Voids 1 1 Date of Last Bowel Movement 03/31/18 03/31/18 03/31/18 # Incontinent Bowel Movements 1 1 03/29/18 12:47 Blood - Peripheral Aerobic Blood Culture - Final S. aureus MRSA 03/29/18 12:47 Blood - Peripheral Anaerobic Blood Culture - Final Prot. mirabilis ESBL positive 03/29/18 12:41 Blood - Peripheral Aerobic Blood Culture - Final S. aureus MRSA 03/29/18 12:41 Blood - Peripheral Anaerobic Blood Culture - Final Prot. mirabilis ESBL positive 03/30/18 18:37 Blood - Peripheral Aerobic Blood Culture - Preliminary No growth in 2 days 03/30/18 18:37 Blood - Peripheral Anaerobic Blood Culture - Preliminary No growth in 2 days 03/30/18 18:30 Blood - Peripheral Aerobic Blood Culture - Preliminary No growth in 2 days 03/30/18 18:30 Blood - Peripheral Anaerobic Blood Culture - Preliminary No growth in 2 days 03/29/18 12:54 Catheterized Urine Urine Culture - Final Prot. mirabilis ESBL positive S. aureus MRSA Lab - Hematology Results 03/31/18 04/01/18 04:26 05:48 WBC 31.4 H 33.1 H RBC 3.26 L 3.31 L Hgb 9.3 L 9.5 L Hct 28.7 L 29.2 L MCV 88.0 88.2 MCH 28.6 28.7 MCHC 32.5 32.6 RDW 13.4 13.4 Plt Count 203 192 MPV 8.3 8.7 Prelim Diff (Auto) Slide review pending Neut % (Auto) 94.3 H Lymph % (Auto) 2.5 L Whitman % (Auto) 2.1 Eos % (Auto) 0.7 Baso % (Auto) 0.4 Neut # (Auto) 29.6 H Lymph # (Auto) 0.8 L Whitman # (Auto) 0.7 Eos # (Auto) 0.2 Baso # (Auto) 0.1 WBC Differential Manual diff final Seg Neuts % (Manual) 64 Band Neuts % (Manual) 23 H Lymphocytes % (Manual) 7 L Monocytes % (Manual) 5 Eosinophils % (Manual) 1 Abs Neuts (Manual) 27.3 H Differential Comment . Toxic Granulation 1+ H Toxic Vacuolation Present H Platelet Estimate Normal Platelet Morphology Normal Lab - Chemistry Results 03/30/18 03/30/18 03/30/18 11:31 11:50 12:00 Sodium Potassium Chloride Carbon Dioxide Anion Gap BUN Creatinine Estimated GFR POC Glucose 163 H Random Glucose Lactic Acid 3.1 H Calcium Magnesium 1.8 Total Creatine Kinase 204 H CK-MB (CK-2) 2.4 CK-MB (CK-2) % 1.2 Troponin I 1.84 H* D B-Natriuretic Peptide 03/30/18 03/30/18 03/30/18 18:13 18:37 18:37 Sodium Potassium Chloride Carbon Dioxide Anion Gap BUN Creatinine Estimated GFR POC Glucose 126 H Random Glucose Lactic Acid 2.1 H Calcium Magnesium Total Creatine Kinase 148 CK-MB (CK-2) CK-MB (CK-2) % Troponin I 1.66 H* D B-Natriuretic Peptide 03/30/18 03/31/18 03/31/18 21:16 01:22 04:26 Sodium 146 H Potassium 3.5 Chloride 111 H Carbon Dioxide 25.2 Anion Gap 10 BUN 37 H Creatinine 1.53 H Estimated GFR 32 L POC Glucose 115 H Random Glucose 103 Lactic Acid 1.8 Calcium 8.2 L Magnesium Total Creatine Kinase CK-MB (CK-2) CK-MB (CK-2) % Troponin I B-Natriuretic Peptide 03/31/18 03/31/18 03/31/18 04:26 07:57 12:24 Sodium Potassium Chloride Carbon Dioxide Anion Gap BUN Creatinine Estimated GFR POC Glucose 120 H 147 H Random Glucose Lactic Acid Calcium Magnesium Total Creatine Kinase CK-MB (CK-2) CK-MB (CK-2) % Troponin I B-Natriuretic Peptide 397 H 03/31/18 03/31/18 04/01/18 18:21 22:04 05:48 Sodium 147 H Potassium 3.0 L Chloride 112 H Carbon Dioxide 25.2 Anion Gap 10 BUN 36 H Creatinine 1.05 H Estimated GFR 50 L POC Glucose 132 H 155 H Random Glucose 94 Lactic Acid Calcium 8.6 Magnesium Total Creatine Kinase CK-MB (CK-2) CK-MB (CK-2) % Troponin I B-Natriuretic Peptide 04/01/18 08:51 Sodium Potassium Chloride Carbon Dioxide Anion Gap BUN Creatinine Estimated GFR POC Glucose 123 H Random Glucose Lactic Acid Calcium Magnesium Total Creatine Kinase CK-MB (CK-2) CK-MB (CK-2) % Troponin I B-Natriuretic Peptide Imaging: ITS Impressions Abdomen/Pelvis CT 03/29/18 12:35 CONCLUSION: 1. Left kidney stones. Left ureteral stent in satisfactory position. No evidence of perinephric hematoma or other specific complication 2. Gallstone. Unexplained density adjacent to the right lobe of the liver which could be exophytic liver mass or other mass or artifactual in the setting of significant patient motion. Chest X-Ray 03/30/18 07:02 CONCLUSION: 1. Cardiomegaly with increase in pulmonary vascularity. 2. Prominence of mediastinum. Consider PA and lateral views of the chest for further evaluation. Physical Exam: GENERAL: Well-nourished well-developed, not in acute distress SKIN: Cool and dry, no generalized rash HEAD: Atraumatic. Normocephalic. No temporal or scalp tenderness. EYES: Pupils equal round and reactive. Scleral icterus. No injection or drainage. No petechia ENT: Nothing abnormal detected NECK: Trachea midline. Supple, nontender, no meningeal signs. CARDIOVASCULAR: HS audible. RESPIRATORY: Clear to auscultation bilaterally. GASTROINTESTINAL: Abdomen soft nontender. MUSCULOSKELETAL: Extremities without clubbing, cyanosis. Left knee surgical scar intact. NEUROLOGICAL: Alert oriented x 2. Able to move her extremities. Psych cooperative IV line sites ok. Assessment and Plan - Plan Severe sepsis present on admission ESBL Proteus bacteremia likely source could be UTI MRSA bacteremia ? source. UTI complicated occurred after lithotripsy Acute metabolic encephalopathy likely secondary to sepsis possible baseline dementia Acute renal failure prerenal, sepsis Recommendations DC meropenem IV Start Ertapenem IV (for ESBL bacteremia and UTI) Continue Daptomycin IV (for MRSA bacteremia and UTI) Repeat blood cultures 2 Follow cultures Follow clinically
[2018-04-01] MEDS: DAPTOmycin Inj 900 MG in Sodium Chlor 0.9% Inj 100 ML IV.SIG SCH (13:11)
[2018-04-01] MEDS: Sod Chloride 0.9% Inj 1,000 ML IV.CONT SCH ×2 (16:09→17:07)
[2018-04-01] MEDS: Latanoprost 0.005% Opth Drops 2.5 ML Bottle EACH EYE SCH (20:43)
[2018-04-02 00:17] LABS: Bilirubin,Urine Negative (Negative); Clarity,Urine Clear (Clear); Color,Urine Straw (Yellw/Straw); Glucose,Urine (UA) Negative (Negative); Leukocyte Esterase,Urine Large (Negative); Nitrite,Urine Negative (Negative); Specific Gravity,Urine 1.008 (1.002-1.035); Squamous Epithelial Cell,Urine 1 /hpf (0-5)
[2018-04-02] MEDS: Sod Chloride 0.9% Inj 1,000 ML IV.CONT SCH ×3 (05:35→23:12)
[2018-04-02 06:55] LABS: Hematocrit 31.6 % (35.0-46.0); Hemoglobin 10.4 gm/dL (11.6-15.3); Mean Corpuscular Volume 87.7 fL (80.0-100.0); Mean Platelet Volume 8.7 fL (7.0-11.0); Platelet Count 189 th/mm3 (150-450); Red Cell Distribution Width 13.3 % (11.6-17.2); White Blood Count 14.2 th/mm3 (4.0-11.0)
[2018-04-02 07:25] LABS: Calcium 7.9 mg/dL (8.5-10.1); Carbon Dioxide 26.5 meq/L (21.0-32.0)
[2018-04-02 07:50] LABS: Potassium 2.8 meq/L (3.5-5.1)
[2018-04-02] MEDS: Insulin NovoLOG Aspart Correctional Sugar Inj SQ SCH ×4 (08:22→21:57)
[2018-04-02] MEDS: Furosemide 20 MG Tablet PO SCH (08:24)
[2018-04-02] MEDS: amLODIPine 10 MG Tablet PO SCH (08:24)
[2018-04-02] MEDS: Ramipril 5 MG Capsule PO SCH ×2 (08:24→21:56)
[2018-04-02] MEDS: Sucralfate 1 GM Tablet PO SCH (08:24)
[2018-04-02] MEDS: Carvedilol 6.25 MG Tablet PO SCH ×2 (08:24→21:56)
[2018-04-02] MEDS ORDERED: Potassium Chloride 10 MEQ ER Capsule PO ONE ×2 (09:45→16:06)
[2018-04-02] MEDS: Pantoprazole Inj 40 MG Vial IV.PUSH SCH (11:44)
[2018-04-02] MEDS: DAPTOmycin Inj 900 MG in Sodium Chlor 0.9% Inj 100 ML IV.SIG SCH (13:32)
[2018-04-02 15:46] LABS: Carbon Dioxide 27.5 meq/L (21.0-32.0)
[2018-04-02 15:51] LABS: Potassium 2.9 meq/L (3.5-5.1)
[2018-04-02 16:02] LABS: Magnesium 1.5 mg/dL (1.5-2.5)
--- NOTE | 2018-04-02 20:22 | P.PNFP ---
Subjective Interval history: Patient seen and examined this morning. Patient is sitting up in bed, breathing comfortably on room air. Patient is oriented to person, day, month, state and understands that she is in the hospital, but not year, or specific hospital. Patient has no complaints of chest pain, shortness of breath , nausea, vomiting, abdominal pain, fever, chills, or leg pain. <Ama Hendrickson Dorothy - 04/02/18 20:22> Results - Labs Result diagrams: 04/02/18 05:40 04/02/18 15:00 <Shu Le - 04/02/18 20:41> Abnormal lab results 04/01/18 04/01/18 04/02/18 Range/Units 20:32 23:50 05:40 WBC 14.2 H D (4.0-11.0) th/mm3 RBC 3.60 L (4.00-5.30) mil/mm3 Hgb 10.4 L (11.6-15.3) gm/dL Hct 31.6 L (35.0-46.0) % Sodium (136-145) meq/L Potassium (3.5-5.1) meq/L Chloride (98-107) meq/L BUN (7-18) mg/dL Estimated GFR (>89) mL/min POC Glucose 132 H (68-110) mg/dl Random Glucose (74-106) mg/dL Calcium (8.5-10.1) mg/dL Urine Protein 30 H (Neg-Trace) mg/dL Urine Occult Blood Large H (Negative) Ur Leukocyte Esterase Large H (Negative) Urine RBC 114 H (0-3) /hpf Urine WBC 14 H (0-5) /hpf 04/02/18 04/02/18 04/02/18 Range/Units 05:40 08:22 11:41 WBC (4.0-11.0) th/mm3 RBC (4.00-5.30) mil/mm3 Hgb (11.6-15.3) gm/dL Hct (35.0-46.0) % Sodium 148 H (136-145) meq/L Potassium 2.8 L* (3.5-5.1) meq/L Chloride 111 H (98-107) meq/L BUN 24 H (7-18) mg/dL Estimated GFR 72 L (>89) mL/min POC Glucose 124 H 177 H (68-110) mg/dl Random Glucose 115 H (74-106) mg/dL Calcium 7.9 L (8.5-10.1) mg/dL Urine Protein (Neg-Trace) mg/dL Urine Occult Blood (Negative) Ur Leukocyte Esterase (Negative) Urine RBC (0-3) /hpf Urine WBC (0-5) /hpf 04/02/18 04/02/18 04/02/18 Range/Units 15:00 17:18 20:24 WBC (4.0-11.0) th/mm3 RBC (4.00-5.30) mil/mm3 Hgb (11.6-15.3) gm/dL Hct (35.0-46.0) % Sodium 146 H (136-145) meq/L Potassium 2.9 L* (3.5-5.1) meq/L Chloride 108 H (98-107) meq/L BUN 22 H (7-18) mg/dL Estimated GFR 64 L (>89) mL/min POC Glucose 214 H 158 H (68-110) mg/dl Random Glucose 213 H (74-106) mg/dL Calcium 8.0 L (8.5-10.1) mg/dL Urine Protein (Neg-Trace) mg/dL Urine Occult Blood (Negative) Ur Leukocyte Esterase (Negative) Urine RBC (0-3) /hpf Urine WBC (0-5) /hpf Short CBC 04/02/18 Range/Units 05:40 WBC 14.2 H D (4.0-11.0) th/mm3 Hgb 10.4 L (11.6-15.3) gm/dL Hct 31.6 L (35.0-46.0) % Plt Count 189 (150-450) th/mm3 BMP 04/02/18 04/02/18 05:40 15:00 Sodium 148 H 146 H Potassium 2.8 L* 2.9 L* Chloride 111 H 108 H Carbon Dioxide 26.5 27.5 BUN 24 H 22 H Creatinine 0.76 0.84 Calcium 7.9 L 8.0 L Urine 04/01/18 Range/Units 23:50 Urine Color Straw (Yellw/Straw) Urine Clarity Clear (Clear) Urine pH 7.0 (5.0-8.5) Ur Specific [place] 1.008 (1.002-1.035) Urine Protein 30 H (Neg-Trace) mg/dL Urine Glucose (UA) Negative (Negative) mg/dL <Shu Le - 04/02/18 20:41> Abnormal lab results 04/01/18 04/01/18 04/02/18 Range/Units 20:32 23:50 05:40 WBC 14.2 H D (4.0-11.0) th/mm3 RBC 3.60 L (4.00-5.30) mil/mm3 Hgb 10.4 L (11.6-15.3) gm/dL Hct 31.6 L (35.0-46.0) % Sodium (136-145) meq/L Potassium (3.5-5.1) meq/L Chloride (98-107) meq/L BUN (7-18) mg/dL Estimated GFR (>89) mL/min POC Glucose 132 H (68-110) mg/dl Random Glucose (74-106) mg/dL Calcium (8.5-10.1) mg/dL Urine Protein 30 H (Neg-Trace) mg/dL Urine Occult Blood Large H (Negative) Ur Leukocyte Esterase Large H (Negative) Urine RBC 114 H (0-3) /hpf Urine WBC 14 H (0-5) /hpf 04/02/18 04/02/18 04/02/18 Range/Units 05:40 08:22 11:41 WBC (4.0-11.0) th/mm3 RBC (4.00-5.30) mil/mm3 Hgb (11.6-15.3) gm/dL Hct (35.0-46.0) % Sodium 148 H (136-145) meq/L Potassium 2.8 L* (3.5-5.1) meq/L Chloride 111 H (98-107) meq/L BUN 24 H (7-18) mg/dL Estimated GFR 72 L (>89) mL/min POC Glucose 124 H 177 H (68-110) mg/dl Random Glucose 115 H (74-106) mg/dL Calcium 7.9 L (8.5-10.1) mg/dL Urine Protein (Neg-Trace) mg/dL Urine Occult Blood (Negative) Ur Leukocyte Esterase (Negative) Urine RBC (0-3) /hpf Urine WBC (0-5) /hpf 04/02/18 04/02/18 Range/Units 15:00 17:18 WBC (4.0-11.0) th/mm3 RBC (4.00-5.30) mil/mm3 Hgb (11.6-15.3) gm/dL Hct (35.0-46.0) % Sodium 146 H (136-145) meq/L Potassium 2.9 L* (3.5-5.1) meq/L Chloride 108 H (98-107) meq/L BUN 22 H (7-18) mg/dL Estimated GFR 64 L (>89) mL/min POC Glucose 214 H (68-110) mg/dl Random Glucose 213 H (74-106) mg/dL Calcium 8.0 L (8.5-10.1) mg/dL Urine Protein (Neg-Trace) mg/dL Urine Occult Blood (Negative) Ur Leukocyte Esterase (Negative) Urine RBC (0-3) /hpf Urine WBC (0-5) /hpf Short CBC 04/02/18 Range/Units 05:40 WBC 14.2 H D (4.0-11.0) th/mm3 Hgb 10.4 L (11.6-15.3) gm/dL Hct 31.6 L (35.0-46.0) % Plt Count 189 (150-450) th/mm3 BMP 04/02/18 04/02/18 05:40 15:00 Sodium 148 H 146 H Potassium 2.8 L* 2.9 L* Chloride 111 H 108 H Carbon Dioxide 26.5 27.5 BUN 24 H 22 H Creatinine 0.76 0.84 Calcium 7.9 L 8.0 L Urine 04/01/18 Range/Units 23:50 Urine Color Straw (Yellw/Straw) Urine Clarity Clear (Clear) Urine pH 7.0 (5.0-8.5) Ur Specific [place] 1.008 (1.002-1.035) Urine Protein 30 H (Neg-Trace) mg/dL Urine Glucose (UA) Negative (Negative) mg/dL <Ama eHndrickson - 04/02/18 20:22> Physical Exam Vital signs: Vital Signs 04/02/18 00:00 04/02/18 04:00 04/02/18 08:00 Temperature 97.7 F 98.1 F 97.9 F Pulse Rate 70 67 65 Respiratory Rate 20 18 20 Blood Pressure 153/69 H 155/67 H 165/72 H Pulse Oximetry 93 L 95 94 L 04/02/18 10:54 04/02/18 12:00 04/02/18 16:00 Temperature 97.9 F 97.8 F Pulse Rate 72 71 Respiratory Rate 20 20 Blood Pressure 141/65 H 143/68 H Pulse Oximetry 95 95 98 Intake & Output 04/02/18 04/02/18 04/03/18 06:59 18:59 06:59 Intake Total 1240 / 1240 920 / 920 Output Total 450 / 450 800 / 800 Balance 790 / 790 120 / 120 Weight 85.9 kg Intake: IV 1000 / 1000 200 / 200 NS Inj 1,000 ML @ 100 mls/hr IV 1000 / 1000 .CONT .Q10H KEESHA Rx#:[id number] Cubicin Inj 900 MG In NS Inj 100 / 100 100 ML @ 200 mls/hr IV.SIG Q24H KEESHA Rx#:[id number] INVanz Inj 1,000 MG In NS Inj 100 / 100 100 ML @ 200 mls/hr IV.SIG Q24H KEESHA Rx#:[id number] Oral 240 / 240 720 / 720 Output: Urine 450 / 450 800 / 800 Other: # Voids 1 # Bowel Movements 0 <Shu Le - 04/02/18 20:41> Vital Signs 04/01/18 20:00 04/02/18 00:00 04/02/18 04:00 Temperature 98 F 97.7 F 98.1 F Pulse Rate 77 70 67 Respiratory Rate 20 20 18 Blood Pressure 145/97 H 153/69 H 155/67 H Pulse Oximetry 95 93 L 95 04/02/18 08:00 04/02/18 10:54 04/02/18 12:00 Temperature 97.9 F 97.9 F Pulse Rate 65 72 Respiratory Rate 20 20 Blood Pressure 165/72 H 141/65 H Pulse Oximetry 94 L 95 95 04/02/18 16:00 Temperature 97.8 F Pulse Rate 71 Respiratory Rate 20 Blood Pressure 143/68 H Pulse Oximetry 98 Intake & Output 04/02/18 04/02/18 04/03/18 06:59 18:59 06:59 Intake Total 1240 / 1240 920 / 920 Output Total 450 / 450 800 / 800 Balance 790 / 790 120 / 120 Weight 85.9 kg Intake: IV 1000 / 1000 200 / 200 NS Inj 1,000 ML @ 100 mls/hr IV 1000 / 1000 .CONT .Q10H KEESHA Rx#:[id number] Cubicin Inj 900 MG In NS Inj 100 / 100 100 ML @ 200 mls/hr IV.SIG Q24H KEESHA Rx#:[id number] INVanz Inj 1,000 MG In NS Inj 100 / 100 100 ML @ 200 mls/hr IV.SIG Q24H KEESHA Rx#:[id number] Oral 240 / 240 720 / 720 Output: Urine 450 / 450 800 / 800 Other: # Voids 1 # Bowel Movements 0 <[facility] 04/02/18 20:22> - Constitutional no acute distress, cooperative <[facility] 04/02/18 20:22> - Routine HEENT Exam Head: Present: normocephalic, atraumatic <[facility] 04/02/18 20:22> Eye: Present: EOMI. Absent: scleral injection <[facility] 04/02/18 20: 22> ENT: Present: mucous membranes moist <[facility] 04/02/18 20:22> - Routine Respiratory Exam Present: CTA bilaterally. Absent: accessory muscle use, prolonged expiratory phase, wheezes, crackles <[facility] 04/02/18 20:22> - Routine Cardiovascular Exam Present: RRR, S1, S2 <[facility] 04/02/18 20:22> - Routine Abdominal Exam Present: soft, normoactive bowel sounds. Absent: tenderness, mass <[facility] 04/02/18 20:22> - Routine Extremities Exam Present: pulses intact. Absent: edema, calf tenderness <[facility] 07/11 20:22> - Routine Skin Exam Present: dry, warm <[facility] 04/02/18 20:22> - Routine Neurological Exam Present: alert <[facility] 04/02/18 20:22> oriented to person, day, month and knows that she is in the hospital <[facility] 04/02/18 20:22> - Routine Psychiatric Exam Present: normal affect, cooperative <Ama Hendrickson - 04/02/18 20:22> Assessment and Plan - Assessment (1) Hypokalemia Code(s): E87.6 - Hypokalemia Status: Acute (2) Severe sepsis Code(s): A41.9 - Sepsis, unspecified organism; R65.20 - Severe sepsis without septic shock Status: Acute (3) Acute UTI Code(s): N39.0 - Urinary tract infection, site not specified Status: Acute (4) Dilated cardiomyopathy Code(s): I42.0 - Dilated cardiomyopathy Status: Chronic (5) Elevated troponin Code(s): R74.8 - Abnormal levels of other serum enzymes Status: Resolved (6) Creatinine elevation Code(s): R79.89 - Other specified abnormal findings of blood chemistry Status : Resolved (7) Shortness of breath Code(s): R06.02 - Shortness of breath Status: Resolved (8) Altered mental status Code(s): R41.82 - Altered mental status, unspecified Status: Acute (9) Hypertension Code(s): I10 - Essential (primary) hypertension Status: Chronic (10) Hyperlipidemia Code(s): E78.5 - Hyperlipidemia, unspecified Status: Chronic (11) Diabetes mellitus Code(s): E11.9 - Type 2 diabetes mellitus without complications Status: Chronic (12) Nutrition, metabolism, and development symptoms Code(s): R63.8 - Other symptoms and signs concerning food and fluid intake Status: Acute (13) DVT prophylaxis Status: Acute <Shu Le - 04/02/18 20:41> (1) Hypokalemia Code(s): E87.6 - Hypokalemia Status: Acute Plan: Patient's potassium level 2.8 on 04/02. Patient currently asymptomatic. Could be due to daily furosemide. -Will give Potassium Chloride 40 mEq PO and re-check potassium level. -Will continue to replete as needed (2) Severe sepsis Code(s): A41.9 - Sepsis, unspecified organism; R65.20 - Severe sepsis without septic shock Status: Acute Plan: Patient met severe sepsis on admission due to fever of 102.6F, heart rate of 100 , WBC 2.5, lactic acid 2.6, following outpatient laser lithotripsy with AMS on . Urine culture positive for ESBL, MRSA and proteus mirabilis. ID consulted and originally placed on Meropenem. Despite antibiotic treatment WBC continued to rise, patient then switched to Ertapenem & Daptomycin. -Day 3 of Daptomycin 900mg IV per ID -Day 3 of Ertapenem 1g IV per ID -BCx x2 03/30: NGTD -UCx 04/01: pending (3) Acute UTI Code(s): N39.0 - Urinary tract infection, site not specified Status: Acute Plan: Patient with urine culture positive for ESBL, MRSA and proteus mirabilis. -See severe sepsis plan above (4) Dilated cardiomyopathy Code(s): I42.0 - Dilated cardiomyopathy Status: Chronic Plan: 2D Echo on 03/30 showed EF approximately 35-40% by echo with global hypokinesis and mild regurgitation of mitral and tricuspid valves. BNP 1752 on 03/30, decreased to 387 on 03/31. -On Lasix 20mg PO daily -Cardio consult: recommended to continue Carvedilol 12.5 mg PO BID, Ramipril 5mg PO BID and furosemide 20 mg PO daily. Will repeat echo in 3-4 months and continue to see patient in the hospital and on an outpatient basis (5) Elevated troponin Code(s): R74.8 - Abnormal levels of other serum enzymes Status: Resolved Plan: Now resolved. [place] to be secondary to CHF picture and JOHN -- non-ischemic. Troponin did peak and then trend down. This has resolved for this patient (6) Creatinine elevation Code(s): R79.89 - Other specified abnormal findings of blood chemistry Status : Resolved Plan: Patient presented post lithotripsy with creatinine elevation, much improved compared to admission. -Will avoid nephrotoxic substances and r enally dose medications (7) Shortness of breath Code(s): R06.02 - Shortness of breath Status: Resolved Plan: HALICAT called on 03/30 due to shortness of breath. [place] to be secondary to mild acute CHF due to volume overload from bolus IVF with the sepsis protocol, due to elevated BNP and echocardiogram showing global hypokinesis with dilated left ventricle and valvular regurgitation. CXR and ACS rule out were also negative. Her shortness of breath is now completely resolved. (8) Altered mental status Code(s): R41.82 - Altered mental status, unspecified Status: Acute Plan: AMS has resolved. 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 Will need outpatient further evaluation and monitoring for this. (9) Hypertension Code(s): I10 - Essential (primary) hypertension Status: Chronic Plan: Medications: -Continue home amlodipine, carvedilol, furosemide, and ramipril -Clonidine 0.1 mg every 6 hours as needed for blood pressure greater than 180/ 110 (10) Hyperlipidemia Code(s): E78.5 - Hyperlipidemia, unspecified Status: Chronic Plan: Medications: -Continue home atorvastatin (11) Diabetes mellitus Code(s): E11.9 - Type 2 diabetes mellitus without complications Status: Chronic Plan: Medications: -Hold home glimepiride -Sliding scale insulin per protocol (12) Nutrition, metabolism, and development symptoms Code(s): R63.8 - Other symptoms and signs concerning food and fluid intake Status: Acute Plan: -Fluids: Normal saline at 100 mL/h (monitor for overload as chest x-ray concerning for mild pulmonary venous congestion) -Diet: speech therapy cleared patient for this liquids and soft mechanical diet. -Electrolytes: See hypokalemia plan above -Prophylaxis: Calcium carbonate as needed for reflux, Zofran as needed for nausea/vomiting, Marie-Colace as needed for constipation, clonidine as needed for blood pressure greater than 180/110, Tylenol as needed for fever/pain (13) DVT prophylaxis Status: Acute Plan: Patient not on heparin due to patient and family preference with recent GI bleed. Bilateral SCDs ordered. <Ama Hendrickson - 04/02/18 19:42> - Attending Attestation Patient seen and examined today, discussed with Blu Espinal and Emeka. I agree with assessment and management as documented and discussed with me. Pt without complaints. She ate breakfast this morning without difficulty. She is accompanied by her and son, and all of their questions answered to the best of my abilities. Appreciate ID. Continue antibiotics as ordered. <Shu Le - 04/02/18 20:41> <Ama Hendrickson - Last Filed: 04/02/18 19:42> (8) Altered mental status Qualifiers: Altered mental status type: somnolence Qualified Code(s): R40.0 - Somnolence (9) Hypertension Qualifiers: Hypertension type: essential hypertension Qualified Code(s): I10 - Essential (primary) hypertension (10) Hyperlipidemia Qualifiers: Hyperlipidemia type: unspecified Qualified Code(s): E78.5 - Hyperlipidemia, unspecified (11) Diabetes mellitus Qualifiers: Diabetes mellitus type: type 2 Diabetes mellitus long-term insulin use: unspecified long-term insulin use status Diabetes mellitus complication status : with unspecified complications Qualified Code(s): E11.8 - Type 2 diabetes mellitus with unspecified complications <Shu Le - Last Filed: 04/02/18 20:41> (8) Altered mental status Qualifiers: Altered mental status type: somnolence Qualified Code(s): R40.0 - Somnolence (9) Hypertension Qualifiers: Hypertension type: essential hypertension Qualified Code(s): I10 - Essential (primary) hypertension (10) Hyperlipidemia Qualifiers: Hyperlipidemia type: unspecified Qualified Code(s): E78.5 - Hyperlipidemia, unspecified (11) Diabetes mellitus Qualifiers: Diabetes mellitus type: type 2 Diabetes mellitus assistant terminal manager insulin use: unspecified assistant terminal manager insulin use status Diabetes mellitus complication status : with unspecified complications Qualified Code(s): E11.8 - Type 2 diabetes mellitus with unspecified complications <Ama Hendrickson - Last Filed: 04/02/18 19:42> (8) Altered mental status Qualifiers: Altered mental status type: somnolence Qualified Code(s): R40.0 - Somnolence (9) Hypertension Qualifiers: Hypertension type: essential hypertension Qualified Code(s): I10 - Essential (primary) hypertension (10) Hyperlipidemia Qualifiers: Hyperlipidemia type: unspecified Qualified Code(s): E78.5 - Hyperlipidemia, unspecified (11) Diabetes mellitus Qualifiers: Diabetes mellitus type: type 2 Diabetes mellitus long-term insulin use: unspecified long-term insulin use status Diabetes mellitus complication status : with unspecified complications Qualified Code(s): E11.8 - Type 2 diabetes mellitus with unspecified complications <Shu Le - Last Filed: 04/02/18 20:41> (8) Altered mental status Qualifiers: Altered mental status type: somnolence Qualified Code(s): R40.0 - Somnolence (9) Hypertension Qualifiers: Hypertension type: essential hypertension Qualified Code(s): I10 - Essential (primary) hypertension (10) Hyperlipidemia Qualifiers: Hyperlipidemia type: unspecified Qualified Code(s): E78.5 - Hyperlipidemia, unspecified (11) Diabetes mellitus Qualifiers: Diabetes mellitus type: type 2 Diabetes mellitus long-term insulin use: unspecified assistant terminal manager insulin use status Diabetes mellitus complication status : with unspecified complications Qualified Code(s): E11.8 - Type 2 diabetes mellitus with unspecified complications
[2018-04-02 22:47] LABS: Calcium 8.5 mg/dL (8.5-10.1); Carbon Dioxide 27.5 meq/L (21.0-32.0); Magnesium 1.6 mg/dL (1.5-2.5); Potassium 3.2 meq/L (3.5-5.1)
[2018-04-02] MEDS: Latanoprost 0.005% Opth Drops 2.5 ML Bottle EACH EYE SCH (23:13)
[2018-04-03 05:54] LABS: Hematocrit 30.9 % (35.0-46.0); Hemoglobin 10.4 gm/dL (11.6-15.3); Mean Corpuscular HGB Conc 33.8 % (32.0-36.0); Mean Corpuscular Hemoglobin 29.7 pg (27.0-34.0); Mean Corpuscular Volume 87.9 fL (80.0-100.0); Mean Platelet Volume 9.4 fL (7.0-11.0); Platelet Count 192 th/mm3 (150-450); Red Blood Count 3.51 mil/mm3 (4.00-5.30); Red Cell Distribution Width 13.3 % (11.6-17.2); White Blood Count 7.7 th/mm3 (4.0-11.0)
[2018-04-03 06:16] LABS: Calcium 8.5 mg/dL (8.5-10.1); Carbon Dioxide 25.8 meq/L (21.0-32.0); Potassium 3.9 meq/L (3.5-5.1)
[2018-04-03] MEDS: Sod Chloride 0.9% Inj 1,000 ML IV.CONT SCH (09:11)
[2018-04-03] MEDS: Sucralfate 1 GM Tablet PO SCH (09:12)
[2018-04-03] MEDS: Furosemide 20 MG Tablet PO SCH (09:12)
[2018-04-03] MEDS: Insulin NovoLOG Aspart Correctional Sugar Inj SQ SCH ×4 (09:13→21:45)
[2018-04-03] MEDS: amLODIPine 10 MG Tablet PO SCH (09:13)
[2018-04-03] MEDS: Carvedilol 6.25 MG Tablet PO SCH ×2 (09:13→21:43)
[2018-04-03] MEDS: Pantoprazole Inj 40 MG Vial IV.PUSH SCH (09:13)
[2018-04-03] MEDS: Ramipril 5 MG Capsule PO SCH ×2 (09:13→21:43)
--- NOTE | 2018-04-03 11:11 | P.PNFP ---
Subjective Interval history: Patient seen and examined this morning. She states that she is doing well. No chest pain, shortness of breath, no fevers or chills, no abdominal pain. A rash was noted on her right forehead and chin. Yesterday she stated that she had the rash on her forehead for a month. Today she states that the rash on her chin is new. No burning, no itching, painless. <Idania Espinal - 04/03/18 16:01> Results - Labs Result diagrams: 04/03/18 05:00 04/03/18 05:00 <Shu Le - 04/03/18 20:00> Abnormal lab results 04/02/18 04/02/18 04/03/18 Range/Units 20:24 22:05 05:00 RBC 3.51 L (4.00-5.30) mil/mm3 Hgb 10.4 L (11.6-15.3) gm/dL Hct 30.9 L (35.0-46.0) % Sodium 146 H (136-145) meq/L Potassium 3.2 L (3.5-5.1) meq/L Chloride 109 H (98-107) meq/L BUN 21 H (7-18) mg/dL Estimated GFR 67 L (>89) mL/min POC Glucose 158 H (68-110) mg/dl Random Glucose 139 H (74-106) mg/dL 04/03/18 04/03/18 04/03/18 Range/Units 05:00 08:05 12:24 RBC (4.00-5.30) mil/mm3 Hgb (11.6-15.3) gm/dL Hct (35.0-46.0) % Sodium 147 H (136-145) meq/L Potassium (3.5-5.1) meq/L Chloride 112 H (98-107) meq/L BUN 22 H (7-18) mg/dL Estimated GFR 68 L (>89) mL/min POC Glucose 140 H 193 H (68-110) mg/dl Random Glucose 119 H (74-106) mg/dL 04/03/18 Range/Units 17:24 RBC (4.00-5.30) mil/mm3 Hgb (11.6-15.3) gm/dL Hct (35.0-46.0) % Sodium (136-145) meq/L Potassium (3.5-5.1) meq/L Chloride (98-107) meq/L BUN (7-18) mg/dL Estimated GFR (>89) mL/min POC Glucose 139 H (68-110) mg/dl Random Glucose (74-106) mg/dL Short CBC 04/03/18 Range/Units 05:00 WBC 7.7 (4.0-11.0) th/mm3 Hgb 10.4 L (11.6-15.3) gm/dL Hct 30.9 L (35.0-46.0) % Plt Count 192 (150-450) th/mm3 BMP 04/02/18 04/03/18 22:05 05:00 Sodium 146 H 147 H Potassium 3.2 L 3.9 Chloride 109 H 112 H Carbon Dioxide 27.5 25.8 BUN 21 H 22 H Creatinine 0.81 0.80 Calcium 8.5 8.5 <Shu Le - 04/03/18 20:00> Abnormal lab results 04/02/18 04/02/18 04/02/18 Range/Units 11:41 15:00 17:18 RBC (4.00-5.30) mil/mm3 Hgb (11.6-15.3) gm/dL Hct (35.0-46.0) % Sodium 146 H (136-145) meq/L Potassium 2.9 L* (3.5-5.1) meq/L Chloride 108 H (98-107) meq/L BUN 22 H (7-18) mg/dL Estimated GFR 64 L (>89) mL/min POC Glucose 177 H 214 H (68-110) mg/dl Random Glucose 213 H (74-106) mg/dL Calcium 8.0 L (8.5-10.1) mg/dL 04/02/18 04/02/18 04/03/18 Range/Units 20:24 22:05 05:00 RBC 3.51 L (4.00-5.30) mil/mm3 Hgb 10.4 L (11.6-15.3) gm/dL Hct 30.9 L (35.0-46.0) % Sodium 146 H (136-145) meq/L Potassium 3.2 L (3.5-5.1) meq/L Chloride 109 H (98-107) meq/L BUN 21 H (7-18) mg/dL Estimated GFR 67 L (>89) mL/min POC Glucose 158 H (68-110) mg/dl Random Glucose 139 H (74-106) mg/dL Calcium (8.5-10.1) mg/dL 04/03/18 04/03/18 Range/Units 05:00 08:05 RBC (4.00-5.30) mil/mm3 Hgb (11.6-15.3) gm/dL Hct (35.0-46.0) % Sodium 147 H (136-145) meq/L Potassium (3.5-5.1) meq/L Chloride 112 H (98-107) meq/L BUN 22 H (7-18) mg/dL Estimated GFR 68 L (>89) mL/min POC Glucose 140 H (68-110) mg/dl Random Glucose 119 H (74-106) mg/dL Calcium (8.5-10.1) mg/dL Short CBC 04/03/18 Range/Units 05:00 WBC 7.7 (4.0-11.0) th/mm3 Hgb 10.4 L (11.6-15.3) gm/dL Hct 30.9 L (35.0-46.0) % Plt Count 192 (150-450) th/mm3 BMP 04/02/18 04/02/18 04/03/18 15:00 22:05 05:00 Sodium 146 H 146 H 147 H Potassium 2.9 L* 3.2 L 3.9 Chloride 108 H 109 H 112 H Carbon Dioxide 27.5 27.5 25.8 BUN 22 H 21 H 22 H Creatinine 0.84 0.81 0.80 Calcium 8.0 L 8.5 8.5 <Idania Espinal G - 04/03/18 11:11> Physical Exam Vital signs: Vital Signs 04/02/18 20:00 04/03/18 00:00 04/03/18 04:00 Temperature 98.2 F 98.1 F 98.0 F Pulse Rate 50 L 55 L 65 Respiratory Rate 16 14 14 Blood Pressure 140/64 120/70 122/57 L Pulse Oximetry 98 96 95 04/03/18 08:00 04/03/18 12:00 04/03/18 18:00 Temperature 97.7 F 97.9 F 98.2 F Pulse Rate 65 54 L 91 H Respiratory Rate 18 17 17 Blood Pressure 166/74 H 145/65 H 132/72 Pulse Oximetry 95 95 96 Intake & Output 04/03/18 04/03/18 04/04/18 06:59 18:59 06:59 Intake Total 1000 / 1000 1720 / 1720 Balance 1000 / 1000 1720 / 1720 Weight 87 kg 87 kg Intake: IV 1000 / 1000 1720 / 1720 NS Inj 1,000 ML @ 100 mls/hr IV 1000 / 1000 1620 / 1620 .CONT .Q10H KEESHA Rx#:[id number] Cubicin Inj 900 MG In NS Inj 100 / 100 100 ML @ 200 mls/hr IV.SIG Q24H KEESHA Rx#:[id number] <Shu Le - 04/03/18 20:00> Vital Signs 04/02/18 12:00 04/02/18 16:00 04/02/18 20:00 Temperature 97.9 F 97.8 F 98.2 F Pulse Rate 72 71 50 L Respiratory Rate 20 20 16 Blood Pressure 141/65 H 143/68 H 140/64 Pulse Oximetry 95 98 98 04/03/18 00:00 04/03/18 04:00 04/03/18 08:00 Temperature 98.1 F 98.0 F 97.7 F Pulse Rate 55 L 65 65 Respiratory Rate 14 14 18 Blood Pressure 120/70 122/57 L 166/74 H Pulse Oximetry 96 95 95 Intake & Output 04/02/18 04/03/18 04/03/18 18:59 06:59 18:59 Intake Total 1920 / 1920 1000 / 1000 1000 / 1000 Output Total 800 / 800 Balance 1120 / 1120 1000 / 1000 1000 / 1000 Weight 87 kg Intake: IV 1200 / 1200 1000 / 1000 1000 / 1000 NS Inj 1,000 ML @ 100 mls/hr IV 1000 / 1000 1000 / 1000 1000 / 1000 .CONT .Q10H KEESHA Rx#:[id number] Cubicin Inj 900 MG In NS Inj 100 / 100 100 ML @ 200 mls/hr IV.SIG Q24H KEESHA Rx#:[id number] INVanz Inj 1,000 MG In NS Inj 100 / 100 100 ML @ 200 mls/hr IV.SIG Q24H KEESHA Rx#:[id number] Oral 720 / 720 Output: Urine 800 / 800 <Idania Espinal - 04/03/18 11:11> Narrative: GENERAL: Elderly white female sitting up in bed, in no acute distress SKIN: Warm and dry. Vesicular rash on right forehead in V1 dermatome. Vesicular lesions also on left side of lower lip and chin. HEAD: Atraumatic. Normocephalic. EYES: No scleral icterus. No injection or drainage. ENT: No nasal bleeding or discharge. NECK: Trachea midline. No JVD. CARDIOVASCULAR: Regular rate and rhythm. RESPIRATORY: No accessory muscle use. Clear to auscultation. Breath sounds equal bilaterally. GASTROINTESTINAL: Abdomen soft, non-tender, nondistended. MUSCULOSKELETAL: Extremities without clubbing, cyanosis, or edema. No obvious deformities. NEUROLOGICAL: Awake and alert. No obvious cranial nerve deficits. Motor grossly within normal limits. Five out of 5 muscle strength in the arms and legs. Normal speech. <Idania Espinal - 04/03/18 16:01> Assessment and Plan - Assessment (1) Shingles rash Code(s): B02.9 - Zoster without complications Status: Acute (2) Hypokalemia Code(s): E87.6 - Hypokalemia Status: Resolved (3) Severe sepsis Code(s): A41.9 - Sepsis, unspecified organism; R65.20 - Severe sepsis without septic shock Status: Acute (4) Acute UTI Code(s): N39.0 - Urinary tract infection, site not specified Status: Acute (5) Dilated cardiomyopathy Code(s): I42.0 - Dilated cardiomyopathy Status: Chronic (6) Creatinine elevation Code(s): R79.89 - Other specified abnormal findings of blood chemistry Status : Resolved (7) Altered mental status Code(s): R41.82 - Altered mental status, unspecified Status: Resolved (8) Hypertension Code(s): I10 - Essential (primary) hypertension Status: Chronic (9) Hyperlipidemia Code(s): E78.5 - Hyperlipidemia, unspecified Status: Chronic (10) Diabetes mellitus Code(s): E11.9 - Type 2 diabetes mellitus without complications Status: Chronic (11) Nutrition, metabolism, and development symptoms Code(s): R63.8 - Other symptoms and signs concerning food and fluid intake Status: Acute (12) DVT prophylaxis Status: Acute <Shu Le - 04/03/18 20:00> (1) Shingles rash Code(s): B02.9 - Zoster without complications Status: Acute Plan: Vesicular rash on right forehead in V1 dermatome. Vesicular lesions also on chin and left lower lip. Patient denies any pain/burning/itching. Due to rash appearing within 72 hour time window will treat. -Valacyclovir 1000 mg 3 times daily (2) Hypokalemia Code(s): E87.6 - Hypokalemia Status: Resolved Plan: Patient's potassium level 2.8 on 04/02. Could be due to daily furosemide. Has corrected today. -Will continue to monitor and replete as needed (3) Severe sepsis Code(s): A41.9 - Sepsis, unspecified organism; R65.20 - Severe sepsis without septic shock Status: Acute Plan: Patient met severe sepsis on admission due to fever of 102.6F, heart rate of 100 , WBC 2.5, lactic acid 2.6, following outpatient laser lithotripsy with AMS on . Urine culture positive for ESBL, MRSA and proteus mirabilis. ID consulted and originally placed on Meropenem. Despite antibiotic treatment WBC continued to rise, patient then switched to Ertapenem & Daptomycin. Patient is now stable. Beginning discharge planning. Will determine next steps whether inpatient versus outpatient via PICC line treatment with case management's assistance. -Day 4 of Daptomycin 900mg IV per ID (03/31- ) -Day 3 of Ertapenem 1g IV per ID (04/01- ) -BCx x2 03/30: NGTD -UCx 04/01: Luz Elena albicans (4) Acute UTI Code(s): N39.0 - Urinary tract infection, site not specified Status: Acute Plan: Patient with urine culture positive for ESBL, MRSA and proteus mirabilis. -See severe sepsis plan above (5) Dilated cardiomyopathy Code(s): I42.0 - Dilated cardiomyopathy Status: Chronic Plan: 2D Echo on 03/30 showed EF approximately 35-40% by echo with global hypokinesis and mild regurgitation of mitral and tricuspid valves. BNP 1752 on 03/30, decreased to 387 on 03/31. -On Lasix 20mg PO daily -Cardio consult: recommended to continue Carvedilol 12.5 mg PO BID, Ramipril 5mg PO BID and furosemide 20 mg PO daily. Will repeat echo in 3-4 months and will continue to see patient in the hospital and on an outpatient basis (6) Creatinine elevation Code(s): R79.89 - Other specified abnormal findings of blood chemistry Status : Resolved Plan: Patient presented post lithotripsy with creatinine elevation, has now resolved (7) Altered mental status Code(s): R41.82 - Altered mental status, unspecified Status: Resolved Plan: AMS has resolved. 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 Will need outpatient further evaluation and monitoring for this. (8) Hypertension Code(s): I10 - Essential (primary) hypertension Status: Chronic Plan: Medications: -Continue home amlodipine, carvedilol, furosemide, and ramipril -Clonidine 0.1 mg every 6 hours as needed for blood pressure greater than 180/ 110 (9) Hyperlipidemia Code(s): E78.5 - Hyperlipidemia, unspecified Status: Chronic Plan: Medications: -Continue home atorvastatin (10) Diabetes mellitus Code(s): E11.9 - Type 2 diabetes mellitus without complications Status: Chronic Plan: Medications: -Hold home glimepiride -Sliding scale insulin per protocol (11) Nutrition, metabolism, and development symptoms Code(s): R63.8 - Other symptoms and signs concerning food and fluid intake Status: Acute Plan: -Fluids: tolerating po -Diet: speech therapy cleared patient for thin liquids and soft mechanical diet. -Electrolytes: See hypokalemia plan above -Prophylaxis: Calcium carbonate as needed for reflux, Zofran as needed for nausea/vomiting, Marie-Colace as needed for constipation, clonidine as needed for blood pressure greater than 180/110, Tylenol as needed for fever/pain (12) DVT prophylaxis Status: Acute Plan: Patient not on heparin due to patient and family preference with recent GI bleed. Bilateral SCDs ordered. <Idania Espinal 04/03/18 16:02> - Assessment and Plan Discussed Condition With: Dr. Le <Idania Espinal 04/03/18 16:01> Discharge Planning: Case management assisting with [facility] <Idania Espinal 04/03/18 16:01> - Attending Attestation Patient seen and examined today, discussed with resident team. I agree with assessment and management as documented and discussed with me. Pt without complaints. Son at bedside, who is concerned about a new rash on her forehead. Start valacyclovir for shingles. Will work toward discharge / home health with IV antibiotics. <Shu Le - 04/03/18 20:00> <Idania Espinal - Last Filed: 04/03/18 16:02> (1) Shingles rash Qualifiers: Herpes zoster complications: without complications Qualified Code(s): B02.9 - Zoster without complications (7) Altered mental status Qualifiers: Altered mental status type: somnolence Qualified Code(s): R40.0 - Somnolence (8) Hypertension Qualifiers: Hypertension type: essential hypertension Qualified Code(s): I10 - Essential (primary) hypertension (9) Hyperlipidemia Qualifiers: Hyperlipidemia type: unspecified Qualified Code(s): E78.5 - Hyperlipidemia, unspecified (10) Diabetes mellitus Qualifiers: Diabetes mellitus type: type 2 Diabetes mellitus prison insulin use: unspecified prison insulin use status Diabetes mellitus complication status : with unspecified complications Qualified Code(s): E11.8 - Type 2 diabetes mellitus with unspecified complications <Shu Le - Last Filed: 04/03/18 20:00> (1) Shingles rash Qualifiers: Herpes zoster complications: without complications Qualified Code(s): B02.9 - Zoster without complications (7) Altered mental status Qualifiers: Altered mental status type: somnolence Qualified Code(s): R40.0 - Somnolence (8) Hypertension Qualifiers: Hypertension type: essential hypertension Qualified Code(s): I10 - Essential (primary) hypertension (9) Hyperlipidemia Qualifiers: Hyperlipidemia type: unspecified Qualified Code(s): E78.5 - Hyperlipidemia, unspecified (10) Diabetes mellitus Qualifiers: Diabetes mellitus type: type 2 Diabetes mellitus mechanical maintenance insulin use: unspecified prison insulin use status Diabetes mellitus complication status : with unspecified complications Qualified Code(s): E11.8 - Type 2 diabetes mellitus with unspecified complications <Idania Espinal - Last Filed: 04/03/18 16:02> (1) Shingles rash Qualifiers: Herpes zoster complications: without complications Qualified Code(s): B02.9 - Zoster without complications (7) Altered mental status Qualifiers: Altered mental status type: somnolence Qualified Code(s): R40.0 - Somnolence (8) Hypertension Qualifiers: Hypertension type: essential hypertension Qualified Code(s): I10 - Essential (primary) hypertension (9) Hyperlipidemia Qualifiers: Hyperlipidemia type: unspecified Qualified Code(s): E78.5 - Hyperlipidemia, unspecified (10) Diabetes mellitus Qualifiers: Diabetes mellitus type: type 2 Diabetes mellitus prison insulin use: unspecified mechanical maintenance insulin use status Diabetes mellitus complication status : with unspecified complications Qualified Code(s): E11.8 - Type 2 diabetes mellitus with unspecified complications <Shu Le - Last Filed: 04/03/18 20:00> (1) Shingles rash Qualifiers: Herpes zoster complications: without complications Qualified Code(s): B02.9 - Zoster without complications (7) Altered mental status Qualifiers: Altered mental status type: somnolence Qualified Code(s): R40.0 - Somnolence (8) Hypertension Qualifiers: Hypertension type: essential hypertension Qualified Code(s): I10 - Essential (primary) hypertension (9) Hyperlipidemia Qualifiers: Hyperlipidemia type: unspecified Qualified Code(s): E78.5 - Hyperlipidemia, unspecified (10) Diabetes mellitus Qualifiers: Diabetes mellitus type: type 2 Diabetes mellitus prison insulin use: unspecified mechanical maintenance insulin use status Diabetes mellitus complication status : with unspecified complications Qualified Code(s): E11.8 - Type 2 diabetes mellitus with unspecified complications
[2018-04-03] MEDS: DAPTOmycin Inj 900 MG in Sodium Chlor 0.9% Inj 100 ML IV.SIG SCH (14:42)
--- NOTE | 2018-04-03 15:29 | P.DCO ---
- Physical Therapy Order: Evaluate and treat - Home Health Nursing Order: Medical education, Signs/symptoms of disease process, IV medication administration - Case Management Consult Yes - Certification I have seen patient Mellissa Jaime on 04/03/18. My clinical findings support the need for the requested home health care services because: Limited mobility due to disease progression, Impaired cognition/judgement, Infection with risk of complications, Injectable medication education/ administration I certify that my clinical findings support that this patient is homebound because: Impaired cognitive ability/safety, Unsafe to leave home unassisted, Poor cardiac reserve
--- NOTE | 2018-04-03 16:11 | P.DCO ---
Post Hospital Infusion Therapy Location of Infusion Therapy: Home Health Care IV Infusion Order Patient Weight: 87 kg - Diagnosis (1) Complicated UTI (urinary tract infection) Code(s): N39.0 - Urinary tract infection, site not specified (2) Urinary tract infection due to ESBL Klebsiella Code(s): N39.0 - Urinary tract infection, site not specified; B96.89 - Other specified bacterial agents as the cause of diseases classified elsewhere (3) MRSA (methicillin resistant Staphylococcus aureus) infection Code(s): A49.02 - Methicillin resistant Staphylococcus aureus infection, unspecified site (4) Status post laser lithotripsy of ureteral calculus Code(s): Z98.890 - Other specified postprocedural states (5) MRSA bacteremia Code(s): R78.81 - Bacteremia (6) Infection with ESBL Klebsiella oxytoca Code(s): A49.8 - Other bacterial infections of unspecified site; Z16.12 - Extended spectrum beta lactamase (ESBL) resistance (7) Gram negative septicemia Code(s): A41.50 - Gram-negative sepsis, unspecified - Administer Medication Ertapenem Dose: 1 gram IV Directions: q 24 hours Start Treatment: 04/04/18 Stop Treatment: 04/14/18 Daptomycin Additional Dosing Instructions: Daptomycin 900 mg IV every 24 hours Start Treatment: 04/04/18 Stop Treatment: 04/14/18 - Additional Information Venous Access: Other (Midline or PICC line ) Additional Instructions: [x] Peripheral flush and dressing changes per protocol [x] Implanted port and central tnt line supervisor: * Implanted port: 10 ml Normal Saline followed by 5 ml Heparin 100 units/ml Heparin flush after each use and monthly to maintain. [] May leave port accessed during therapy. [] May leave peripheral site accessed for duration of therapy. [x] If patient has SOB or respiratory distress, check oxygen saturation. If less than 90% or clinical signs of respiratory distress, administer oxygen at 2 L/min. via nasal cannula and notify physician. [x] Anaphylaxis/Reaction orders: * Stop infusion. * Keep IV line open with saline flush. * Notify physician. * Monitor vital signs every 15 minutes until symptoms resolve. * Check Oxygen saturation; Oxygen at 2 L/min. via nasal cannula if less than 90% or clinical signs of respiratory distress. * Administer diphenhydramine (Benadryl) 25 mg IV STAT, (unless patient has received as pre-med). May repeat once, if necessary. * Solu-Cortef 250 mg IVP over 30-60 seconds, use 100 mg vials for each dissolution. * Epinephrine (1mg/1 ml) 0.3 mg subcutaneously or IVP now with any signs of respiratory distress. * Check with physician for new additional pre-med orders if patient is re- challenged or re-treated. [x] May remove PICC line when treatment complete, after confirming with Physician. [x] If the patient is admitted to the hospital, the ED, or transferred via [facility] , complete transfer form including medication reconciliation order sheet. Weekly Labs: CBC w/diff, Creatinine, CRP, LFTs (Hepatic Function Test), Serum CK Levels Case Management Consult: Yes Additional Information: Please draw labs on Sunday. Please call with abnormal lab results to Dr Matthew at number below and also fax results to fax number below: Ok to remove PICC line no call needed if patient clinically doing well. If patient still not well on day of PICC removal please call at above numbers to determine continuing need for PICC line. Allergies No Known Allergies Allergy (Unverified 03/29/18 12:31)
[2018-04-03] MEDS: Fluconazole 100 MG Tablet PO SCH (18:55)
[2018-04-03] MEDS: valACYclovir 500 MG Tab PO SCH (18:55)
[2018-04-03] MEDS: Latanoprost 0.005% Opth Drops 2.5 ML Bottle EACH EYE SCH (21:42)
[2018-04-04] MEDS: valACYclovir 500 MG Tab PO SCH ×3 (00:33→18:50)
[2018-04-04] MEDS: Fluconazole 100 MG Tablet PO SCH (09:59)
[2018-04-04] MEDS: Carvedilol 6.25 MG Tablet PO SCH ×2 (09:59→21:27)
[2018-04-04] MEDS: Ramipril 5 MG Capsule PO SCH ×2 (10:00→21:27)
[2018-04-04] MEDS: Furosemide 20 MG Tablet PO SCH (10:00)
[2018-04-04] MEDS: Insulin NovoLOG Aspart Correctional Sugar Inj SQ SCH ×4 (10:00→22:06)
[2018-04-04] MEDS: Sucralfate 1 GM Tablet PO SCH (10:00)
[2018-04-04] MEDS: amLODIPine 10 MG Tablet PO SCH (10:00)
[2018-04-04] MEDS: Pantoprazole Inj 40 MG Vial IV.PUSH SCH (10:01)
[2018-04-04 11:29] LABS: Hemoglobin 11.1 gm/dL (11.6-15.3); Mean Corpuscular HGB Conc 32.8 % (32.0-36.0); Mean Corpuscular Hemoglobin 29.3 pg (27.0-34.0); Mean Corpuscular Volume 89.3 fL (80.0-100.0); Platelet Count 193 th/mm3 (150-450); Red Blood Count 3.81 mil/mm3 (4.00-5.30); Red Cell Distribution Width 13.5 % (11.6-17.2); White Blood Count 7.2 th/mm3 (4.0-11.0)
--- NOTE | 2018-04-04 11:34 | P.PNFP ---
Addendum entered and electronically signed by Ama Hendrickson 04/04/18 18:59: Update 1500: Added respiratory home oxygen walk test prior to discharge. Will order oxygen tank for home if needed, following testing. Original Note: Subjective Interval history: Patient seen and examined this morning with and son in the room. She had no complaints today and was medically cleared by ID for discharge with a PICC line. Discussed plan for PICC line placement following confirmation from case management that [facility] would be able to cover the expense of Ertapenem and Daptomycin for 10 more days while patient is in [facility]. Patient and family are agreeable with plan. <Ama Hendrickson - 04/04/18 16:25> Results - Labs Result diagrams: 04/04/18 10:27 04/04/18 10:27 <Shu Le - 04/04/18 20:47> Abnormal lab results 04/03/18 04/04/18 04/04/18 Range/Units 21:41 07:32 10:27 RBC 3.81 L (4.00-5.30) mil/mm3 Hgb 11.1 L (11.6-15.3) gm/dL Hct 34.0 L (35.0-46.0) % Potassium (3.5-5.1) meq/L BUN (7-18) mg/dL Estimated GFR (>89) mL/min POC Glucose 169 H 148 H (68-110) mg/dl Random Glucose (74-106) mg/dL 04/04/18 04/04/18 04/04/18 Range/Units 10:27 11:55 17:53 RBC (4.00-5.30) mil/mm3 Hgb (11.6-15.3) gm/dL Hct (35.0-46.0) % Potassium 3.2 L (3.5-5.1) meq/L BUN 19 H (7-18) mg/dL Estimated GFR 61 L (>89) mL/min POC Glucose 258 H 137 H (68-110) mg/dl Random Glucose 216 H (74-106) mg/dL Short CBC 04/04/18 Range/Units 10:27 WBC 7.2 (4.0-11.0) th/mm3 Hgb 11.1 L (11.6-15.3) gm/dL Hct 34.0 L (35.0-46.0) % Plt Count 193 (150-450) th/mm3 BMP 04/04/18 10:27 Sodium 143 Potassium 3.2 L Chloride 105 Carbon Dioxide 26.1 BUN 19 H Creatinine 0.88 Calcium 8.6 <Shu Le - 04/04/18 20:47> Abnormal lab results 04/03/18 04/03/18 04/03/18 Range/Units 12:24 17:24 21:41 RBC (4.00-5.30) mil/mm3 Hgb (11.6-15.3) gm/dL Hct (35.0-46.0) % POC Glucose 193 H 139 H 169 H (68-110) mg/dl 04/04/18 04/04/18 Range/Units 07:32 10:27 RBC 3.81 L (4.00-5.30) mil/mm3 Hgb 11.1 L (11.6-15.3) gm/dL Hct 34.0 L (35.0-46.0) % POC Glucose 148 H (68-110) mg/dl Short CBC 04/04/18 Range/Units 10:27 WBC 7.2 (4.0-11.0) th/mm3 Hgb 11.1 L (11.6-15.3) gm/dL Hct 34.0 L (35.0-46.0) % Plt Count 193 (150-450) th/mm3 <Ama Hendrickson - 04/04/18 11:34> Physical Exam Vital signs: Vital Signs 04/03/18 21:00 04/04/18 00:00 04/04/18 04:00 Temperature 97.9 F 98.0 F Pulse Rate 52 L 60 Respiratory Rate 17 17 Blood Pressure 146/71 H 161/69 H Pulse Oximetry 97 99 98 Pulse Oximetry [Exertion on Room Air] Pulse Oximetry [Exertion with Oxygen] Pulse Oximetry [Resting on Room Air] 04/04/18 07:51 04/04/18 08:00 04/04/18 09:55 Temperature 97.6 F Pulse Rate 64 55 L 68 Respiratory Rate 18 Blood Pressure 145/62 H Pulse Oximetry 98 Pulse Oximetry [Exertion on Room Air] Pulse Oximetry [Exertion with Oxygen] Pulse Oximetry [Resting on Room Air] 04/04/18 11:44 04/04/18 12:00 04/04/18 15:34 Temperature 98 F Pulse Rate 58 L 55 L 60 Respiratory Rate 18 Blood Pressure 138/76 Pulse Oximetry 98 Pulse Oximetry [Exertion on Room Air] Pulse Oximetry [Exertion with Oxygen] Pulse Oximetry [Resting on Room Air] 04/04/18 18:06 Temperature Pulse Rate Respiratory Rate Blood Pressure Pulse Oximetry Pulse Oximetry [Exertion on Room Air] 78 L Pulse Oximetry [Exertion with Oxygen] 94 L Pulse Oximetry [Resting on Room Air] 98 Intake & Output 04/04/18 04/04/18 04/05/18 06:59 18:59 06:59 Intake Total 480 / 480 100 / 100 Output Total 300 / 300 Balance 180 / 180 100 / 100 Weight 86.7 kg Intake: IV 100 / 100 Cubicin Inj 900 MG In NS Inj 100 / 100 100 ML @ 200 mls/hr IV.SIG Q24H [facility] Rx#:[id number] Oral 480 / 480 Output: Urine 300 / 300 <Vey,Shu - 04/04/18 20:47> Vital Signs 04/03/18 11:49 04/03/18 12:00 04/03/18 16:00 Temperature 97.9 F Pulse Rate 64 54 L 64 Respiratory Rate 17 Blood Pressure 145/65 H Pulse Oximetry 95 04/03/18 18:00 04/03/18 20:00 04/03/18 21:00 Temperature 98.2 F 97.9 F Pulse Rate 91 H 68 Respiratory Rate 17 18 Blood Pressure 132/72 158/80 H Pulse Oximetry 96 98 97 04/04/18 00:00 04/04/18 04:00 04/04/18 07:51 Temperature 97.9 F 98.0 F Pulse Rate 52 L 60 64 Respiratory Rate 17 17 Blood Pressure 146/71 H 161/69 H Pulse Oximetry 99 98 04/04/18 08:00 04/04/18 09:55 Temperature 97.6 F Pulse Rate 55 L 68 Respiratory Rate 18 Blood Pressure 145/62 H Pulse Oximetry 95 Intake & Output 04/03/18 04/04/18 04/04/18 18:59 06:59 18:59 Intake Total 1720 / 1720 480 / 480 Output Total 300 / 300 Balance 1720 / 1720 180 / 180 Weight 87 kg 86.7 kg Intake: IV 1720 / 1720 NS Inj 1,000 ML @ 100 mls/hr IV 1620 / 1620 .CONT .Q10H [facility] Rx#:[id number] Cubicin Inj 900 MG In NS Inj 100 / 100 100 ML @ 200 mls/hr IV.SIG Q24H [facility] Rx#:[id number] Oral 480 / 480 Output: Urine 300 / 300 <Ama Hendrickson Dorothy - 04/04/18 11:34> Narrative: Narrative: GENERAL: Elderly white female sitting up in bed, in no acute distress SKIN: Warm and dry. Vesicular rash on right forehead in V1 dermatome. Vesicular lesions also on left side of lower lip and chin. HEAD: Atraumatic. Normocephalic. EYES: No scleral icterus. No injection or drainage. ENT: No nasal bleeding or discharge. NECK: Trachea midline. No JVD. CARDIOVASCULAR: Regular rate and rhythm. RESPIRATORY: No accessory muscle use. Clear to auscultation. Breath sounds equal bilaterally. GASTROINTESTINAL: Abdomen soft, non-tender, nondistended. MUSCULOSKELETAL: Extremities without clubbing, cyanosis, or edema. No obvious deformities. NEUROLOGICAL: Awake and alert. No obvious cranial nerve deficits. Motor grossly within normal limits. Five out of 5 muscle strength in the arms and legs. Normal speech. <Ama Hendrickson Dorothy - 04/04/18 16:25> Assessment and Plan - Assessment (1) Shingles rash Code(s): B02.9 - Zoster without complications Status: Acute (2) Severe sepsis Code(s): A41.9 - Sepsis, unspecified organism; R65.20 - Severe sepsis without septic shock Status: Acute (3) Acute UTI Code(s): N39.0 - Urinary tract infection, site not specified Status: Acute (4) Hypokalemia Code(s): E87.6 - Hypokalemia Status: Resolved (5) Dilated cardiomyopathy Code(s): I42.0 - Dilated cardiomyopathy Status: Chronic (6) Creatinine elevation Code(s): R79.89 - Other specified abnormal findings of blood chemistry Status : Resolved (7) Altered mental status Code(s): R41.82 - Altered mental status, unspecified Status: Resolved (8) Hypertension Code(s): I10 - Essential (primary) hypertension Status: Chronic (9) Hyperlipidemia Code(s): E78.5 - Hyperlipidemia, unspecified Status: Chronic (10) Diabetes mellitus Code(s): E11.9 - Type 2 diabetes mellitus without complications Status: Chronic (11) Nutrition, metabolism, and development symptoms Code(s): R63.8 - Other symptoms and signs concerning food and fluid intake Status: Acute (12) DVT prophylaxis Status: Acute <Shu Le - 04/04/18 20:47> (1) Shingles rash Code(s): B02.9 - Zoster without complications Status: Acute Plan: Vesicular rash on right forehead in V1 dermatome. Vesicular lesions also on chin and left lower lip. Patient denies any pain/burning/itching. Due to rash appearing within 72 hour time window will treat. -Started on Valacyclovir 1000 mg 3 times daily on 04/03 (2) Severe sepsis Code(s): A41.9 - Sepsis, unspecified organism; R65.20 - Severe sepsis without septic shock Status: Acute Plan: Patient met severe sepsis on admission due to fever of 102.6F, heart rate of 100 , WBC 2.5, lactic acid 2.6, following outpatient laser lithotripsy with AMS on . Urine culture positive for ESBL, MRSA and proteus mirabilis. ID consulted and originally placed on Meropenem. Despite antibiotic treatment WBC continued to rise, patient then switched to Ertapenem & Daptomycin. Patient is now stable. Beginning discharge planning. Plan to send home on IV Ertapenem & Daptomycin via PICC line, once confirms that [place] will be able to cover the expenses for antibiotic treatment. Patient's family is familiar with using PICC line from the patient's prior admission and are agreeable with plan to send home following PICC placement. -Day 5 of Daptomycin 900mg IV per ID (03/31- ) -Day 4 of Ertapenem 1g IV per ID (04/01- ) -BCx x2 03/30: NGTD -UCx 04/01: Luz Elena albicans, placed on Fluconazole on 04/03 by ID (3) Acute UTI Code(s): N39.0 - Urinary tract infection, site not specified Status: Acute Plan: Patient with urine culture positive for ESBL, MRSA and proteus mirabilis. -See severe sepsis plan above (4) Hypokalemia Code(s): E87.6 - Hypokalemia Status: Resolved Plan: Patient's potassium level 2.8 on 04/02. Could be due to daily furosemide. Has corrected today. -Will continue to monitor and replete as needed (5) Dilated cardiomyopathy Code(s): I42.0 - Dilated cardiomyopathy Status: Chronic Plan: 2D Echo on 03/30 showed EF approximately 35-40% by echo with global hypokinesis and mild regurgitation of mitral and tricuspid valves. BNP 1752 on 03/30, decreased to 387 on 03/31. -On Lasix 20mg PO daily -Cardio consult: recommended to continue Carvedilol 12.5 mg PO BID, Ramipril 5mg PO BID and Lasix 20 mg PO daily. Will repeat echo in 3-4 months and will continue to see patient in the hospital and on an outpatient basis (6) Creatinine elevation Code(s): R79.89 - Other specified abnormal findings of blood chemistry Status : Resolved Plan: Patient presented post lithotripsy with creatinine elevation, has now resolved (7) Altered mental status Code(s): R41.82 - Altered mental status, unspecified Status: Resolved Plan: AMS has resolved. 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 Will need outpatient further evaluation and monitoring for this. (8) Hypertension Code(s): I10 - Essential (primary) hypertension Status: Chronic Plan: Medications: -Continue home amlodipine, carvedilol, furosemide, and ramipril -Clonidine 0.1 mg every 6 hours as needed for blood pressure greater than 180/ 110 (9) Hyperlipidemia Code(s): E78.5 - Hyperlipidemia, unspecified Status: Chronic Plan: Medications: -Continue home atorvastatin (10) Diabetes mellitus Code(s): E11.9 - Type 2 diabetes mellitus without complications Status: Chronic Plan: Medications: -Hold home glimepiride -Sliding scale insulin per protocol (11) Nutrition, metabolism, and development symptoms Code(s): R63.8 - Other symptoms and signs concerning food and fluid intake Status: Acute Plan: -Fluids: tolerating po -Diet: speech therapy cleared patient for thin liquids and soft mechanical diet. -Electrolytes: See hypokalemia plan above -Prophylaxis: Calcium carbonate as needed for reflux, Zofran as needed for nausea/vomiting, Marie-Colace as needed for constipation, clonidine as needed for blood pressure greater than 180/110, Tylenol as needed for fever/pain (12) DVT prophylaxis Status: Acute Plan: Patient not on heparin due to patient and family preference with recent GI bleed. Bilateral SCDs ordered. <Ama Hendrickson - 04/04/18 16:27> - Assessment and Plan 87-year-old female with past medical history of hypertension presented to the ED with AMS meeting sepsis criteria with UTI with urine culture positive for ESBL and MRSA. Also noted to have herpes zoster outbreak on 04/03. <Ama Hendrickson - 04/04/18 16:36> Discussed Condition With: Dr. Le <Ama Hendrickson - 04/04/18 16:36> Discharge Planning: Will discharge patient with PICC line for 10 more days of antibiotic treatment with Ertapenem and Daptomycin. Will give prescription for Valancylovir for herpes zoster outbreak on forehead and chin. <Ama Hendrickson - 04/04/18 16:36> - Attending Attestation Patient seen, examined today, and discussed with Dr Hendrickson. I agree with assessment and management as documented and discussed with me. Pt without complaints. Make arrangements for discharge today; pending PICC, PT, resp walk test. If arranged, discharge today. If not, then d/c tomorrow. <Shu Le - 04/04/18 20:47> <Ama Hendrickson - Last Filed: 04/04/18 16:27> (1) Shingles rash Qualifiers: Herpes zoster complications: without complications Qualified Code(s): B02.9 - Zoster without complications (7) Altered mental status Qualifiers: Altered mental status type: somnolence Qualified Code(s): R40.0 - Somnolence (8) Hypertension Qualifiers: Hypertension type: essential hypertension Qualified Code(s): I10 - Essential (primary) hypertension (9) Hyperlipidemia Qualifiers: Hyperlipidemia type: unspecified Qualified Code(s): E78.5 - Hyperlipidemia, unspecified (10) Diabetes mellitus Qualifiers: Diabetes mellitus type: type 2 Diabetes mellitus group home insulin use: unspecified terminal operator insulin use status Diabetes mellitus complication status : with unspecified complications Qualified Code(s): E11.8 - Type 2 diabetes mellitus with unspecified complications <Shu Le - Last Filed: 04/04/18 20:47> (1) Shingles rash Qualifiers: Herpes zoster complications: without complications Qualified Code(s): B02.9 - Zoster without complications (7) Altered mental status Qualifiers: Altered mental status type: somnolence Qualified Code(s): R40.0 - Somnolence (8) Hypertension Qualifiers: Hypertension type: essential hypertension Qualified Code(s): I10 - Essential (primary) hypertension (9) Hyperlipidemia Qualifiers: Hyperlipidemia type: unspecified Qualified Code(s): E78.5 - Hyperlipidemia, unspecified (10) Diabetes mellitus Qualifiers: Diabetes mellitus type: type 2 Diabetes mellitus terminal operator insulin use: unspecified group home insulin use status Diabetes mellitus complication status : with unspecified complications Qualified Code(s): E11.8 - Type 2 diabetes mellitus with unspecified complications <Ama Hendrickson - Last Filed: 04/04/18 16:27> (1) Shingles rash Qualifiers: Herpes zoster complications: without complications Qualified Code(s): B02.9 - Zoster without complications (7) Altered mental status Qualifiers: Altered mental status type: somnolence Qualified Code(s): R40.0 - Somnolence (8) Hypertension Qualifiers: Hypertension type: essential hypertension Qualified Code(s): I10 - Essential (primary) hypertension (9) Hyperlipidemia Qualifiers: Hyperlipidemia type: unspecified Qualified Code(s): E78.5 - Hyperlipidemia, unspecified (10) Diabetes mellitus Qualifiers: Diabetes mellitus type: type 2 Diabetes mellitus group home insulin use: unspecified group home insulin use status Diabetes mellitus complication status : with unspecified complications Qualified Code(s): E11.8 - Type 2 diabetes mellitus with unspecified complications <Shu Le - Last Filed: 04/04/18 20:47> (1) Shingles rash Qualifiers: Herpes zoster complications: without complications Qualified Code(s): B02.9 - Zoster without complications (7) Altered mental status Qualifiers: Altered mental status type: somnolence Qualified Code(s): R40.0 - Somnolence (8) Hypertension Qualifiers: Hypertension type: essential hypertension Qualified Code(s): I10 - Essential (primary) hypertension (9) Hyperlipidemia Qualifiers: Hyperlipidemia type: unspecified Qualified Code(s): E78.5 - Hyperlipidemia, unspecified (10) Diabetes mellitus Qualifiers: Diabetes mellitus type: type 2 Diabetes mellitus group home insulin use: unspecified terminal operator insulin use status Diabetes mellitus complication status : with unspecified complications Qualified Code(s): E11.8 - Type 2 diabetes mellitus with unspecified complications
[2018-04-04 11:46] LABS: Calcium 8.6 mg/dL (8.5-10.1); Carbon Dioxide 26.1 meq/L (21.0-32.0); Potassium 3.2 meq/L (3.5-5.1)
[2018-04-04] MEDS: DAPTOmycin Inj 900 MG in Sodium Chlor 0.9% Inj 100 ML IV.SIG SCH (14:31)
--- NOTE | 2018-04-04 14:57 | P.DCO ---
- Physical Therapy Order: Evaluate and treat, Improve ambulation, Strength and gait training - Home Health Nursing Order: Medical education, Nursing assessment with vital signs, IV medication administration - Certification I have seen patient Mellissa Jaime on 04/04/18. My clinical findings support the need for the requested home health care services because: Limited mobility due to disease progression, Deconditioned with increased weakness, High risk of falls I certify that my clinical findings support that this patient is homebound because: Unsteady gait/balance, Unsafe to leave home unassisted
[2018-04-04] MEDS ORDERED: Heparin Central Flush 100 UNIT/ML 5 ML Vial IV.FLUSH PRN (17:00)
--- NOTE | 2018-04-04 17:33 | P.PNID ---
Infectious Disease Brief Note Dw : Post hospital infusion orders in chart. Dc on 10 more days of Ertapenem IV and Dapto IV. Will sign off please call back if any change in clinical condition or questions. Vital Signs - 24 hr 04/03/18 18:00 04/03/18 20:00 04/03/18 21:00 Temperature 98.2 F 97.9 F Pulse Rate 91 H 68 Respiratory Rate 17 18 Blood Pressure 132/72 158/80 H Pulse Oximetry 96 98 97 04/04/18 00:00 04/04/18 04:00 04/04/18 07:51 Temperature 97.9 F 98.0 F Pulse Rate 52 L 60 64 Respiratory Rate 17 17 Blood Pressure 146/71 H 161/69 H Pulse Oximetry 99 98 04/04/18 08:00 04/04/18 09:55 04/04/18 11:44 Temperature 97.6 F Pulse Rate 55 L 68 58 L Respiratory Rate 18 Blood Pressure 145/62 H Pulse Oximetry 98 04/04/18 12:00 04/04/18 15:34 Temperature 98 F Pulse Rate 55 L 60 Respiratory Rate 18 Blood Pressure 138/76 Pulse Oximetry 98 Laboratory Results - last 24 hr 04/03/18 04/03/18 04/04/18 17:24 21:41 07:32 WBC RBC Hgb Hct MCV MCH MCHC RDW Plt Count MPV Sodium Potassium Chloride Carbon Dioxide Anion Gap BUN Creatinine Estimated GFR POC Glucose 139 H 169 H 148 H Random Glucose Calcium 04/04/18 04/04/18 04/04/18 10:27 10:27 11:55 WBC 7.2 RBC 3.81 L Hgb 11.1 L Hct 34.0 L MCV 89.3 MCH 29.3 MCHC 32.8 RDW 13.5 Plt Count 193 MPV 9.0 Sodium 143 Potassium 3.2 L Chloride 105 Carbon Dioxide 26.1 Anion Gap 12 BUN 19 H Creatinine 0.88 Estimated GFR 61 L POC Glucose 258 H Random Glucose 216 H Calcium 8.6
[2018-04-04] MEDS: Latanoprost 0.005% Opth Drops 2.5 ML Bottle EACH EYE SCH (21:27)
[2018-04-05] MEDS: valACYclovir 500 MG Tab PO SCH ×2 (00:46→10:21)
[2018-04-05] MEDS: Fluconazole 100 MG Tablet PO SCH (08:09)
[2018-04-05] MEDS: Sucralfate 1 GM Tablet PO SCH (08:10)
[2018-04-05] MEDS: amLODIPine 10 MG Tablet PO SCH (08:10)
[2018-04-05] MEDS: Furosemide 20 MG Tablet PO SCH (08:10)
[2018-04-05] MEDS: Ramipril 5 MG Capsule PO SCH (08:10)
[2018-04-05] MEDS: Carvedilol 6.25 MG Tablet PO SCH (08:12)
[2018-04-05] MEDS: Insulin NovoLOG Aspart Correctional Sugar Inj SQ SCH ×2 (08:17→12:50)
[2018-04-05] MEDS ORDERED: Heparin Central Flush 100 UNIT/ML 5 ML Vial IV.FLUSH SCH (09:00)
[2018-04-05] MEDS: Pantoprazole Inj 40 MG Vial IV.PUSH SCH (10:21)
--- NOTE | 2018-04-05 11:57 | P.PNFP ---
Subjective Interval history: Patient seen and examined this morning. She states that she is feeling well and is ready to go home. She has no complaints. No chest pain, no shortness of breath, no abdominal pain, no fevers/chills, she is urinating and stooling well. <Idania Espinal - 04/05/18 11:57> Results - Labs Result diagrams: 04/04/18 10:27 04/04/18 10:27 <Shu Le - 04/05/18 20:01> Abnormal lab results 04/04/18 04/05/18 04/05/18 Range/Units 21:05 07:16 11:42 POC Glucose 157 H 119 H 220 H (68-110) mg/dl <Shu Le - 04/05/18 20:01> Abnormal lab results 04/04/18 04/04/18 04/04/18 Range/Units 11:55 17:53 21:05 POC Glucose 258 H 137 H 157 H (68-110) mg/dl 04/05/18 Range/Units 07:16 POC Glucose 119 H (68-110) mg/dl <Idania Espinal - 04/05/18 11:57> Physical Exam Vital signs: Vital Signs 04/04/18 20:00 04/04/18 21:15 04/05/18 00:00 Temperature 97.6 F 97.2 F L Pulse Rate 73 48 L Respiratory Rate 18 18 Blood Pressure 128/72 134/57 L Pulse Oximetry 97 96 98 04/05/18 01:46 04/05/18 04:00 04/05/18 08:00 Temperature 97.6 F 97.9 F Pulse Rate 52 L 59 L Respiratory Rate 16 16 Blood Pressure 135/57 L 149/67 H Pulse Oximetry 98 98 98 04/05/18 08:15 04/05/18 12:00 04/05/18 12:08 Temperature 98.2 F Pulse Rate 81 57 L 54 L Respiratory Rate 18 Blood Pressure 132/60 Pulse Oximetry 99 04/05/18 17:42 Temperature Pulse Rate Respiratory Rate Blood Pressure Pulse Oximetry 99 Intake & Output 04/05/18 04/05/18 04/06/18 06:59 18:59 06:59 Intake Total 240 / 240 Output Total 400 / 400 Balance -160 / -160 Weight 86.5 kg Intake: Oral 240 / 240 Output: Urine 400 / 400 <Shu Le - 04/05/18 20:01> Vital Signs 04/04/18 12:00 04/04/18 15:34 04/04/18 16:00 Temperature 98 F 97.1 F L Pulse Rate 55 L 60 59 L Respiratory Rate 18 20 Blood Pressure 138/76 165/62 H Pulse Oximetry 98 99 Pulse Oximetry [Exertion on Room Air] Pulse Oximetry [Exertion with Oxygen] Pulse Oximetry [Resting on Room Air] 04/04/18 18:06 04/04/18 20:00 04/04/18 21:15 Temperature 97.6 F Pulse Rate 73 Respiratory Rate 18 Blood Pressure 128/72 Pulse Oximetry 97 96 Pulse Oximetry [Exertion on Room Air] 78 L Pulse Oximetry [Exertion with Oxygen] 94 L Pulse Oximetry [Resting on Room Air] 98 04/05/18 00:00 04/05/18 01:46 04/05/18 04:00 Temperature 97.2 F L 97.6 F Pulse Rate 48 L 52 L Respiratory Rate 18 16 Blood Pressure 134/57 L 135/57 L Pulse Oximetry 98 98 98 Pulse Oximetry [Exertion on Room Air] Pulse Oximetry [Exertion with Oxygen] Pulse Oximetry [Resting on Room Air] 04/05/18 08:00 04/05/18 08:15 Temperature 97.9 F Pulse Rate 59 L 81 Respiratory Rate 16 Blood Pressure 149/67 H Pulse Oximetry 98 Pulse Oximetry [Exertion on Room Air] Pulse Oximetry [Exertion with Oxygen] Pulse Oximetry [Resting on Room Air] Intake & Output 04/04/18 04/05/18 04/05/18 18:59 06:59 18:59 Intake Total 1200 / 1200 240 / 240 Output Total 800 / 800 400 / 400 Balance 400 / 400 -160 / -160 Weight 86.5 kg Intake: IV 200 / 200 Cubicin Inj 900 MG In NS Inj 100 / 100 100 ML @ 200 mls/hr IV.SIG Q24H KEESHA Rx#:[id number] INVanz Inj 1,000 MG In NS Inj 100 / 100 100 ML @ 200 mls/hr IV.SIG Q24H KEESHA Rx#:[id number] Oral 1000 / 1000 240 / 240 Output: Urine 800 / 800 400 / 400 Other: # Incontinent Voids 4 <Idania Espinal G - 04/05/18 11:57> Narrative: GENERAL: Elderly white female sitting up in bed, in no acute distress SKIN: Warm and dry. Vesicular rash on right forehead in V1 dermatome. Vesicular lesions also on left side of lower lip and chin that have started crusting over and healing well. HEAD: Atraumatic. Normocephalic. EYES: No scleral icterus. No injection or drainage. ENT: No nasal bleeding or discharge. NECK: Trachea midline. No JVD. CARDIOVASCULAR: Regular rate and rhythm. RESPIRATORY: No accessory muscle use. Clear to auscultation. Breath sounds equal bilaterally. GASTROINTESTINAL: Abdomen soft, non-tender, nondistended. MUSCULOSKELETAL: Extremities without clubbing, cyanosis, or edema. No obvious deformities. NEUROLOGICAL: Awake and alert. No obvious cranial nerve deficits. Motor grossly within normal limits. Five out of 5 muscle strength in the arms and legs. Normal speech. <Idania Espinal - 04/05/18 14:34> Assessment and Plan - Assessment (1) Shingles rash Code(s): B02.9 - Zoster without complications Status: Acute (2) Severe sepsis Code(s): A41.9 - Sepsis, unspecified organism; R65.20 - Severe sepsis without septic shock Status: Resolved (3) Acute UTI Code(s): N39.0 - Urinary tract infection, site not specified Status: Acute (4) Hypokalemia Code(s): E87.6 - Hypokalemia Status: Resolved (5) Dilated cardiomyopathy Code(s): I42.0 - Dilated cardiomyopathy Status: Chronic (6) Metabolic encephalopathy Code(s): G93.41 - Metabolic encephalopathy Status: Resolved (7) Hypertension Code(s): I10 - Essential (primary) hypertension Status: Chronic (8) Hyperlipidemia Code(s): E78.5 - Hyperlipidemia, unspecified Status: Chronic (9) Diabetes mellitus Code(s): E11.9 - Type 2 diabetes mellitus without complications Status: Chronic (10) Nutrition, metabolism, and development symptoms Code(s): R63.8 - Other symptoms and signs concerning food and fluid intake Status: Acute (11) DVT prophylaxis Status: Acute <Shu Le - 04/05/18 20:01> (1) Shingles rash Code(s): B02.9 - Zoster without complications Status: Acute Plan: Vesicular rash on right forehead in V1 dermatome. Vesicular lesions also on chin and left lower lip. Patient denies any pain/burning/itching. Due to rash appearing within 72 hour time window will treat. -Started on Valacyclovir 1000 mg 3 times daily on 04/03, will continue at home with rx (2) Severe sepsis Code(s): A41.9 - Sepsis, unspecified organism; R65.20 - Severe sepsis without septic shock Status: Resolved Plan: Patient met severe sepsis on admission due to fever of 102.6F, heart rate of 100 , WBC 2.5, lactic acid 2.6, following outpatient laser lithotripsy with AMS on . Urine culture positive for ESBL, MRSA and proteus mirabilis. ID consulted and originally placed on Meropenem. Despite antibiotic treatment WBC continued to rise, patient then switched to Ertapenem & Daptomycin. Patient is now stable. Beginning discharge planning. Plan to send home on IV Ertapenem & Daptomycin via PICC line, once confirms that [facility] will be able to cover the expenses for antibiotic treatment. Patient's family is familiar with using PICC line from the patient's prior admission and are agreeable with plan to send home following PICC placement. -Day 6 of Daptomycin 900mg IV per ID (03/31- ) continue for 9 more days -Day 6 of Ertapenem 1g IV per ID (04/01- ) continue for 9 more days -BCx x2 03/30: NGTD -UCx 04/01: Luz Elena albicans, placed on Fluconazole on 04/03 by ID (3) Acute UTI Code(s): N39.0 - Urinary tract infection, site not specified Status: Acute Plan: Patient with urine culture positive for ESBL, MRSA and proteus mirabilis. -See severe sepsis plan above (4) Hypokalemia Code(s): E87.6 - Hypokalemia Status: Resolved Plan: Patient's potassium level 2.8 on 04/02. Could be due to daily furosemide. Has corrected today. -Will continue to monitor and replete as needed (5) Dilated cardiomyopathy Code(s): I42.0 - Dilated cardiomyopathy Status: Chronic Plan: 2D Echo on 03/30 showed EF approximately 35-40% by echo with global hypokinesis and mild regurgitation of mitral and tricuspid valves. BNP 1752 on 03/30, decreased to 387 on 03/31. -On Lasix 20mg PO daily -Cardio consult: recommended to continue Carvedilol 12.5 mg PO BID, Ramipril 5mg PO BID and Lasix 20 mg PO daily. Will repeat echo in 3-4 months and will continue to see patient in the hospital and on an outpatient basis (6) Metabolic encephalopathy Code(s): G93.41 - Metabolic encephalopathy Status: Resolved Plan: AMS has resolved. 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 Will need outpatient further evaluation and monitoring for this. (7) Hypertension Code(s): I10 - Essential (primary) hypertension Status: Chronic Plan: Medications: -Continue home amlodipine, carvedilol, furosemide, and ramipril -Clonidine 0.1 mg every 6 hours as needed for blood pressure greater than 180/ 110 (8) Hyperlipidemia Code(s): E78.5 - Hyperlipidemia, unspecified Status: Chronic Plan: Medications: -Continue home atorvastatin (9) Diabetes mellitus Code(s): E11.9 - Type 2 diabetes mellitus without complications Status: Chronic Plan: Medications: -Hold home glimepiride -Sliding scale insulin per protocol (10) Nutrition, metabolism, and development symptoms Code(s): R63.8 - Other symptoms and signs concerning food and fluid intake Status: Acute Plan: -Fluids: tolerating po -Diet: speech therapy cleared patient for thin liquids and soft mechanical diet. -Electrolytes: See hypokalemia plan above -Prophylaxis: Calcium carbonate as needed for reflux, Zofran as needed for nausea/vomiting, Marie-Colace as needed for constipation, clonidine as needed for blood pressure greater than 180/110, Tylenol as needed for fever/pain (11) DVT prophylaxis Status: Acute Plan: Patient not on heparin due to patient and family preference with recent GI bleed. Bilateral SCDs ordered. <Idania Espinal - 04/05/18 13:06> - Assessment and Plan 87-year-old female with past medical history of hypertension presented to the ED with AMS meeting sepsis criteria with UTI with urine culture positive for ESBL and MRSA. Also noted to have herpes zoster outbreak on 04/03. <Idania Espinal - 04/05/18 14:34> Discharge Planning: Case management assisting with HHC. Discharge home today. <Idania Espinal - 04/05/18 14:34> - Attending Attestation Patient seen and examined this morning, discussed with Dr Espinal. I agree with assessment and management as documented and discussed with me. Pt seen with daughter at bedside. Daughter reports that antibiotics have been delivered and that a family member is at home for the oxygen to be delivered. Pt reports feeling well and feeling ready for discharge. Greater than 30 minutes spent by me personally counselling and coordinating care at discharge. <Shu Le - 04/05/18 20:01> <Idania Espinal - Last Filed: 04/05/18 13:06> (1) Shingles rash Qualifiers: Herpes zoster complications: without complications Qualified Code(s): B02.9 - Zoster without complications (7) Hypertension Qualifiers: Hypertension type: essential hypertension Qualified Code(s): I10 - Essential (primary) hypertension (8) Hyperlipidemia Qualifiers: Hyperlipidemia type: unspecified Qualified Code(s): E78.5 - Hyperlipidemia, unspecified (9) Diabetes mellitus Qualifiers: Diabetes mellitus type: type 2 Diabetes mellitus assisted insulin use: unspecified assisted insulin use status Diabetes mellitus complication status : with unspecified complications Qualified Code(s): E11.8 - Type 2 diabetes mellitus with unspecified complications <Shu Le - Last Filed: 04/05/18 20:01> (1) Shingles rash Qualifiers: Herpes zoster complications: without complications Qualified Code(s): B02.9 - Zoster without complications (7) Hypertension Qualifiers: Hypertension type: essential hypertension Qualified Code(s): I10 - Essential (primary) hypertension (8) Hyperlipidemia Qualifiers: Hyperlipidemia type: unspecified Qualified Code(s): E78.5 - Hyperlipidemia, unspecified (9) Diabetes mellitus Qualifiers: Diabetes mellitus type: type 2 Diabetes mellitus assisted insulin use: unspecified technician terminal and repeater insulin use status Diabetes mellitus complication status : with unspecified complications Qualified Code(s): E11.8 - Type 2 diabetes mellitus with unspecified complications <Idania Espinal - Last Filed: 04/05/18 13:06> (1) Shingles rash Qualifiers: Herpes zoster complications: without complications Qualified Code(s): B02.9 - Zoster without complications (7) Hypertension Qualifiers: Hypertension type: essential hypertension Qualified Code(s): I10 - Essential (primary) hypertension (8) Hyperlipidemia Qualifiers: Hyperlipidemia type: unspecified Qualified Code(s): E78.5 - Hyperlipidemia, unspecified (9) Diabetes mellitus Qualifiers: Diabetes mellitus type: type 2 Diabetes mellitus technician terminal and repeater insulin use: unspecified assisted insulin use status Diabetes mellitus complication status : with unspecified complications Qualified Code(s): E11.8 - Type 2 diabetes mellitus with unspecified complications <Shu Le - Last Filed: 04/05/18 20:01> (1) Shingles rash Qualifiers: Herpes zoster complications: without complications Qualified Code(s): B02.9 - Zoster without complications (7) Hypertension Qualifiers: Hypertension type: essential hypertension Qualified Code(s): I10 - Essential (primary) hypertension (8) Hyperlipidemia Qualifiers: Hyperlipidemia type: unspecified Qualified Code(s): E78.5 - Hyperlipidemia, unspecified (9) Diabetes mellitus Qualifiers: Diabetes mellitus type: type 2 Diabetes mellitus assisted insulin use: unspecified assisted insulin use status Diabetes mellitus complication status : with unspecified complications Qualified Code(s): E11.8 - Type 2 diabetes mellitus with unspecified complications
[2018-04-05] MEDS: DAPTOmycin Inj 900 MG in Sodium Chlor 0.9% Inj 100 ML IV.SIG SCH (13:46)
--- NOTE | 2018-04-19 19:33 | P.DS ---
Date of admission: 03/29/18 15:23 Primary care physician: Sirisha Renee Brief History from admission: Mrs. Jaime is a 87 y/o F presenting to the ED s/p laser lithotripsy with AMS. Patient is unable to provide history, but she is accompanied by her daughter and who provided the history. Patient does answer intermittent yes/no questioning between falling asleep during the interview. They state that her procedure went well with Dr. Klein, Urology. However she became tachycardic with chills post-procedure. Temperature was not obtained per the patient's daughter due to "the monitor's not picking up her temeprature." She was given one dose of morphine for back pain and a dose of gentamicin. Her mental status then acutely changed. She was originally AAOx3 with mild drowsiness prior to the morphine, but became AAOx0 after the medication. Due to her rapid change in mental state as well as her continued tachycardia, patient was transferred to [facility] for further evaluation. Her daughter reports that she is very sensitive to opiate medications. During a previous hospitalization, she has had a very similar episode where she became disoriented after opiate medications. Her also reports two episodes of possible hallucinations this week which is not normal for the patient at her baseline. He states that shortly after awakening she would complain of "men" coming into their house. Upon questioning later in the day, she denied the statements "like they did not happen." Both her daughter and her state that her long-term memory remains intact, however she is beginning to lose her short-term memory. Otherwise they have no acute complaints and the patient denies any chest pain, shortness of breath, NVD, or calf tenderness. Past medical history: -Hyperlipidemia -Hypertension -History of DVT, currently not on anticoagulation due to gastric ulceration. 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 They do not require assistance with ADLs. -Patient ambulates with assistance of walker. -Patient denies any tobacco or illicit drug history. -Patient has occasional alcohol use. DS: Diagnosis - Discharge Diagnosis (1) Shingles rash Status: Acute (2) Severe sepsis Status: Resolved (3) Acute UTI Status: Acute (4) Hypokalemia Status: Resolved (5) Dilated cardiomyopathy Status: Chronic (6) Creatinine elevation Status: Resolved (7) Altered mental status Status: Resolved (8) Hypertension Status: Chronic (9) Hyperlipidemia Status: Chronic (10) Diabetes mellitus Status: Chronic (11) Nutrition, metabolism, and development symptoms Status: Acute (12) DVT prophylaxis Status: Acute DS: Medications - Discharge Medications Prescriptions: fluconazole 100 mg PO DAILY #5 tab valacyclovir [Valtrex] 1,000 mg PO Q8H #18 tab DS: Summary Hospital Course: This is an 87-year-old female with history of hypertension, hyperlipidemia, who was status post outpatient laser lithotripsy for kidney stone admitted for acute mental status. Patient with severe sepsis criteria on admission due to fever, tachycardia, elevated WBC count and elevated lactic acid. Urine culture and blood cultures x2 came back positive for ESBL Proteus mirabilis and MRSA. Repeat urine culture showed Luz Elena albicans and repeat blood cultures showed no growth in 5 days. Infectious disease consulted, who managed antibiotic treatment. [facility] called for patient overnight due to low oxygen saturation and patient was transferred to ICU. This x-ray showed signs of pulmonary edema and troponin was elevated to 1.5, patient placed on oxygen, ASA and lasix given. Cardiology consulted and ordered echo which showed global hypokinesis with ejection fraction of 35-40%. Cardio recommended repeat echo in 3-4 months with outpatient follow-up. Following targeted antibiotic treatment per infectious disease and for CHF patient's status significantly improved. Infectious disease recommended PICC line placement with continued antibiotic treatment of ertapenem and daptomycin for 10 more days following discharge. Patient discharged to home in stable condition with home health service for PICC line. To follow-up with PCP for hospital follow-up and cardiology. - Time Spent with Patient Total time spent providing and/or coordinating discharge services: - Quality: VTE Deep Vein Thrombosis/Pulmonary Embolism Present on Admission: No Results Procedures completed during hospitalization: none - Impressions ITS Impressions Abdomen/Pelvis CT 03/29/18 12:35 CONCLUSION: 1. Left kidney stones. Left ureteral stent in satisfactory position. No evidence of perinephric hematoma or other specific complication 2. Gallstone. Unexplained density adjacent to the right lobe of the liver which could be exophytic liver mass or other mass or artifactual in the setting of significant patient motion. Chest X-Ray 03/30/18 07:02 CONCLUSION: 1. Cardiomegaly with increase in pulmonary vascularity. 2. Prominence of mediastinum. Consider PA and lateral views of the chest for further evaluation. Discharge Plan - Discharge Disposition Patient Disposition: W/Home Health Service - Discharge Condition Condition: Stable - Discharge Order Discharge Orders: Discharge Order (Routine); Ordered 04/04/18 Ordered By: Ama Hendrickson - Discharge Details Anticipated Discharge Date: 04/04/18 Discharge Comment: discharge after picc line placement - Physicians Team Attending Provider: Shu Le Other Providers: Jon Juárez MD ; Sara Lord MD
== END 2018-04-05 18:11 | disposition home health service (06) ==
LOC: NEPE 11:56 → NEDA 15:23 → N04 19:33 → N03 03-30 11:49 → N04 04-01 14:04
PROVIDERS: ADMIT Family Medicine; ATTEND Family Medicine